=== PATIENT | female | born 1945 | race Caucasian/White ===

== ENCOUNTER 2018-01-18 12:57 | Inpatient (IN) ==
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
[2018-01-18] MEDS ORDERED: *HR* Dextrose 50 % in Water (Syg) 50 ML SYRINGE IVP PRN (14:50)
[2018-01-18] MEDS ORDERED: Dextrose Gel 15 GM/37.5 ML TUBE PO PRN ×2 (14:50)
[2018-01-18] MEDS ORDERED: D5% in Water 1,000 ML IVC PRN (14:50)
[2018-01-18] MEDS ORDERED: Ondansetron ODT 4 MG TAB.RAPDIS SL PRN (14:51)
[2018-01-18] MEDS ORDERED: OXYCODONE HCL 5 MG PO PRN (14:51)
[2018-01-18] MEDS ORDERED: Mag Hydrox/Al Hydrox/Simeth 30 ML UDC PO PRN (14:51)
[2018-01-18] MEDS: Acetaminophen 325 MG TABLET PO PRN ×2 (16:10→23:26)
[2018-01-18] MEDS: *HR* OxyCODONE Immed Rel 5 MG TABLET PO PRN ×2 (17:01→21:53)
[2018-01-18] MEDS: Insulin LISPRO 300 UNITS/3 ML VIAL SQ SCH (17:25)
[2018-01-18] MEDS ORDERED: Insulin LISPRO 300 UNITS/3 ML VIAL SQ SCH (21:00)
[2018-01-18] MEDS: Doxycycline 100 MG CAPSULE PO SCH (21:52)
[2018-01-18] MEDS: Latanoprost 2.5 ML BOTTLE BOTH EYES SCH (21:53)
[2018-01-18] MEDS: Progesterone Micronized 200 MG PO SCH (21:55)
[2018-01-19] MEDS: *HR* OxyCODONE Immed Rel 5 MG TABLET PO PRN ×5 (04:25→21:58)
[2018-01-19] MEDS: *HR* Enoxaparin 40 MG/0.4 ML SYRINGE SQ SCH (04:25)
[2018-01-19] MEDS: Insulin LISPRO 300 UNITS/3 ML VIAL SQ SCH (08:57)
[2018-01-19] MEDS: Niacin (24 HR) 500 MG TAB.ER.24H PO SCH (09:04)
[2018-01-19] MEDS: Multivit/Ca/Min/Fe/FA 1 TAB TABLET PO SCH (09:05)
[2018-01-19] MEDS: Cholecalciferol (D-3) 1,000 UNIT TABLET PO SCH (09:05)
[2018-01-19] MEDS: Verapamil ER (24 HR) 240 MG TABLET.ER PO SCH (09:05)
[2018-01-19] MEDS: Sennosides/Docusate Sodium TABLET PO SCH (09:05)
[2018-01-19] MEDS: Lactobacillus 1 EACH CAP.SPRINK PO SCH (09:05)
[2018-01-19] MEDS: Furosemide 20 MG TABLET PO SCH (09:05)
[2018-01-19] MEDS: Doxycycline 100 MG CAPSULE PO SCH ×2 (09:05→21:29)
[2018-01-19] MEDS: DHEA PO SCH (09:09)
[2018-01-19] MEDS: ICAPS AREDS FORMULA PO SCH (09:09)
[2018-01-19] MEDS: NATURAL THYROID PO SCH (09:09)
--- NOTE | 2018-01-19 09:40 | Internal Med Progress Note ---
Date of Encounter: 01/19/18 Time of Encounter: 09:37 - Assessment and plan (1) Radial fracture Current Visit: Yes Status: Acute Assessment and plan: Continue brace. Pain controlled. Qualifiers: Encounter type: subsequent encounter Radius location: shaft Fracture type : closed Fracture morphology: unspecified fracture morphology Laterality: right Fracture healing: with routine healing Qualified Code(s): S52.301D - Unspecified fracture of shaft of right radius, subsequent encounter for closed fracture with routine healing (2) Tibial plateau fracture Current Visit: Yes Status: Acute Assessment and plan: Continue brace. To remain nonweightbearing right lower extremity. Continue PT and OT. Monitor for effectiveness pain medication. Qualifiers: Encounter type: subsequent encounter Fracture type: closed Laterality: right Fracture healing: with routine healing Qualified Code(s): S82.141D - Displaced bicondylar fracture of right tibia, subsequent encounter for closed fracture with routine healing (3) Hypertension Current Visit: Yes Status: Acute Assessment and plan: Controlled with current medication. Monitor blood pressure. Qualifiers: Hypertension type: essential hypertension Qualified Code(s): I10 - Essential (primary) hypertension (4) Chronic kidney disease, stage III (moderate) Current Visit: Yes Status: Acute Assessment and plan: Labs ordered for today. Will follow for results. (5) Rib fractures Current Visit: Yes Status: Acute Assessment and plan: Lidoderm patch to bilateral ribs. Qualifiers: Encounter type: subsequent encounter Rib fracture type: multiple ribs Fracture type: closed Laterality: bilateral Fracture healing: with routine healing Qualified Code(s): S22.43XD - Multiple fractures of ribs, bilateral, subsequent encounter for fracture with routine healing (6) Traumatic compression fracture of T8 thoracic vertebra Current Visit: Yes Status: Acute Assessment and plan: Follow up with ortho as scheduled. Continue current pain medication. Qualifiers: Encounter type: subsequent encounter Fracture healing: with routine healing Qualified Code(s): S22.060D - Wedge compression fracture of T7-T8 vertebra, subsequent encounter for fracture with routine healing (7) Urinary tract infection Current Visit: Yes Status: Acute Assessment and plan: Patient states asymptomatic. Continue doxycycline. Qualifiers: Urinary tract infection type: site unspecified Qualified Code(s): N39.0 - Urinary tract infection, site not specified - Time Spent With Patient 25 - 35 minutes - Subjective Interval history: Patient resting in bed. Family at side. States increased knee pain throughout the night. Denies fever, chills, nausea, vomiting or diarrhea. States Lidoderm patch helps with pain in ribs. Has been using incentive spirometer. Maintaining appetite and hydration states bowels moved yesterday. Denies shortness of breath or chest pain. - Constitutional Vitals: Temp Pulse Resp BP Pulse Ox 98.4 F 74 20 168/74 95 01/19/18 08:00 01/19/18 08:00 01/19/18 08:00 01/19/18 08:00 01/19/18 08:00 General appearance: Present: cooperative, A&O X 3, pleasant, no acute distress, answers questions appropriately - Head Head exam: Present: atraumatic, normocephalic - Eye Eye exam: Present: PERRL, conjuntiva pink, sclera anicteric Pupils: Present: PERRL - Neck Neck exam general surgery: Present: supple, trachea midline. Absent: lymphadenopathy - Respiratory Respiratory exam: Present: CTAB. Absent: accessory muscle use, rales, rhonchi, wheezes - Cardiovascular Cardiovascular exam: Present: RRR, +S1, +S2. Absent: diastolic murmur, gallop, rubs, systolic murmur - GI/Abdominal GI/Abdominal exam: Present: normal bowel sounds, soft, no peritoneal signs. Absent: distended, tenderness - Extremities Exam Extremities exam: Present: warm, radial pulses palpable and symmetrical. Absent : calf tenderness, cyanotic, pedal edema - Incison Comments: right Forearm wrap and brace intact. RLE wrapped with ernie wrap ad brace on. - Neurological Exam Neurological exam: Present: CN II-XII intact, oriented X3, no focal deficits. Absent: pronater drift, facial droop, speech deficit - Skin Skin exam: Present: dry, intact Consult Discharge Plan - Plan Referrals: Latoya Haro [Primary Care Provider] - Russell Starkey [Family Provider] -
[2018-01-19] MEDS: Acetaminophen 325 MG TABLET PO PRN ×2 (10:33→21:31)
[2018-01-19 13:09] LABS: Hematocrit 28.8 % (35.3-44.9); Hemoglobin 9.2 g/dL (11.5-15.4); Mean Corpuscular HGB Conc 31.9 g/dL (31.6-35.5); Mean Corpuscular Hemoglobin 31.2 pg (28.0-33.3); Mean Corpuscular Volume 97.6 fL (83.0-100.0); Mean Platelet Volume 9.7 fL (9.4-12.4); Platelet Count 261 K/mcL (140-400); Red Blood Count 2.95 M/mcL (3.82-4.97); Red Cell Distribution Width 14.7 % (11.5-14.5)
[2018-01-19 13:25] LABS: Uric Acid 5.5 mg/dL (2.3-7.6)
[2018-01-19 20:12] LABS: C-Reactive Protein 276 mg/L (Less than 10)
[2018-01-19] MEDS: Latanoprost 2.5 ML BOTTLE BOTH EYES SCH (21:30)
[2018-01-19] MEDS: Progesterone Micronized 200 MG PO SCH (21:30)
[2018-01-20] MEDS: *HR* Enoxaparin 40 MG/0.4 ML SYRINGE SQ SCH (05:07)
[2018-01-20] MEDS: *HR* OxyCODONE Immed Rel 5 MG TABLET PO PRN ×5 (05:08→22:10)
[2018-01-20] MEDS: NATURAL THYROID PO SCH (05:13)
[2018-01-20] MEDS: Verapamil ER (24 HR) 240 MG TABLET.ER PO SCH (08:46)
[2018-01-20] MEDS: Furosemide 20 MG TABLET PO SCH (08:46)
[2018-01-20] MEDS: Sennosides/Docusate Sodium TABLET PO SCH (08:46)
[2018-01-20] MEDS: Doxycycline 100 MG CAPSULE PO SCH ×2 (08:46→22:09)
[2018-01-20] MEDS: Acetaminophen 325 MG TABLET PO PRN ×2 (08:46→15:46)
[2018-01-20] MEDS: Lactobacillus 1 EACH CAP.SPRINK PO SCH (08:46)
[2018-01-20] MEDS: Multivit/Ca/Min/Fe/FA 1 TAB TABLET PO SCH (08:47)
[2018-01-20] MEDS: Niacin (24 HR) 500 MG TAB.ER.24H PO SCH (08:47)
[2018-01-20] MEDS: Cholecalciferol (D-3) 1,000 UNIT TABLET PO SCH (08:47)
[2018-01-20] MEDS: DHEA PO SCH (08:50)
[2018-01-20] MEDS: ICAPS AREDS FORMULA PO SCH (08:50)
[2018-01-20] MEDS ORDERED: Levofloxacin 750 MG/150 ML 750 MG/150 ML BAG IVPB SCH (10:00)
--- NOTE | 2018-01-20 10:40 | Internal Med Progress Note ---
Date of Encounter: 01/20/18 Time of Encounter: 10:37 - Assessment and plan (1) Radial fracture Current Visit: Yes Status: Acute Qualifiers: Encounter type: subsequent encounter Radius location: shaft Fracture type : closed Fracture morphology: unspecified fracture morphology Laterality: right Fracture healing: with routine healing Qualified Code(s): S52.301D - Unspecified fracture of shaft of right radius, subsequent encounter for closed fracture with routine healing (2) Tibial plateau fracture Current Visit: Yes Status: Acute Assessment and plan: I suspect that this is not an infection of the joint, postsurgical. See my comments to patient, above. Qualifiers: Encounter type: subsequent encounter Fracture type: closed Laterality: right Fracture healing: with routine healing Qualified Code(s): S82.141D - Displaced bicondylar fracture of right tibia, subsequent encounter for closed fracture with routine healing (3) Hypertension Current Visit: Yes Status: Acute Assessment and plan: We will continue to monitor. Qualifiers: Hypertension type: essential hypertension Qualified Code(s): I10 - Essential (primary) hypertension (4) Chronic kidney disease, stage III (moderate) Current Visit: Yes Status: Acute Assessment and plan: We will obtain a basic metabolic panel as we will be starting new antibiotics. (5) Gout Current Visit: Yes Status: Acute Assessment and plan: Uric acid level is unremarkable. Qualifiers: Gout site: unspecified site Gout etiology: unspecified cause Chronicity: chronic Presence of tophus: without tophus Qualified Code(s): M1A.9XX0 - Chronic gout, unspecified, without tophus (tophi) (6) Glaucoma Current Visit: Yes Status: Acute Assessment and plan: We will continue multiple drops as before. Qualifiers: Glaucoma type: open-angle Open angle glaucoma type: unspecified type Laterality: bilateral Glaucoma stage: stage unspecified Qualified Code(s): H40.10X0 - Unspecified open-angle glaucoma, stage unspecified (7) Macular degeneration Current Visit: Yes Status: Acute Assessment and plan: Patient on supplements as before. Qualifiers: Macular degeneration type: unspecified type Eye laterality: bilateral Qualified Code(s): H35.30 - Unspecified macular degeneration (8) Suspected sleep apnea Current Visit: Yes Status: Acute Assessment and plan: She had no desaturation with oxygen, last night. She asked that her oxygen saturation monitor BP discontinued and this was done. (9) Rib fractures Current Visit: Yes Status: Acute Assessment and plan: Clinically doing well and lungs are clear. Qualifiers: Encounter type: subsequent encounter Rib fracture type: multiple ribs Fracture type: closed Laterality: bilateral Fracture healing: with routine healing Qualified Code(s): S22.43XD - Multiple fractures of ribs, bilateral, subsequent encounter for fracture with routine healing (10) Traumatic compression fracture of T8 thoracic vertebra Current Visit: Yes Status: Acute Assessment and plan: Not much complaint of pain with this as pain in the knee is far worse. Qualifiers: Encounter type: subsequent encounter Fracture healing: with routine healing Qualified Code(s): S22.060D - Wedge compression fracture of T7-T8 vertebra, subsequent encounter for fracture with routine healing (11) Urinary tract infection Current Visit: Yes Status: Acute Assessment and plan: May be recurrent so will get a straight catheter urinalysis with reflex culture. We will make sure that she is not having a urinary tract infection which seeded her right knee. Qualifiers: Urinary tract infection type: site unspecified Qualified Code(s): N39.0 - Urinary tract infection, site not specified - Subjective Interval history: Patient still having lots of knee pain in any emotion is problematic. She states that the pain is generally okay with pain medicine and at rest but motion severely hurts her. She has not noticed much drainage. Nursing notes foul-smelling and dark urine and patient concurs. She denies dysuria, hematuria, etc. Bowels are unremarkable. Patient has no complaint of chest discomfort, dyspnea, orthopnea, palpitations, nausea or vomiting, constipation or diarrhea, other changes in bowel habits, difficulty with urination, rash or itching, or other new complaints, except as mentioned above. Review of systems is otherwise negative. I discussed management of her care with nursing staff. She asks about her bilateral carotid duplex which has not yet returned. I explained to her that she is growing a gram-negative maria d and we will begin him. Levaquin IV. We will discuss with her surgeon on Monday and she is to have follow-up on Monday. I explained that we may have change in sensitivity in antibiotic, tomorrow. - Constitutional Vitals: Temp Pulse Resp BP Pulse Ox 98.3 F 69 16 173/76 95 01/20/18 07:31 01/20/18 07:31 01/20/18 07:31 01/20/18 07:31 01/20/18 07:31 General appearance: Present: cooperative, pleasant, answers questions appropriately Exam: Examined with nurse Moira and her [id number]. Examination: (Except as mentioned above): General: In no apparent distress. Alert and oriented 3. Nondiaphoretic. Head: Atraumatic and normocephalic. Respiratory: No use of accessory muscles. Lungs are clear throughout. Normal airflow. Cardiovascular: Regular rate and rhythm without murmur appreciated. Abdomen: Bowel sounds are normal. No hepatosplenomegaly mass or tenderness appreciated. Obese and therefore difficult to palpate deeply. Extremities: No cyanosis clubbing or edema. Wound drainage is not assessed but patient is left wrapped. In addition, note is made of tenderness at calf diffusely, both anterior and posterior. Skin: Warm and non-diaphoretic with no new lesions noted. Internal Medicine: Result - Labs CBC & Chem 7: 01/19/18 12:55 Labs: Short CBC 01/19/18 Range/Units 12:55 WBC 12.6 H (4.3-11.1) K/mcL Hgb 9.2 L (11.5-15.4) g/dL Hct 28.8 L (35.3-44.9) % Plt Count 261 (140-400) K/mcL Consult Discharge Plan - Plan Referrals: Latoya Haro [Primary Care Provider] - Russell Starkey [Family Provider] -
[2018-01-20] MEDS ORDERED: levoFLOXacin 500 MG TABLET PO SCH (15:15)
[2018-01-20 15:41] LABS: Bilirubin,Urine Negative (Negative); Blood,Urine Negative (Negative); Clarity,Urine Clear (Clear); Color,Urine Yellow (Yellow); Glucose,Urine (UA) Normal (Normal); Ketones,Urine Negative (Negative); Leukocyte Esterase,Urine Large (Negative); Nitrite,Urine Negative (Negative); Protein,Urine Negative (Neg-Trace); Urobilinogen,Urine Normal (Normal)
[2018-01-20 16:33] LABS: Bacteria,Urine Many per hpf (None-Few); Squamous Epithelial Cell,Urine Many per lpf (None-Few); WBC,Urine 15-30 per hpf (0-3)
[2018-01-20 18:19] LABS: Bilirubin,Urine Negative (Negative); Blood,Urine Negative (Negative); Clarity,Urine Clear (Clear); Color,Urine Yellow (Yellow); Glucose,Urine (UA) Normal (Normal); Ketones,Urine Negative (Negative); Leukocyte Esterase,Urine Moderate (Negative); Nitrite,Urine Positive (Negative); Protein,Urine Negative (Neg-Trace)
[2018-01-20 18:28] LABS: Bacteria,Urine Many per hpf (None-Few); Squamous Epithelial Cell,Urine Few per lpf (None-Few)
[2018-01-20 18:29] LABS: RBC,Urine 0-3 per hpf (0-3); WBC,Urine 15-30 per hpf (0-3)
[2018-01-20] MEDS: Latanoprost 2.5 ML BOTTLE BOTH EYES SCH (22:08)
[2018-01-20] MEDS: Progesterone Micronized 200 MG PO SCH (22:11)
[2018-01-21] MEDS: *HR* OxyCODONE Immed Rel 5 MG TABLET PO PRN ×5 (02:40→21:40)
[2018-01-21] MEDS: Acetaminophen 325 MG TABLET PO PRN ×2 (03:27→18:49)
[2018-01-21] MEDS: *HR* Enoxaparin 40 MG/0.4 ML SYRINGE SQ SCH (07:00)
[2018-01-21] MEDS: NATURAL THYROID PO SCH (07:05)
[2018-01-21] MEDS: Sennosides/Docusate Sodium TABLET PO SCH (08:39)
[2018-01-21] MEDS: Doxycycline 100 MG CAPSULE PO SCH ×2 (08:39→21:39)
[2018-01-21] MEDS: Lactobacillus 1 EACH CAP.SPRINK PO SCH (08:39)
[2018-01-21] MEDS: Niacin (24 HR) 500 MG TAB.ER.24H PO SCH (08:39)
[2018-01-21] MEDS: Furosemide 20 MG TABLET PO SCH (08:39)
[2018-01-21] MEDS: Verapamil ER (24 HR) 240 MG TABLET.ER PO SCH (08:39)
[2018-01-21] MEDS: Cholecalciferol (D-3) 1,000 UNIT TABLET PO SCH (08:39)
[2018-01-21] MEDS: Multivit/Ca/Min/Fe/FA 1 TAB TABLET PO SCH (08:39)
[2018-01-21] MEDS: DHEA PO SCH (08:40)
[2018-01-21] MEDS: ICAPS AREDS FORMULA PO SCH (08:40)
[2018-01-21 09:01] LABS: BUN/Creatinine Ratio 24 (6-26); Blood Urea Nitrogen 25 mg/dL (8-23); Calcium 9.2 mg/dL (8.6-10.3); Carbon Dioxide 19 mEq/L (23-29); Chloride 102 mEq/L (98-107); Glucose 144 mg/dL (70-105); Osmolality,Calculated 289 (280-300); Potassium 4.1 mEq/L (3.5-5.1); Sodium 136 mEq/L (136-145); eGFR For Non-African Americans 52 (> 60)
[2018-01-21] MEDS: Levofloxacin 750 MG/150 ML 750 MG/150 ML BAG IVPB SCH (09:33)
--- NOTE | 2018-01-21 12:19 | Internal Med Progress Note ---
Date of Encounter: 01/21/18 Time of Encounter: 12:17 - Assessment and plan (1) Radial fracture Current Visit: Yes Status: Acute Assessment and plan: Continue brace. Pain controlled. Qualifiers: Encounter type: subsequent encounter Radius location: shaft Fracture type : closed Fracture morphology: unspecified fracture morphology Laterality: right Fracture healing: with routine healing Qualified Code(s): S52.301D - Unspecified fracture of shaft of right radius, subsequent encounter for closed fracture with routine healing (2) Tibial plateau fracture Current Visit: Yes Status: Acute Assessment and plan: Continue brace. To remain nonweightbearing right lower extremity. Continue PT and OT. Monitor for effectiveness pain medication. Increased oxycodone to 5 mg to 10 mg every 4 hours as needed for pain. Qualifiers: Encounter type: subsequent encounter Fracture type: closed Laterality: right Fracture healing: with routine healing Qualified Code(s): S82.141D - Displaced bicondylar fracture of right tibia, subsequent encounter for closed fracture with routine healing (3) Hypertension Current Visit: Yes Status: Acute Assessment and plan: Controlled with current medication. Monitor blood pressure. Qualifiers: Hypertension type: essential hypertension Qualified Code(s): I10 - Essential (primary) hypertension (4) Chronic kidney disease, stage III (moderate) Current Visit: Yes Status: Acute Assessment and plan: Monitor labs (5) Rib fractures Current Visit: Yes Status: Acute Assessment and plan: Lidoderm patch to bilateral ribs. Qualifiers: Encounter type: subsequent encounter Rib fracture type: multiple ribs Fracture type: closed Laterality: bilateral Fracture healing: with routine healing Qualified Code(s): S22.43XD - Multiple fractures of ribs, bilateral, subsequent encounter for fracture with routine healing (6) Traumatic compression fracture of T8 thoracic vertebra Current Visit: Yes Status: Acute Assessment and plan: Follow up with ortho as scheduled. Continue current pain medication. Qualifiers: Encounter type: subsequent encounter Fracture healing: with routine healing Qualified Code(s): S22.060D - Wedge compression fracture of T7-T8 vertebra, subsequent encounter for fracture with routine healing (7) Urinary tract infection Current Visit: Yes Status: Acute Assessment and plan: Urinalysis sent to lab yesterday. Culture pending. Currently on Levaquin and doxycycline. Qualifiers: Urinary tract infection type: site unspecified Qualified Code(s): N39.0 - Urinary tract infection, site not specified - Time Spent With Patient less than 15 minutes - Subjective Interval history: Patient resting in bed. Family at side. Increased pain below right knee with any type of slight movement. Dressing change to right lower extremity completed. Moderate amount of singleness drainage. Slight foul odor present. Patient on Levaquin IV. Susceptible to bacteria on wound culture. Has follow- up appointment with surgeon on Monday. Denies fever, chills, nausea, vomiting or diarrhea. Maintaining appetite and hydration. Patient did have bowel movement yesterday. Increased oxycodone to 5 to 10 mg every 4 hours as needed for pain. - Constitutional Vitals: Temp Pulse Resp BP Pulse Ox 97.2 F L 70 17 148/61 94 01/21/18 07:56 01/21/18 07:56 01/21/18 07:56 01/21/18 07:56 01/21/18 07:56 General appearance: Present: cooperative, A&O X 3, pleasant, answers questions appropriately - Head Head exam: Present: atraumatic, normocephalic - Eye Eye exam: Present: PERRL, conjuntiva pink, sclera anicteric Pupils: Present: PERRL - Neck Neck exam general surgery: Present: supple, trachea midline. Absent: lymphadenopathy - Respiratory Respiratory exam: Present: CTAB. Absent: accessory muscle use, rales, rhonchi, wheezes - Cardiovascular Cardiovascular exam: Present: RRR, +S1, +S2. Absent: diastolic murmur, gallop, rubs, systolic murmur - GI/Abdominal GI/Abdominal exam: Present: normal bowel sounds, soft, no peritoneal signs. Absent: distended, tenderness - Extremities Exam Extremities exam: Present: warm, radial pulses palpable and symmetrical. Absent : calf tenderness, cyanotic, pedal edema - Incison Comments: Right lower extremity incision with modern amounted drainage. Sutures intact. [place] intact to other incisions. - Neurological Exam Neurological exam: Present: CN II-XII intact, oriented X3, no focal deficits. Absent: pronater drift, facial droop, speech deficit - Skin Skin exam: Present: dry, intact Internal Medicine: Result - Labs CBC & Chem 7: 01/19/18 12:55 01/19/18 12:55 Labs: BMP 01/19/18 12:55 Sodium 136 Potassium 4.1 Chloride 102 Carbon Dioxide 19 L BUN 25 H Creatinine 1.04 Glucose 144 H Calcium 9.2 Urine 01/20/18 01/20/18 Range/Units 15:00 17:50 Urine Color Yellow Yellow (Yellow) Urine Clarity Clear Clear (Clear) Urine pH 6.0 6.0 (5.0-8.0) pH Units Ur Specific [place] 1.010 1.020 (1.010-1.025) Urine Protein Negative Negative (Neg-Trace) mg/dL Urine Glucose (UA) Normal Normal (Normal) mg/dL Consult Discharge Plan - Plan Referrals: Latoya Haro [Primary Care Provider] - Russell Starkey [Family Provider] -
[2018-01-21] MEDS: Progesterone Micronized 200 MG PO SCH (21:39)
[2018-01-21] MEDS: Latanoprost 2.5 ML BOTTLE BOTH EYES SCH (21:40)
[2018-01-22] MEDS: Acetaminophen 325 MG TABLET PO PRN (02:28)
[2018-01-22] MEDS: *HR* OxyCODONE Immed Rel 5 MG TABLET PO PRN ×5 (03:39→20:40)
[2018-01-22] MEDS: NATURAL THYROID PO SCH (06:32)
[2018-01-22] MEDS: *HR* Enoxaparin 40 MG/0.4 ML SYRINGE SQ SCH (06:32)
[2018-01-22] MEDS: Verapamil ER (24 HR) 240 MG TABLET.ER PO SCH (08:19)
[2018-01-22] MEDS: Doxycycline 100 MG CAPSULE PO SCH ×2 (08:19→20:39)
[2018-01-22] MEDS: Lactobacillus 1 EACH CAP.SPRINK PO SCH (08:19)
[2018-01-22] MEDS: Cholecalciferol (D-3) 1,000 UNIT TABLET PO SCH (08:20)
[2018-01-22] MEDS: Furosemide 20 MG TABLET PO SCH (08:20)
[2018-01-22] MEDS: Sennosides/Docusate Sodium TABLET PO SCH (08:20)
[2018-01-22] MEDS: Niacin (24 HR) 500 MG TAB.ER.24H PO SCH (08:20)
[2018-01-22] MEDS: Multivit/Ca/Min/Fe/FA 1 TAB TABLET PO SCH (08:20)
[2018-01-22] MEDS: Levofloxacin 750 MG/150 ML 750 MG/150 ML BAG IVPB SCH (08:24)
[2018-01-22] MEDS: DHEA PO SCH (08:31)
[2018-01-22] MEDS: ICAPS AREDS FORMULA PO SCH (08:32)
--- NOTE | 2018-01-22 09:28 | Internal Med Progress Note ---
Date of Encounter: 01/22/18 Time of Encounter: 09:26 - Assessment and plan (1) Radial fracture Current Visit: Yes Status: Acute Assessment and plan: Continue brace. Pain controlled. Qualifiers: Encounter type: subsequent encounter Radius location: shaft Fracture type : closed Fracture morphology: unspecified fracture morphology Laterality: right Fracture healing: with routine healing Qualified Code(s): S52.301D - Unspecified fracture of shaft of right radius, subsequent encounter for closed fracture with routine healing (2) Tibial plateau fracture Current Visit: Yes Status: Acute Assessment and plan: Continue brace. To remain nonweightbearing right lower extremity. Continue PT and OT. Monitor for effectiveness pain medication. Increased oxycodone to 5 mg to 10 mg every 4 hours as needed for pain. Qualifiers: Encounter type: subsequent encounter Fracture type: closed Laterality: right Fracture healing: with routine healing Qualified Code(s): S82.141D - Displaced bicondylar fracture of right tibia, subsequent encounter for closed fracture with routine healing (3) Hypertension Current Visit: Yes Status: Acute Assessment and plan: Controlled with current medication. Monitor blood pressure. Qualifiers: Hypertension type: essential hypertension Qualified Code(s): I10 - Essential (primary) hypertension (4) Chronic kidney disease, stage III (moderate) Current Visit: Yes Status: Acute Assessment and plan: Monitor labs (5) Rib fractures Current Visit: Yes Status: Acute Assessment and plan: Lidoderm patch to bilateral ribs. Qualifiers: Encounter type: subsequent encounter Rib fracture type: multiple ribs Fracture type: closed Laterality: bilateral Fracture healing: with routine healing Qualified Code(s): S22.43XD - Multiple fractures of ribs, bilateral, subsequent encounter for fracture with routine healing (6) Traumatic compression fracture of T8 thoracic vertebra Current Visit: Yes Status: Acute Assessment and plan: Follow up with ortho as scheduled. Continue current pain medication. Qualifiers: Encounter type: subsequent encounter Fracture healing: with routine healing Qualified Code(s): S22.060D - Wedge compression fracture of T7-T8 vertebra, subsequent encounter for fracture with routine healing (7) Urinary tract infection Current Visit: Yes Status: Acute Assessment and plan: Urinalysis sent to lab yesterday. Culture pending. Currently on Levaquin and doxycycline. Qualifiers: Urinary tract infection type: site unspecified Qualified Code(s): N39.0 - Urinary tract infection, site not specified - Time Spent With Patient 25 - 35 minutes - Subjective Interval history: Patient resting in bed. Increased pain below right knee with any type of slight movement, but pain was controlled better with oxycodone increased yesterday. Patient on Levaquin IV. Susceptible to bacteria on wound culture. urine culture pending. Has follow-up appointment with surgeon on Monday. Denies fever, chills, nausea, vomiting or diarrhea. Maintaining appetite and hydration. Patient did have bowel movement yesterday. encourages to get up and out of bed with therapy today. - Constitutional Vitals: Temp Pulse Resp BP Pulse Ox 98.2 F 66 17 134/66 95 01/22/18 07:47 01/22/18 07:47 01/22/18 07:47 01/22/18 07:47 01/22/18 07:47 General appearance: Present: cooperative, A&O X 3, pleasant, answers questions appropriately - Head Head exam: Present: atraumatic, normocephalic - Eye Eye exam: Present: PERRL, conjuntiva pink, sclera anicteric Pupils: Present: PERRL - Neck Neck exam general surgery: Present: supple, trachea midline. Absent: lymphadenopathy - Respiratory Respiratory exam: Present: CTAB. Absent: accessory muscle use, rales, rhonchi, wheezes - Cardiovascular Cardiovascular exam: Present: RRR, +S1, +S2. Absent: diastolic murmur, gallop, rubs, systolic murmur - GI/Abdominal GI/Abdominal exam: Present: normal bowel sounds, soft, no peritoneal signs. Absent: distended, tenderness - Extremities Exam Extremities exam: Present: warm, radial pulses palpable and symmetrical. Absent : calf tenderness, cyanotic, pedal edema - Incison Comments: RLE drsg dry and intact. - Neurological Exam Neurological exam: Present: CN II-XII intact, oriented X3, no focal deficits. Absent: pronater drift, facial droop, speech deficit - Skin Skin exam: Present: dry, intact Internal Medicine: Result - Labs CBC & Chem 7: 01/19/18 12:55 01/19/18 12:55 Consult Discharge Plan - Plan Referrals: Latoya Haro [Primary Care Provider] - Russell Starkey [Family Provider] -
[2018-01-22 11:02] LABS: Calcium 9.3 mg/dL (8.6-10.3); Potassium 4.1 mEq/L (3.5-5.1)
[2018-01-22 11:03] LABS: Hematocrit 30.1 % (35.3-44.9); Hemoglobin 9.4 g/dL (11.5-15.4); Mean Corpuscular HGB Conc 31.2 g/dL (31.6-35.5); Mean Corpuscular Hemoglobin 30.3 pg (28.0-33.3); Mean Corpuscular Volume 97.1 fL (83.0-100.0); Mean Platelet Volume 9.5 fL (9.4-12.4); Platelet Count 373 K/mcL (140-400); Red Cell Distribution Width 15.1 % (11.5-14.5)
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
[2018-01-22] MEDS: Progesterone Micronized 200 MG PO SCH (20:45)
[2018-01-22] MEDS: Latanoprost 2.5 ML BOTTLE BOTH EYES SCH (20:46)
[2018-01-23] MEDS: *HR* OxyCODONE Immed Rel 5 MG TABLET PO PRN ×5 (01:13→22:52)
[2018-01-23] MEDS: NATURAL THYROID PO SCH (05:32)
[2018-01-23] MEDS: *HR* Enoxaparin 40 MG/0.4 ML SYRINGE SQ SCH (05:32)
[2018-01-23] MEDS ORDERED: *HR* OxyCODONE Immed Rel 5 MG TABLET PO STA (08:11)
[2018-01-23] MEDS: Verapamil ER (24 HR) 240 MG TABLET.ER PO SCH (08:16)
[2018-01-23] MEDS: Furosemide 20 MG TABLET PO SCH (08:17)
[2018-01-23] MEDS: Multivit/Ca/Min/Fe/FA 1 TAB TABLET PO SCH (08:17)
[2018-01-23] MEDS: Cholecalciferol (D-3) 1,000 UNIT TABLET PO SCH (08:17)
[2018-01-23] MEDS: Doxycycline 100 MG CAPSULE PO SCH ×2 (08:19→20:32)
[2018-01-23] MEDS: Niacin (24 HR) 500 MG TAB.ER.24H PO SCH (08:19)
[2018-01-23] MEDS: Lactobacillus 1 EACH CAP.SPRINK PO SCH (08:19)
[2018-01-23] MEDS: ICAPS AREDS FORMULA PO SCH (08:24)
[2018-01-23] MEDS: DHEA PO SCH (08:24)
[2018-01-23] MEDS: Sennosides/Docusate Sodium TABLET PO SCH (08:28)
--- NOTE | 2018-01-23 11:06 | Internal Med Progress Note ---
Date of Encounter: 01/23/18 Time of Encounter: 11:03 - Assessment and plan (1) Radial fracture Current Visit: Yes Status: Acute Qualifiers: Encounter type: subsequent encounter Radius location: shaft Fracture type : closed Fracture morphology: unspecified fracture morphology Laterality: right Fracture healing: with routine healing Qualified Code(s): S52.301D - Unspecified fracture of shaft of right radius, subsequent encounter for closed fracture with routine healing (2) Tibial plateau fracture Current Visit: Yes Status: Acute Qualifiers: Encounter type: subsequent encounter Fracture type: closed Laterality: right Fracture healing: with routine healing Qualified Code(s): S82.141D - Displaced bicondylar fracture of right tibia, subsequent encounter for closed fracture with routine healing (3) Hypertension Current Visit: Yes Status: Acute Qualifiers: Hypertension type: essential hypertension Qualified Code(s): I10 - Essential (primary) hypertension (4) Chronic kidney disease, stage III (moderate) Current Visit: Yes Status: Acute (5) Gout Current Visit: Yes Status: Acute Qualifiers: Gout site: unspecified site Gout etiology: unspecified cause Chronicity: chronic Presence of tophus: without tophus Qualified Code(s): M1A.9XX0 - Chronic gout, unspecified, without tophus (tophi) (6) Glaucoma Current Visit: Yes Status: Acute Qualifiers: Glaucoma type: open-angle Open angle glaucoma type: unspecified type Laterality: bilateral Glaucoma stage: stage unspecified Qualified Code(s): H40.10X0 - Unspecified open-angle glaucoma, stage unspecified (7) Macular degeneration Current Visit: Yes Status: Acute Qualifiers: Macular degeneration type: unspecified type Eye laterality: bilateral Qualified Code(s): H35.30 - Unspecified macular degeneration (8) Suspected sleep apnea Current Visit: Yes Status: Acute (9) Rib fractures Current Visit: Yes Status: Acute Qualifiers: Encounter type: subsequent encounter Rib fracture type: multiple ribs Fracture type: closed Laterality: bilateral Fracture healing: with routine healing Qualified Code(s): S22.43XD - Multiple fractures of ribs, bilateral, subsequent encounter for fracture with routine healing (10) Traumatic compression fracture of T8 thoracic vertebra Current Visit: Yes Status: Acute Qualifiers: Encounter type: subsequent encounter Fracture healing: with routine healing Qualified Code(s): S22.060D - Wedge compression fracture of T7-T8 vertebra, subsequent encounter for fracture with routine healing (11) Urinary tract infection Current Visit: Yes Status: Acute Qualifiers: Urinary tract infection type: site unspecified Qualified Code(s): N39.0 - Urinary tract infection, site not specified - Subjective Interval history: Patient is away for an orthopedic appointment, this morning. Had more pain overnight and more warmth and erythema to wound area, per nursing. I spoke with Dr. Yarbrough about her situation and the antibiotics. He plans to see her later this morning. I let him know that she is on doxycycline and Levaquin. Illnesses showed only 10,000 colonies of undetermined gram negative rods. - Constitutional Vitals: Temp Pulse Resp BP Pulse Ox 98.6 F 80 16 165/63 95 01/22/18 20:00 01/22/18 20:00 01/22/18 20:00 01/22/18 20:00 01/22/18 20:00 General appearance: Present: cooperative, A&O X 3, pleasant, answers questions appropriately Internal Medicine: Result - Labs CBC & Chem 7: 01/22/18 10:40 01/22/18 10:40 Labs: Short CBC 01/22/18 Range/Units 10:40 WBC 9.7 (4.3-11.1) K/mcL Hgb 9.4 L (11.5-15.4) g/dL Hct 30.1 L (35.3-44.9) % Plt Count 373 (140-400) K/mcL Urine 01/20/18 Range/Units 17:50 Urine Color Yellow (Yellow) Urine Clarity Clear (Clear) Urine pH 6.0 (5.0-8.0) pH Units Ur Specific [place] 1.020 (1.010-1.025) Urine Protein Negative (Neg-Trace) mg/dL Urine Glucose (UA) Normal (Normal) mg/dL Consult Discharge Plan - Plan Referrals: Latoya Haro [Primary Care Provider] - Russell Starkey [Family Provider] -
[2018-01-23] MEDS: Levofloxacin 750 MG/150 ML 750 MG/150 ML BAG IVPB SCH ×2 (14:37→18:44)
[2018-01-23] MEDS: Latanoprost 2.5 ML BOTTLE BOTH EYES SCH (20:35)
[2018-01-23] MEDS: Progesterone Micronized 200 MG PO SCH (20:40)
[2018-01-24] MEDS: NATURAL THYROID PO SCH (05:12)
[2018-01-24] MEDS: *HR* OxyCODONE Immed Rel 5 MG TABLET PO PRN ×2 (05:12→15:21)
[2018-01-24] MEDS: *HR* Enoxaparin 40 MG/0.4 ML SYRINGE SQ SCH (05:13)
[2018-01-24] MEDS ORDERED: *HR* Morphine 2 MG/ML SYRINGE IVP ONE (09:52)
[2018-01-24] MEDS: Multivit/Ca/Min/Fe/FA 1 TAB TABLET PO SCH (11:01)
[2018-01-24] MEDS: Sennosides/Docusate Sodium TABLET PO SCH (11:01)
[2018-01-24] MEDS: Lactobacillus 1 EACH CAP.SPRINK PO SCH (11:02)
[2018-01-24] MEDS: Doxycycline 100 MG CAPSULE PO SCH ×2 (11:02→20:02)
[2018-01-24] MEDS: Verapamil ER (24 HR) 240 MG TABLET.ER PO SCH (11:02)
[2018-01-24] MEDS: DHEA PO SCH (11:02)
[2018-01-24] MEDS: Cholecalciferol (D-3) 1,000 UNIT TABLET PO SCH (11:02)
[2018-01-24] MEDS: ICAPS AREDS FORMULA PO SCH (11:02)
[2018-01-24] MEDS: Furosemide 20 MG TABLET PO SCH (11:02)
[2018-01-24] MEDS: Niacin (24 HR) 500 MG TAB.ER.24H PO SCH (11:02)
--- NOTE | 2018-01-24 14:31 | Internal Med Progress Note ---
Addendum entered and electronically signed by Bret Saeed MD 01/25/18 14:34: I have personally performed a face to face evaluation on this patient. I have r eviewed and agree with the care plan. History and Exam by me shows: The patient was evaluated by me yesterday but the note was not complete. This documentation is being completed today for that reason. Pain is still an issue. This seems like she cannot function because of that and I discussed with therapy that we would hold her again until at least tomorrow. If she is not improved, will consider transfer for admission and management by her reduced. Discussed care with other providers and/or nursing. Patient has no complaint of chest discomfort, dyspnea, orthopnea, palpitations, nausea or vomiting, constipation or diarrhea, other changes in bowel habits, difficulty with urination, rash or itching, or other new complaints, except as mentioned above. Review of systems is otherwise negative. Examination: (Except as mentioned above): General: In no apparent distress. Alert and oriented 3. Nondiaphoretic. Head: Atraumatic and normocephalic. Respiratory: No use of accessory muscles. Lungs are clear throughout. Normal airflow. Cardiovascular: Regular rate and rhythm without murmur appreciated. Abdomen: Bowel sounds are normal. No hepatosplenomegaly mass or tenderness appreciated. Obese and therefore difficult to palpate deeply. Extremities: No cyanosis clubbing or edema. Skin: Warm and non-diaphoretic with no new lesions noted. Original Note: Date of Encounter: 01/24/18 Time of Encounter: 14:28 - Assessment and plan (1) Radial fracture Current Visit: Yes Status: Acute Assessment and plan: Continue brace. Pain controlled. Qualifiers: Encounter type: subsequent encounter Radius location: shaft Fracture type: closed Fracture morphology: unspecified fracture morphology Laterality: right Fracture healing: with routine healing Qualified Code(s): S52.301D - Unspecified fracture of shaft of right radius, subsequent encounter for closed fracture with routine healing (2) Tibial plateau fracture Current Visit: Yes Status: Acute Assessment and plan: Continue brace. To remain nonweightbearing right lower extremity. Continue PT and OT. Monitor for effectiveness pain medication. Will start OxyContin 20 mg twice a day and continue oxycodone 5 mg every 4 hours as needed for breakthrough pain. Went to see surgeon yesterday. Qualifiers: Encounter type: subsequent encounter Fracture type: closed Laterality: right Fracture healing: with routine healing Qualified Code(s): S82.141D - Displaced bicondylar fracture of right tibia, subsequent encounter for closed fracture with routine healing (3) Hypertension Current Visit: Yes Status: Acute Assessment and plan: Controlled with current medication. Monitor blood pressure. Qualifiers: Hypertension type: essential hypertension Qualified Code(s): I10 - Essential (primary) hypertension (4) Chronic kidney disease, stage III (moderate) Current Visit: Yes Status: Acute Assessment and plan: Monitor labs (5) Rib fractures Current Visit: Yes Status: Acute Assessment and plan: Lidoderm patch to bilateral ribs. Qualifiers: Encounter type: subsequent encounter Rib fracture type: multiple ribs Fracture type: closed Laterality: bilateral Fracture healing: with routine healing Qualified Code(s): S22.43XD - Multiple fractures of ribs, bilateral, subsequent encounter for fracture with routine healing (6) Traumatic compression fracture of T8 thoracic vertebra Current Visit: Yes Status: Acute Assessment and plan: Follow up with ortho as scheduled. Continue current pain medication. Where brace when up Qualifiers: Encounter type: subsequent encounter Fracture healing: with routine healing Qualified Code(s): S22.060D - Wedge compression fracture of T7-T8 vertebra, subsequent encounter for fracture with routine healing (7) Urinary tract infection Current Visit: Yes Status: Acute Assessment and plan: Urinalysis sent to lab yesterday. Culture pending. Currently on Levaquin and doxycycline. Qualifiers: Urinary tract infection type: site unspecified Qualified Code(s): N39.0 - Urinary tract infection, site not specified - Time Spent With Patient 25 - 35 minutes - Subjective Interval history: Patient resting in bed. Significant amount of pain to right lower extremity. Will start OxyContin 20 mg extended-release twice today and continue oxycodone 5 mg every 4 hours for breakthrough pain as needed. Patient on Levaquin IV. S usceptible to bacteria on wound culture. Placed in isolation due to the ESBL in urine. Has follow-up appointment with surgeon on Monday. Denies fever, chills, nausea, vomiting or diarrhea. Maintaining appetite and hydration. Patient did have bowel movement yesterday. Take it up with therapy today. Up in wheelchair into the gym. Will hold therapy for the rest the day today and tomorrow until pain is better controlled. - Constitutional Vitals: Temp Pulse Resp BP Pulse Ox 98.4 F 80 17 154/67 94 01/24/18 08:34 01/24/18 08:34 01/24/18 08:34 01/24/18 08:34 01/24/18 08:34 General appearance: Present: cooperative, A&O X 3, pleasant, answers questions appropriately - Head Head exam: Present: atraumatic, normocephalic - Eye Eye exam: Present: PERRL, conjuntiva pink, sclera anicteric Pupils: Present: PERRL - Neck Neck exam general surgery: Present: supple, trachea midline. Absent: lymphadenopathy - Respiratory Respiratory exam: Present: CTAB. Absent: accessory muscle use, rales, rhonchi, wheezes - Cardiovascular Cardiovascular exam: Present: RRR, +S1, +S2. Absent: diastolic murmur, gallop, rubs, systolic murmur - GI/Abdominal GI/Abdominal exam: Present: normal bowel sounds, soft, no peritoneal signs. Absent: distended, tenderness - Extremities Exam Extremities exam: Present: warm, radial pulses palpable and symmetrical. Absent: calf tenderness, cyanotic, pedal edema - Incison Comments: Right lower extremity, small amount of singleness drainage. Very tender to touch surrounding area. - Neurological Exam Neurological exam: Present: CN II-XII intact, oriented X3, no focal deficits. Absent: pronater drift, facial droop, speech deficit - Skin Skin exam: Present: dry, intact Internal Medicine: Result - Labs CBC & Chem 7: 01/22/18 10:40 01/22/18 10:40 Consult Discharge Plan - Plan Referrals: Latoya Haro [Primary Care Provider] - Shiva Yarbrough [Non-Partnered Physician] - 01/30/18 10:00 am (2nd orthopaedic follow up apt ) Russell Starkey [Family Provider] -
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
[2018-01-24] MEDS: *HR* OxyCODONE ER (12 HR) 20 MG TABLET PO SCH (17:48)
[2018-01-24 17:52] LABS: Bilirubin,Urine Negative (Negative); Blood,Urine Negative (Negative); Clarity,Urine Clear (Clear); Color,Urine Yellow (Yellow); Glucose,Urine (UA) Normal (Normal); Ketones,Urine Negative (Negative); Leukocyte Esterase,Urine Large (Negative); Nitrite,Urine Negative (Negative); Protein,Urine Negative (Neg-Trace); Specific Gravity,Urine 1.025 (1.010-1.025); Urobilinogen,Urine Normal (Normal)
[2018-01-24 18:00] LABS: Bacteria,Urine Moderate per hpf (None-Few); Squamous Epithelial Cell,Urine Few per lpf (None-Few); WBC,Urine 50-100 per hpf (0-3)
[2018-01-24] MEDS: Progesterone Micronized 200 MG PO SCH (20:04)
[2018-01-24] MEDS: Latanoprost 2.5 ML BOTTLE BOTH EYES SCH (20:05)
[2018-01-25] MEDS: *HR* OxyCODONE Immed Rel 5 MG TABLET PO PRN ×2 (01:46→15:14)
[2018-01-25 11:54] LABS: Hematocrit 29.4 % (35.3-44.9); Hemoglobin 8.8 g/dL (11.5-15.4); Mean Corpuscular HGB Conc 29.9 g/dL (31.6-35.5); Mean Corpuscular Hemoglobin 29.8 pg (28.0-33.3); Mean Corpuscular Volume 99.7 fL (83.0-100.0); Platelet Count 358 K/mcL (140-400); Red Blood Count 2.95 M/mcL (3.82-4.97); Red Cell Distribution Width 15.5 % (11.5-14.5)
[2018-01-25 12:14] LABS: Potassium 3.8 mEq/L (3.5-5.1)
[2018-01-25] MEDS ORDERED: Sennosides/Docusate Sodium TABLET PO ONE (12:59)
[2018-01-25] MEDS ORDERED: Cholecalciferol (D-3) 1,000 UNIT TABLET PO ONE (12:59)
[2018-01-25] MEDS ORDERED: *HR* OxyCODONE Immed Rel 5 MG TABLET PO ONE (12:59)
[2018-01-25] MEDS ORDERED: Furosemide 20 MG TABLET PO ONE (12:59)
[2018-01-25] MEDS ORDERED: Verapamil ER (24 HR) 240 MG TABLET.ER PO ONE (12:59)
[2018-01-25] MEDS ORDERED: *HR* Enoxaparin 40 MG/0.4 ML SYRINGE SQ ONE (12:59)
[2018-01-25] MEDS ORDERED: *HR* OxyCODONE ER (12 HR) 20 MG TABLET PO ONE (12:59)
[2018-01-25] MEDS ORDERED: Doxycycline 100 MG CAPSULE PO ONE (12:59)
[2018-01-25] MEDS ORDERED: Lactobacillus 1 EACH CAP.SPRINK PO ONE (12:59)
[2018-01-25] MEDS ORDERED: Niacin (24 HR) 500 MG TAB.ER.24H PO ONE (12:59)
[2018-01-25] MEDS ORDERED: Multivit/Ca/Min/Fe/FA 1 TAB TABLET PO ONE (12:59)
--- NOTE | 2018-01-25 14:38 | Internal Med Progress Note ---
Date of Encounter: 01/25/18 Time of Encounter: 06:00 - Assessment and plan (1) Radial fracture Current Visit: Yes Status: Acute Assessment and plan: She continues to heal, as far as we know. Qualifiers: Encounter type: subsequent encounter Radius location: shaft Fracture type: closed Fracture morphology: unspecified fracture morphology Laterality: right Fracture healing: with routine healing Qualified Code(s): S52.301D - Unspecified fracture of shaft of right radius, subsequent encounter for closed fracture with routine healing (2) Tibial plateau fracture Current Visit: Yes Status: Acute Assessment and plan: This seems better and we will follow with attempts at therapy, today. If she does not improve, may be transferred for evaluation by orthopedics. Qualifiers: Encounter type: subsequent encounter Fracture type: closed Laterality: right Fracture healing: with routine healing Qualified Code(s): S82.141D - Displaced bicondylar fracture of right tibia, subsequent encounter for closed fracture with routine healing (3) Hypertension Current Visit: Yes Status: Acute Assessment and plan: We will continue to monitor. Qualifiers: Hypertension type: essential hypertension Qualified Code(s): I10 - Essential (primary) hypertension (4) Chronic kidney disease, stage III (moderate) Current Visit: Yes Status: Acute Assessment and plan: Clinically stable and apparently improving.. (5) Glaucoma Current Visit: Yes Status: Acute Assessment and plan: We will continue multiple drops as before. Qualifiers: Glaucoma type: open-angle Open angle glaucoma type: unspecified type Late rality: bilateral Glaucoma stage: stage unspecified Qualified Code(s): H40.10X0 - Unspecified open-angle glaucoma, stage unspecified (6) Macular degeneration Current Visit: Yes Status: Acute Qualifiers: Macular degeneration type: unspecified type Eye laterality: bilateral Qualified Code(s): H35.30 - Unspecified macular degeneration (7) Suspected sleep apnea Current Visit: Yes Status: Acute Assessment and plan: She will still need follow-up regarding this, as an outpatient. (8) Traumatic compression fracture of T8 thoracic vertebra Current Visit: Yes Status: Acute Assessment and plan: She seems to be tolerating well. Qualifiers: Encounter type: subsequent encounter Fracture healing: with routine healing Qualified Code(s): S22.060D - Wedge compression fracture of T7-T8 vertebra, subsequent encounter for fracture with routine healing (9) Urinary tract infection Current Visit: Yes Status: Acute Assessment and plan: Urine culture is pending as above. Qualifiers: Urinary tract infection type: site unspecified Qualified Code(s): N39.0 - Urinary tract infection, site not specified - Subjective Interval history: We are waiting on repeat urine culture. Patient has improved markedly with OxyContin. Discussed the use of the short- term. We will try therapy today. She feels a little bit more constipated and subsequently MiraLAX this morning. No urinary symptoms. Breathing well. Patient has no complaint of chest discomfort, dyspnea, orthopnea, palpitations, nausea or vomiting, constipation or diarrhea, other changes in bowel habits, difficulty with urination, rash or itching, or other new complaints, except as mentioned above. Review of systems is otherwise negative. I discussed management of her care with nursing staff. - Constitutional Vitals: Temp Pulse Resp BP Pulse Ox 98.2 F 70 18 148/60 94 01/24/18 19:32 01/25/18 07:00 01/25/18 07:00 01/25/18 07:00 01/25/18 07:00 Exam: Examination: (Except as mentioned above): General: In no apparent distress. Alert and oriented 3. Nondiaphoretic. Head: Atraumatic and normocephalic. Respiratory: No use of accessory muscles. Lungs are clear throughout. Normal airflow. Cardiovascular: Regular rate and rhythm without murmur appreciated. Abdomen: Bowel sounds are normal. No hepatosplenomegaly mass or tenderness appreciated. Obese and therefore difficult to palpate deeply. Extremities: No cyanosis clubbing or edema. She is cutter machine tender at the anterior tibia, proximal third. There is a dressing in place and this is not removed. I told patient and nursing that this is changed in the next little bit of time, I would like to see it. There is no cord or calf tenderness. Skin: Warm and non-diaphoretic with no new lesions noted. Internal Medicine: Result - Labs CBC & Chem 7: 01/25/18 05:30 01/25/18 05:30 Labs: Short CBC 01/25/18 Range/Units 05:30 WBC 10.0 (4.3-11.1) K/mcL Hgb 8.8 L (11.5-15.4) g/dL Hct 29.4 L (35.3-44.9) % Plt Count 358 (140-400) K/mcL BMP 01/25/18 05:30 Sodium 138 Potassium 3.8 Chloride 105 Carbon Dioxide 23 BUN 30 H Creatinine 1.33 H Glucose 124 H Calcium 10.0 Urine 01/24/18 Range/Units 17:45 Urine Color Yellow (Yellow) Urine Clarity Clear (Clear) Urine pH 6.0 (5.0-8.0) pH Units Ur Specific Mobile 1.025 (1.010-1.025) Urine Protein Negative (Neg-Trace) mg/dL Urine Glucose (UA) Normal (Normal) mg/dL Consult Discharge Plan - Plan Referrals: Latoya Haro [Primary Care Provider] - Shiva Yarbrough [Non-Partnered Physician] - 01/30/18 10:00 am (2nd orthopaedic follow up apt ) Russell Starkey [Family Provider] -
[2018-01-25] MEDS: Levofloxacin 750 MG/150 ML 750 MG/150 ML BAG IVPB SCH (18:30)
[2018-01-25] MEDS: *HR* OxyCODONE ER (12 HR) 20 MG TABLET PO SCH ×2 (18:30→19:47)
[2018-01-25] MEDS: *HR* Enoxaparin 40 MG/0.4 ML SYRINGE SQ SCH (19:40)
[2018-01-25] MEDS: Cholecalciferol (D-3) 1,000 UNIT TABLET PO SCH (19:42)
[2018-01-25] MEDS: Sennosides/Docusate Sodium TABLET PO SCH (19:43)
[2018-01-25] MEDS: Multivit/Ca/Min/Fe/FA 1 TAB TABLET PO SCH (19:43)
[2018-01-25] MEDS: ICAPS AREDS FORMULA PO SCH (19:44)
[2018-01-25] MEDS: Niacin (24 HR) 500 MG TAB.ER.24H PO SCH (19:44)
[2018-01-25] MEDS: DHEA PO SCH (19:44)
[2018-01-25] MEDS: Furosemide 20 MG TABLET PO SCH (19:45)
[2018-01-25] MEDS: Lactobacillus 1 EACH CAP.SPRINK PO SCH (19:45)
[2018-01-25] MEDS: Doxycycline 100 MG CAPSULE PO SCH ×2 (19:45→22:29)
[2018-01-25] MEDS: Verapamil ER (24 HR) 240 MG TABLET.ER PO SCH (19:46)
[2018-01-25] MEDS: NATURAL THYROID PO SCH (19:46)
[2018-01-25] MEDS: Progesterone Micronized 200 MG PO SCH (22:29)
[2018-01-25] MEDS: Latanoprost 2.5 ML BOTTLE BOTH EYES SCH (22:30)
[2018-01-26] MEDS: *HR* OxyCODONE Immed Rel 5 MG TABLET PO PRN ×4 (03:51→22:35)
[2018-01-26] MEDS: *HR* Enoxaparin 40 MG/0.4 ML SYRINGE SQ SCH (06:19)
[2018-01-26] MEDS: NATURAL THYROID PO SCH (06:20)
[2018-01-26] MEDS: *HR* OxyCODONE ER (12 HR) 20 MG TABLET PO SCH (06:20)
[2018-01-26] MEDS: Cholecalciferol (D-3) 1,000 UNIT TABLET PO SCH (08:39)
[2018-01-26] MEDS: Multivit/Ca/Min/Fe/FA 1 TAB TABLET PO SCH (08:39)
[2018-01-26] MEDS: Sennosides/Docusate Sodium TABLET PO SCH (08:39)
[2018-01-26] MEDS: Furosemide 20 MG TABLET PO SCH (08:39)
[2018-01-26] MEDS: Lactobacillus 1 EACH CAP.SPRINK PO SCH (08:43)
[2018-01-26] MEDS: Niacin (24 HR) 500 MG TAB.ER.24H PO SCH (08:43)
[2018-01-26] MEDS: Verapamil ER (24 HR) 240 MG TABLET.ER PO SCH (08:43)
[2018-01-26] MEDS: DHEA PO SCH (08:43)
[2018-01-26] MEDS: ICAPS AREDS FORMULA PO SCH (08:44)
--- NOTE | 2018-01-26 13:50 | Internal Med Progress Note ---
Date of Encounter: 01/26/18 Time of Encounter: 13:48 - Assessment and plan (1) Radial fracture Current Visit: Yes Status: Acute Assessment and plan: This seems to be stable and doing well. Qualifiers: Encounter type: subsequent encounter Radius location: shaft Fracture type: closed Fracture morphology: unspecified fracture morphology Laterality: right Fracture healing: with routine healing Qualified Code(s): S52.301D - Unspecified fracture of shaft of right radius, subsequent encounter for closed fracture with routine healing (2) Tibial plateau fracture Current Visit: Yes Status: Acute Assessment and plan: This seems better in the patient is now doing some therapies, out of bed and out of her room. I remain concerned that she has infection but current plan is to see orthopedist on Monday for follow-up. We will have lab work on Monday which will be in anticipation of that visit. We will continue Levaquin until then. She is also on doxycycline. Qualifiers: Encounter type: subsequent encounter Fracture type: closed Laterality: right Fracture healing: with routine healing Qualified Code(s): S82.141D - Displaced bicondylar fracture of right tibia, subsequent encounter for closed fracture with routine healing (3) Hypertension Current Visit: Yes Status: Acute Assessment and plan: Well-controlled and stable. Qualifiers: Hypertension type: essential hypertension Qualified Code(s): I10 - Essential (primary) hypertension (4) Chronic kidney disease, stage III (moderate) Current Visit: Yes Status: Acute Assessment and plan: Assessment stable. (5) Glaucoma Current Visit: Yes Status: Acute Qualifiers: Glaucoma type: open-angle Open angle glaucoma type: unspecified type Laterality: bilateral Glaucoma stage: stage unspecified Qualified Code(s): H40.10X0 - Unspecified open-angle glaucoma, stage unspecified (6) Macular degeneration Current Visit: Yes Status: Acute Qualifiers: Macular degeneration type: unspecified type Eye laterality: bilateral Qualified Code(s): H35.30 - Unspecified macular degeneration (7) Suspected sleep apnea Current Visit: Yes Status: Acute (8) Traumatic compression fracture of T8 thoracic vertebra Current Visit: Yes Status: Acute Assessment and plan: She is to wear her brace whenever she is up but does not complain of pain from this. Qualifiers: Encounter type: subsequent encounter Fracture healing: with routine healing Qualified Code(s): S22.060D - Wedge compression fracture of T7-T8 vertebra, subsequent encounter for fracture with routine healing (9) Urinary tract infection Current Visit: Yes Status: Acute Assessment and plan: She was diagnosed with recurrent UTI and is in isolation for ESBL. Repeat culture is pending. Qualifiers: Urinary tract infection type: site unspecified Qualified Code(s): N39.0 - Urinary tract infection, site not specified - Subjective Interval history: We are still waiting on repeat urine culture. Nursing notes that patient is more sleepy today and her pain is under good control. Discussed with patient and for this reason we will cut OxyContin to 10 mg twice a day. Patient has no complaint of chest discomfort, dyspnea, orthopnea, palpitations, nausea or vomiting, constipation or diarrhea, other changes in bowel habits, difficulty with urination, rash or itching, or other new complaints, except as mentioned above. Review of systems is otherwise negative. I discussed management of her care with nursing staff. - Constitutional Vitals: Temp Pulse Resp BP Pulse Ox 98.5 F 69 18 117/57 97 01/26/18 07:59 01/26/18 07:59 01/26/18 07:59 01/26/18 07:59 01/26/18 07:59 Exam: Examination: (Except as mentioned above): General: In no apparent distress. Alert and oriented 3. Nondiaphoretic. Head: Atraumatic and normocephalic. Respiratory: No use of accessory muscles. Lungs are clear throughout. Normal airflow. Cardiovascular: Regular rate and rhythm without murmur appreciated. Abdomen: Bowel sounds are normal. No hepatosplenomegaly mass or tenderness appreciated. Obese and therefore difficult to palpate deeply. Extremities: No cyanosis clubbing or edema. Right knee wound is undressed with nursing. She has serosanguineous drainage and has a yellow residual. The drainage is minimal and dressing has only about a tablespoon size of dried bloody drainage stained. She still has some effusion at the joint itself and there is more tenderness at the lateral low aspect of the wounds. No cord or calf tenderness on either side.. Skin: Warm and non-diaphoretic with no new lesions noted. Internal Medicine: Result - Labs CBC & Chem 7: 01/25/18 05:30 01/25/18 05:30 Consult Discharge Plan - Plan Referrals: Latoya Haro [Primary Care Provider] - Shiva Yarbrough [Non-Partnered Physician] - 01/30/18 10:00 am (2nd orthopaedic follow up apt ) Russell Starkey [Family Provider] -
[2018-01-26] MEDS: *HR* OxyCODONE ER (12 HR) 10 MG TABLET PO SCH (18:04)
[2018-01-26] MEDS: Latanoprost 2.5 ML BOTTLE BOTH EYES SCH (22:32)
[2018-01-26] MEDS: Progesterone Micronized 200 MG PO SCH (22:33)
[2018-01-27] MEDS: NATURAL THYROID PO SCH (06:22)
[2018-01-27] MEDS: *HR* Enoxaparin 40 MG/0.4 ML SYRINGE SQ SCH (06:22)
[2018-01-27] MEDS: *HR* OxyCODONE ER (12 HR) 10 MG TABLET PO SCH ×2 (06:23→16:51)
[2018-01-27] MEDS: Verapamil ER (24 HR) 240 MG TABLET.ER PO SCH (09:03)
[2018-01-27] MEDS: Furosemide 20 MG TABLET PO SCH (09:03)
[2018-01-27] MEDS: Niacin (24 HR) 500 MG TAB.ER.24H PO SCH (09:03)
[2018-01-27] MEDS: Lactobacillus 1 EACH CAP.SPRINK PO SCH (09:03)
[2018-01-27] MEDS: Multivit/Ca/Min/Fe/FA 1 TAB TABLET PO SCH (09:03)
[2018-01-27] MEDS: Cholecalciferol (D-3) 1,000 UNIT TABLET PO SCH (09:03)
[2018-01-27] MEDS: Sennosides/Docusate Sodium TABLET PO SCH (09:03)
[2018-01-27] MEDS: *HR* OxyCODONE Immed Rel 5 MG TABLET PO PRN ×3 (09:04→19:45)
[2018-01-27] MEDS: DHEA PO SCH (09:05)
[2018-01-27] MEDS: ICAPS AREDS FORMULA PO SCH (09:05)
--- NOTE | 2018-01-27 16:45 | Internal Med Progress Note ---
Date of Encounter: 01/27/18 Time of Encounter: 16:00 - Assessment and plan (1) Radial fracture Current Visit: Yes Status: Acute Assessment and plan: Continue current therapies. Qualifiers: Encounter type: subsequent encounter Radius location: shaft Fracture type: closed Fracture morphology: unspecified fracture morphology Laterality: right Fracture healing: with routine healing Qualified Code(s): S52.301D - Unspecified fracture of shaft of right radius, subsequent encounter for closed fracture with routine healing (2) Tibial plateau fracture Current Visit: Yes Status: Acute Assessment and plan: Continue current therapies. F/U with ortho on Monday. Labs on Monday as planned. Continue levofloxacin for now. Qualifiers: Encounter type: subsequent encounter Fracture type: closed Laterality: right Fracture healing: with routine healing Qualified Code(s): S82.141D - Displaced bicondylar fracture of right tibia, subsequent encounter for closed fracture with routine healing (3) Hypertension Current Visit: Yes Status: Acute Assessment and plan: Continue current regimen. Qualifiers: Hypertension type: essential hypertension Qualified Code(s): I10 - Essential (primary) hypertension (4) Chronic kidney disease, stage III (moderate) Current Visit: Yes Status: Acute Assessment and plan: Continue current regimen. (5) Traumatic compression fracture of T8 thoracic vertebra Current Visit: Yes Status: Acute Assessment and plan: Continue current therapies. Qualifiers: Encounter type: subsequent encounter Fracture healing: with routine healing Qualified Code(s): S22.060D - Wedge compression fracture of T7-T8 vertebra, subsequent encounter for fracture with routine healing (6) Urinary tract infection Current Visit: Yes Status: Acute Assessment and plan: ESBL isolated from 01/20/2018, with repeat urine culture on 01/24 negative to date. On levofloxacin. Qualifiers: Urinary tract infection type: site unspecified Qualified Code(s): N39.0 - Urinary tract infection, site not specified - Time Spent With Patient less than 15 minutes - Subjective Interval history: Doing "well" and moving better. No concern at this time. - Constitutional Vitals: Temp Pulse Resp BP Pulse Ox 97.7 F 72 16 130/55 95 01/27/18 07:27 01/27/18 07:27 01/27/18 07:27 01/27/18 07:27 01/27/18 07:27 General appearance: Present: cooperative, A&O X 3, pleasant, answers questions appropriately Exam: Gen: A&Ox3, NAD. HEENT: NCAT. Neck: No palpable lymphadenopathy or thyromegaly. CV: RRR, S1S2. No murmur. Lungs: CTAB. Abd: (+)BS. NDNT. Neuro: RLE weakness noted. Skin: No rash. Ext: No pitting edema. RLE in hinge brace. Internal Medicine: Result - Labs CBC & Chem 7: 01/25/18 05:30 01/25/18 05:30 Consult Discharge Plan - Plan Referrals: Latoya Haro [Primary Care Provider] - Shiva Yarbrough [Non-Partnered Physician] - 01/30/18 10:00 am (2nd orthopaedic follow up apt ) Russell Starkey [Family Provider] -
[2018-01-27] MEDS: Levofloxacin 750 MG/150 ML 750 MG/150 ML BAG IVPB SCH (16:50)
[2018-01-27] MEDS: Latanoprost 2.5 ML BOTTLE BOTH EYES SCH (19:47)
[2018-01-27] MEDS: Progesterone Micronized 200 MG PO SCH (19:49)
[2018-01-28] MEDS: *HR* OxyCODONE Immed Rel 5 MG TABLET PO PRN ×4 (02:20→20:06)
[2018-01-28] MEDS: *HR* Enoxaparin 40 MG/0.4 ML SYRINGE SQ SCH (05:45)
[2018-01-28] MEDS: *HR* OxyCODONE ER (12 HR) 10 MG TABLET PO SCH ×2 (05:45→16:40)
[2018-01-28] MEDS: NATURAL THYROID PO SCH (05:46)
[2018-01-28] MEDS: Lactobacillus 1 EACH CAP.SPRINK PO SCH (08:57)
[2018-01-28] MEDS: Multivit/Ca/Min/Fe/FA 1 TAB TABLET PO SCH (08:57)
[2018-01-28] MEDS: Sennosides/Docusate Sodium TABLET PO SCH (08:57)
[2018-01-28] MEDS: DHEA PO SCH (08:57)
[2018-01-28] MEDS: Verapamil ER (24 HR) 240 MG TABLET.ER PO SCH (08:57)
[2018-01-28] MEDS: Niacin (24 HR) 500 MG TAB.ER.24H PO SCH (08:57)
[2018-01-28] MEDS: ICAPS AREDS FORMULA PO SCH (08:57)
[2018-01-28] MEDS: Cholecalciferol (D-3) 1,000 UNIT TABLET PO SCH (08:57)
[2018-01-28] MEDS: Furosemide 20 MG TABLET PO SCH (08:57)
--- NOTE | 2018-01-28 14:29 | Internal Med Progress Note ---
Date of Encounter: 01/28/18 Time of Encounter: 14:00 - Assessment and plan (1) Radial fracture Current Visit: Yes Status: Acute Assessment and plan: Continue current therapies. Qualifiers: Encounter type: subsequent encounter Radius location: shaft Fracture type: closed Fracture morphology: unspecified fracture morphology Laterality: right Fracture healing: with routine healing Qualified Code(s): S52.301D - Unspecified fracture of shaft of right radius, subsequent encounter for closed fracture with routine healing (2) Tibial plateau fracture Current Visit: Yes Status: Acute Assessment and plan: Continue current therapies. F/U with ortho on Monday. Labs on Monday as planned. Continue levofloxacin for now. Qualifiers: Encounter type: subsequent encounter Fracture type: closed Laterality: right Fracture healing: with routine healing Qualified Code(s): S82.141D - Displaced bicondylar fracture of right tibia, subsequent encounter for closed fracture with routine healing (3) Hypertension Current Visit: Yes Status: Acute Assessment and plan: Continue current regimen. Qualifiers: Hypertension type: essential hypertension Qualified Code(s): I10 - Essential (primary) hypertension (4) Chronic kidney disease, stage III (moderate) Current Visit: Yes Status: Acute Assessment and plan: Continue current regimen. (5) Traumatic compression fracture of T8 thoracic vertebra Current Visit: Yes Status: Acute Assessment and plan: Continue current therapies. Qualifiers: Encounter type: subsequent encounter Fracture healing: with routine healing Qualified Code(s): S22.060D - Wedge compression fracture of T7-T8 vertebra, subsequent encounter for fracture with routine healing (6) Urinary tract infection Current Visit: Yes Status: Acute Assessment and plan: ESBL isolated from 01/20/2018, with repeat urine culture on 01/24 negative to date. On levofloxacin. Qualifiers: Urinary tract infection type: site unspecified Qualified Code(s): N39.0 - Urinary tract infection, site not specified - Time Spent With Patient less than 15 minutes - Subjective Interval history: Doing "well" and working with therapists. No concern at this time. - Constitutional Vitals: Temp Pulse Resp BP Pulse Ox 98.8 F 77 16 148/57 95 01/28/18 08:35 01/28/18 08:35 01/28/18 08:35 01/28/18 08:35 01/28/18 08:35 General appearance: Present: cooperative, A&O X 3, pleasant, answers questions appropriately Exam: Gen: A&Ox3, NAD. HEENT: NCAT. Neck: No palpable lymphadenopathy or thyromegaly. CV: RRR, S1S2. No murmur. Capillary refill < 2 seconds. Lungs: CTAB. Abd: (+)BS. NDNT. Neuro: RLE weakness noted. Skin: No rash. Ext: No pitting edema. RLE in hinge brace. Internal Medicine: Result - Labs CBC & Chem 7: 01/25/18 05:30 01/25/18 05:30 Consult Discharge Plan - Plan Referrals: Latoya Haro [Primary Care Provider] - Shiva Yarbrough [Non-Partnered Physician] - 01/30/18 10:00 am (2nd orthopaedic follow up apt ) Russell Starkey [Family Provider] -
[2018-01-28] MEDS: Progesterone Micronized 200 MG PO SCH (20:08)
[2018-01-28] MEDS: Latanoprost 2.5 ML BOTTLE BOTH EYES SCH (20:09)
[2018-01-29] MEDS: *HR* OxyCODONE Immed Rel 5 MG TABLET PO PRN ×5 (03:33→21:50)
[2018-01-29] MEDS: *HR* OxyCODONE ER (12 HR) 10 MG TABLET PO SCH ×2 (05:40→18:07)
[2018-01-29] MEDS: NATURAL THYROID PO SCH (05:40)
[2018-01-29] MEDS: *HR* Enoxaparin 40 MG/0.4 ML SYRINGE SQ SCH (05:40)
[2018-01-29 05:56] LABS: Basophils % 0.3 %; Eosinophils # 0.1 K/mcL (0.0-0.6); Eosinophils % 1.3 %; Hematocrit 29.3 % (35.3-44.9); Hemoglobin 9.1 g/dL (11.5-15.4); Immature Granulocytes % 0.5 % (0-4); Lymphocytes # 1.2 K/mcL (0.6-4.6); Mean Corpuscular HGB Conc 31.1 g/dL (31.6-35.5); Mean Corpuscular Hemoglobin 29.5 pg (28.0-33.3); Mean Corpuscular Volume 95.1 fL (83.0-100.0); Mean Platelet Volume 8.5 fL (9.4-12.4); Monocytes # 0.8 K/mcL (0.0-1.3); Monocytes % 8.1 %; Neutrophils # 7.2 K/mcL (1.6-8.9); Platelet Count 302 K/mcL (140-400); Red Blood Count 3.08 M/mcL (3.82-4.97); Red Cell Distribution Width 15.7 % (11.5-14.5); Segmented Neutrophils % 76.8 %
[2018-01-29 06:14] LABS: Calcium 9.9 mg/dL (8.6-10.3); Potassium 3.9 mEq/L (3.5-5.1)
[2018-01-29] MEDS: Sennosides/Docusate Sodium TABLET PO SCH (08:49)
[2018-01-29] MEDS: Cholecalciferol (D-3) 1,000 UNIT TABLET PO SCH (08:49)
[2018-01-29] MEDS: Verapamil ER (24 HR) 240 MG TABLET.ER PO SCH (08:49)
[2018-01-29] MEDS: Furosemide 20 MG TABLET PO SCH (08:49)
[2018-01-29] MEDS: Lactobacillus 1 EACH CAP.SPRINK PO SCH (08:50)
[2018-01-29] MEDS: Multivit/Ca/Min/Fe/FA 1 TAB TABLET PO SCH (08:57)
[2018-01-29] MEDS: ICAPS AREDS FORMULA PO SCH (08:57)
[2018-01-29] MEDS: Niacin (24 HR) 500 MG TAB.ER.24H PO SCH (08:58)
[2018-01-29] MEDS: DHEA PO SCH (08:58)
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
[2018-01-29] MEDS: Levofloxacin 750 MG/150 ML 750 MG/150 ML BAG IVPB SCH (18:08)
[2018-01-29] MEDS: Latanoprost 2.5 ML BOTTLE BOTH EYES SCH (21:49)
[2018-01-29] MEDS: Progesterone Micronized 200 MG PO SCH (21:49)
[2018-01-30] MEDS: NATURAL THYROID PO SCH (05:44)
[2018-01-30] MEDS: *HR* Enoxaparin 40 MG/0.4 ML SYRINGE SQ SCH (05:44)
[2018-01-30] MEDS: *HR* OxyCODONE ER (12 HR) 10 MG TABLET PO SCH (05:45)
[2018-01-30 07:45] VITALS: BP 129/58
[2018-01-30] MEDS: Verapamil ER (24 HR) 240 MG TABLET.ER PO SCH (07:51)
[2018-01-30] MEDS: Cholecalciferol (D-3) 1,000 UNIT TABLET PO SCH (07:51)
[2018-01-30] MEDS: *HR* OxyCODONE Immed Rel 5 MG TABLET PO PRN (07:53)
[2018-01-30] MEDS: Lactobacillus 1 EACH CAP.SPRINK PO SCH (07:53)
[2018-01-30] MEDS: Multivit/Ca/Min/Fe/FA 1 TAB TABLET PO SCH (07:54)
[2018-01-30] MEDS: Niacin (24 HR) 500 MG TAB.ER.24H PO SCH (07:54)
[2018-01-30] MEDS: DHEA PO SCH (07:55)
[2018-01-30] MEDS: ICAPS AREDS FORMULA PO SCH (07:57)
--- NOTE | 2018-02-26 11:01 | Discharge Summary ---
Addendum entered and electronically signed by Bret Saeed MD 02/26/18 11:43: Patient was not seen by me as I was off on this date. However, was sent for orthopedic follow-up and they kept her because of infection. She underwent hardware removal and spacer placement, antibiotics were adjusted because of this. Original Note: Date of Encounter: 01/30/18 Time of Encounter: 10:59 - Discharge Diagnosis (1) Radial fracture Priority: Primary Status: Acute Comments: Patient admitted to [facility] under care of Dr. Yarbrough Qualifiers: Encounter type: subsequent encounter Radius location: shaft Fracture type: closed Fracture morphology: unspecified fracture morphology Laterality: right Fracture healing: with routine healing Qualified Code(s): S52.301D - Unspecified fracture of shaft of right radius, subsequent encounter for closed fracture with routine healing (2) Tibial plateau fracture Priority: Primary Status: Acute Comments: Follow-up with Dr. Yarbrough. Patient admitted to [facility] under care of Dr. Yarbrough Qualifiers: Encounter type: subsequent encounter Fracture type: closed Laterality: right Fracture healing: with routine healing Qualified Code(s): S82.141D - Displaced bicondylar fracture of right tibia, subsequent encounter for closed fracture with routine healing (3) Hypertension Priority: Secondary Status: Chronic Comments: Controlled with current medication monitor blood pressure Qualifiers: Hypertension type: essential hypertension Qualified Code(s): I10 - Essential (primary) hypertension (4) Chronic kidney disease, stage III (moderate) Priority: Secondary Status: Chronic Comments: continue to monitor labs. avoid nephrotixoc agents. (5) Rib fractures Priority: Primary Status: Acute Comments: pain controlled. monitor. Qualifiers: Encounter type: subsequent encounter Rib fracture type: multiple ribs Fracture type: closed Laterality: bilateral Fracture healing: with routine healing Qualified Code(s): S22.43XD - Multiple fractures of ribs, bilateral, subsequent encounter for fracture with routine healing (6) Traumatic compression fracture of T8 thoracic vertebra Priority: Primary Status: Acute Comments: Follow up with neuro scheduled. Continue TLSO brace. Qualifiers: Encounter type: subsequent encounter Fracture healing: with routine healing Qualified Code(s): S22.060D - Wedge compression fracture of T7-T8 vertebra, subsequent encounter for fracture with routine healing (7) Urinary tract infection Priority: Secondary Status: Acute Comments: Continue antibiotics. Improving. Qualifiers: Urinary tract infection type: site unspecified Qualified Code(s): N39.0 - Urinary tract infection, site not specified Hospital course: Ms. Mendoza is a 72 year old female discharged from [facility] after going to appointment with Dr. Yarbrough. Patient is now admitted at [facility] under the care of Dr. Yarbrough Discharge discussed with: patient, family, nurse, social work - Time Spent with Patient Total time spent providing and/or coordinating discharge services: Less than 30 minutes - Discharge Medications Home Medications: Acetaminophen [Tylenol] 975 mg PO Q8HR PRN 01/18/18 [History] Acidophilus Probiotic 1 cap PO DAILY 01/18/18 [History] Allopurinol [Zyloprim 100 MG] 100 mg PO DAILY 01/18/18 [History] Brimonidine 0.2% 0.2 % BOTH EYES BID 01/18/18 [History] Carvedilol [Coreg] 12.5 mg PO Q12H 01/18/18 [History] Cholecalciferol (D-3) 2,000 units PO DAILY 01/18/18 [History] Furosemide [Lasix] 40 mg PO DAILY 01/18/18 [History] Icaps Areds Formula Dr Tablet 1 tab PO DAILY 01/18/18 [History] Latanoprost 0.005% Eye Drop 0.5 % BOTH EYES HS 01/18/18 [History] Lidocaine Patch [Lidoderm 5% patch] 5 % TP DAILY 01/18/18 [History] Montelukast [Singulair] 10 mg PO HS 01/18/18 [History] Multivit,Calc,Mins/Iron/Folic 1 tab PO DAILY 01/18/18 [History] Niacin 500 mg Capsule 500 mg PO DAILY 01/18/18 [History] Ondansetron ODT [Zofran ODT] 4 mg SL Q6HR PRN 01/18/18 [History] Oxycodone HCl [Roxybond] 10 mg PO Q6HR PRN 01/18/18 [History] Polyethylene Glycol 3350 [MiraLAX] 17 gm PO DAILY 01/18/18 [History] Progesterone Micronized 200 mg PO HS 01/18/18 [History] Senna-Docusate Sodium Tablet 8.6 mg PO BID 01/18/18 [History] Timolol Maleate 0.5% 0.5 % BOTH EYES BID 01/18/18 [History] Verapamil ER (24 HR) 240 mg PO DAILY 01/18/18 [History] Albuterol Sulfate [Albuterol Inhaler] 90 mcg IH Q6HR PRN 02/07/18 [History] Cefepime HCl/D5w [Cefepime-Dextrose 2 gm/50 ml] 2 g IV BID 02/07/18 [History] Docusate [Colace] 100 mg PO DAILY 02/07/18 [History] Enoxaparin [Lovenox] 30 mg SQ Q12HR 02/07/18 [History] Losartan Potassium [Cozaar] 50 mg PO DAILY 02/07/18 [History] Methocarbamol [Robaxin-750] 750 mg PO Q6HR PRN 02/07/18 [History] Allergies/Adverse Reactions: Allergy/AdvReac Type Severity Reaction Status Date / Time atorvastatin [From Lipitor] Allergy Cramping Verified 01/18/18 14:46 of the Muscles Cefaclor [From Ceclor] Allergy Rash Verified 01/18/18 14:46 NSAIDS (Non-Steroidal Allergy Itching Verified 01/18/18 14:46 Anti-Inflamma Penicillins [PCN] Allergy Rash Verified 01/18/18 14:46 prednisone Allergy Nausea Verified 01/18/18 14:46 Sulfa (Sulfonamide Allergy Rash Verified 01/18/18 14:46 Antibiotics) Date of admission: 01/18/18 13:02 Primary care physician: Latoya Haro Consults: 01/18/18 14:56 Consult to Occupational Therapy [CONS] Routine Comment: eval and treat Reason for Consult: multiple fx Does patient have active BEDREST order?: No Is patient medically & hemodynamically stable?: Yes Patient assessed for mobility or mobilized this visit?: Yes Consult to Physical Therapy [CONS] Routine Comment: eval and treat Reason for Consult: multiple Fx Does patient have active BEDREST order?: No Is patient medically & hemodynamically stable?: Yes Patient assessed for mobility or mobilized this visit?: Yes Consult to Recreational Therapy [CONS] Routine Comment: Consult to [employer] [CONS] Routine Reason for SW Consult: discharge planning 01/18/18 15:01 Consult to Physical Medicine/Rehab [CONS] Routine Reason for Consult: Please evaluate and manage therapies' guidelines and recommend pathway to reconditioning. Call Completed: Yes 01/22/18 16:06 Consult to Psychology [CONS] Routine Consulting Provider: Karuna Ott Reason for Consult: Possible depression; adjustment disorder Call Completed: No Discharging clinician: Bret Saeed Anticipated date of discharge: 01/30/18 - Constitutional Vitals: Temp Pulse Resp BP Pulse Ox 98.0 F 65 17 129/58 92 01/30/18 07:44 01/30/18 07:44 01/30/18 07:44 01/30/18 07:44 01/30/18 07:44 General appearance: Present: cooperative, A&O X 3, pleasant, answers questions appropriately Exam: Patient was not seen or evaluated today. Was sent to appointment earlier this morning to follow up with ortho. - Head Head exam: Present: atraumatic, normocephalic - Eye Eye exam: Present: PERRL, conjuntiva pink, sclera anicteric Pupils: Present: PERRL - Neck Neck exam general surgery: Present: supple, trachea midline. Absent: lymphadenopathy - Respiratory Respiratory exam: Present: CTAB. Absent: accessory muscle use, rales, rhonchi, wheezes - Cardiovascular Cardiovascular exam: Present: RRR, +S1, +S2. Absent: diastolic murmur, gallop, rubs, systolic murmur - GI/Abdominal GI/Abdominal exam: Present: normal bowel sounds, soft, no peritoneal signs. Absent: distended, tenderness - Extremities Exam Extremities exam: Present: warm, radial pulses palpable and symmetrical. Absent: calf tenderness, cyanotic, pedal edema - Neurological Exam Neurological exam: Present: CN II-XII intact, oriented X3, no focal deficits. Absent: pronater drift, facial droop, speech deficit - Skin Skin exam: Present: dry, intact - Patient Status Disposition: Transfer Short-Term Hosp Condition: Fair Functional capacity at discharge: wheelchair bound Overall status at discharge: patient is not back to baseline - Discharge Instructions Follow Up With: Latoya Haro [Primary Care Provider] - Shiva Yarbrough [Non-Partnered Physician] - 01/30/18 10:00 am (2nd orthopaedic follow up apt ) Russell Starkey [Family Provider] - - Diet and Activity Activity: as per physical therapy Diet: advance to your usual diet
== END 2018-01-30 13:00 | disposition short-term general hospital (02) | DRG 560 ==
LOC: INPGRE 13:02

== ENCOUNTER 2018-02-07 11:55 | Inpatient (IN) ==
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
[2018-02-07] MEDS: *HR* OxyCODONE Immed Rel 5 MG TABLET PO PRN (20:05)
[2018-02-07] MEDS: *HR* Enoxaparin 30 MG/0.3 ML SYRINGE SQ SCH (20:06)
[2018-02-07] MEDS: PROGESTERONE MICRONIZED 200 MG PO SCH (20:13)
[2018-02-07] MEDS ORDERED: DEXTROSE IV SCH (21:00)
[2018-02-07] MEDS ORDERED: CEFEPIME HCL IV SCH (21:00)
[2018-02-07] MEDS ORDERED: [UNRECOGNIZED DRUG - OTHER] IV SCH (21:00)
[2018-02-07] MEDS: Latanoprost 2.5 ML BOTTLE BOTH EYES SCH (22:28)
[2018-02-08] MEDS ORDERED: Lisinopril 20 MG TABLET PO STA (01:03)
[2018-02-08] MEDS: *HR* OxyCODONE Immed Rel 5 MG TABLET PO PRN ×4 (03:33→22:10)
[2018-02-08] MEDS: *HR* Enoxaparin 30 MG/0.3 ML SYRINGE SQ SCH ×2 (05:33→17:06)
[2018-02-08 06:01] LABS: Basophils % 0.4 %; Eosinophils # 0.1 K/mcL (0.0-0.6); Eosinophils % 2.5 %; Hematocrit 28.9 % (35.3-44.9); Hemoglobin 8.9 g/dL (11.5-15.4); Immature Granulocytes % 0.2 % (0-4); Lymphocytes % 17.5 %; Mean Corpuscular HGB Conc 30.8 g/dL (31.6-35.5); Mean Corpuscular Volume 94.1 fL (83.0-100.0); Mean Platelet Volume 9.9 fL (9.4-12.4); Monocytes # 0.5 K/mcL (0.0-1.3); Platelet Count 166 K/mcL (140-400); Red Blood Count 3.07 M/mcL (3.82-4.97); Red Cell Distribution Width 15.4 % (11.5-14.5); Segmented Neutrophils % 70.4 %
[2018-02-08 06:20] LABS: Alanine Aminotransferase 9 Units/L (7-52); Albumin 2.4 g/dL (3.5-5.7); Albumin/Globulin Ratio 0.9 (1.1-2.2); Alkaline Phosphatase 93 Units/L (34-104); Aspartate Amino Transferase 17 Units/L (13-39); BUN/Creatinine Ratio 13 (6-26); Bilirubin,Total 0.4 mg/dL (0.3-1.0); Blood Urea Nitrogen 11 mg/dL (8-23); Calcium 8.9 mg/dL (8.6-10.3); Carbon Dioxide 24 mEq/L (23-29); Chloride 107 mEq/L (98-107); Globulin 2.6 g/dL (2.4-3.5); Glucose 109 mg/dL (70-105); Magnesium 1.6 mg/dL (1.6-2.6); Osmolality,Calculated 288 (280-300); Potassium 3.5 mEq/L (3.5-5.1); Sodium 139 mEq/L (136-145); eGFR For Non-African Americans > 60 (> 60)
[2018-02-08] MEDS ORDERED: Niacin (24 HR) 500 MG TAB.ER.24H PO SCH (09:00)
[2018-02-08] MEDS: Cefepime HCl 2,000 MG in Water for inj. (sterile) 20 ML 20 ML IVP SCH (09:27)
[2018-02-08] MEDS: Furosemide 20 MG TABLET PO SCH (09:28)
[2018-02-08] MEDS: Multivit/Ca/Min/Fe/FA 1 TAB TABLET PO SCH (09:29)
[2018-02-08] MEDS: Lactobacillus 1 EACH CAP.SPRINK PO SCH (09:29)
[2018-02-08] MEDS: Verapamil ER (24 HR) 240 MG TABLET.ER PO SCH (09:29)
[2018-02-08] MEDS: ICAPS AREDS FORMULA PO SCH (09:42)
--- NOTE | 2018-02-08 13:35 | Internal Med Progress Note ---
Addendum entered and electronically signed by Brittanie South 02/11/18 15:20: For this encounter, I have reviewed the ICE DELIVERY DRIVER or PA documentation, treatment plan, and medical decision making; and I have had face to face time with this patient. Original Note: Date of Encounter: 02/08/18 Time of Encounter: 13:33 - Assessment and plan (1) Tibial plateau fracture Current Visit: Yes Status: Acute Assessment and plan: No acute issues. Patient continues with mobilizer brace in place to right leg. Vernon wrap dressing to the entire length leg remains dry and intact. Patient continues on cefepime IV antibiotics due to her infected wound. Antibiotics being managed per infectious disease. Patient remains afebrile overnight. Physical therapy evaluation pending and will continue with current plan of care Qualifiers: Encounter type: subsequent encounter Fracture type: closed Laterality: right Fracture healing: with routine healing Qualified Code(s): S82.141D - Displaced bicondylar fracture of right tibia, subsequent encounter for closed fracture with routine healing (2) Radial fracture Current Visit: Yes Status: Acute Assessment and plan: No acute issues. Patient continues with immobilizer brace to right forearm and wrist. Distal CV normal. We will continue with current plan of care Qualifiers: Encounter type: subsequent encounter Radius location: shaft Fracture type: closed Fracture morphology: unspecified fracture morphology Laterality: right Fracture healing: with routine healing Qualified Code(s): S52.301D - Unspecified fracture of shaft of right radius, subsequent encounter for closed fracture with routine healing (3) Hypertension Current Visit: Yes Status: Chronic Assessment and plan: Vital signs are stable. We will continue with current medications. Qualifiers: Hypertension type: essential hypertension Qualified Code(s): I10 - Essential (primary) hypertension (4) Chronic kidney disease, stage III (moderate) Current Visit: Yes Status: Chronic Assessment and plan: No acute issues. Patient's last creatinine was 0.82. Continue with current medications. (5) Rib fractures Current Visit: Yes Status: Acute Assessment and plan: No acute issues. Patient with history of multiple rib fractures. Lungs are clear with no rales or crepitus noted. Qualifiers: Encounter type: subsequent encounter Rib fracture type: multiple ribs Fracture type: closed Laterality: bilateral Fracture healing: with routine healing Qualified Code(s): S22.43XD - Multiple fractures of ribs, bilateral, subsequent encounter for fracture with routine healing (6) Traumatic compression fracture of T8 thoracic vertebra Current Visit: Yes Status: Acute Assessment and plan: No acute issues. Patient continues use TLSO brace when out of bed. No acute neurological deficits noted on exam. We will continue with physical therapy. Qualifiers: Encounter type: subsequent encounter Fracture healing: with routine healing Qualified Code(s): S22.060D - Wedge compression fracture of T7-T8 vertebra, subsequent encounter for fracture with routine healing - Time Spent With Patient less than 15 minutes - Subjective Interval history: Patient appears relaxed and currently denies any discomforts or shortness of breath. Patient with physical therapy evaluation pending. Patient does state concerns about timing of receiving her pain medications incoordination with physical therapy. - Constitutional Vitals: Temp Pulse Resp BP Pulse Ox 97.3 F L 56 17 100/51 91 02/08/18 11:00 02/08/18 11:00 02/08/18 11:00 02/08/18 11:00 02/08/18 11:00 General appearance: Present: A&O X 3, pleasant - Head Head exam: Present: atraumatic, normocephalic - Eye Eye exam: Present: PERRL, conjuntiva pink, sclera anicteric Pupils: Present: PERRL - Neck Neck exam general surgery: Present: supple, trachea midline. Absent: lymphadenopathy - Respiratory Respiratory exam: Present: CTAB. Absent: accessory muscle use, rales, rhonchi, wheezes - Cardiovascular Cardiovascular exam: Present: RRR, +S1, +S2. Absent: diastolic murmur, gallop, rubs, systolic murmur - GI/Abdominal GI/Abdominal exam: Present: normal bowel sounds, soft, no peritoneal signs. Absent: distended, tenderness - Extremities Exam Extremities exam: Present: normal capillary refill, warm, radial pulses palpable and symmetrical. Absent: calf tenderness, cyanotic, pedal edema Additional comments: Patient has a full-length immobilizer to the right leg with a Vernon wrap dressing to the entire right leg area dressing is dry and intact. Distal CV checks shows normal. Patient also has a immobilizer brace to her right forearm and wrist. Has a TLSO brace that she uses when out of bed due to her vertebral fracture - Neurological Exam Neurological exam: Present: CN II-XII intact, oriented X3, no focal deficits. Absent: pronater drift, facial droop, speech deficit - Skin Skin exam: Present: dry, intact Internal Medicine: Result - Labs CBC & Chem 7: 02/08/18 05:30 02/08/18 05:30 Labs: Short CBC 02/08/18 Range/Units 05:30 WBC 5.7 (4.3-11.1) K/mcL Hgb 8.9 L (11.5-15.4) g/dL Hct 28.9 L (35.3-44.9) % Plt Count 166 (140-400) K/mcL Neutrophils # 4.0 (1.6-8.9) K/mcL BMP 02/08/18 05:30 Sodium 139 Potassium 3.5 Chloride 107 Carbon Dioxide 24 BUN 11 Creatinine 0.82 Glucose 109 H Calcium 8.9 Liver Function 02/08/18 Range/Units 05:30 Total Bilirubin 0.4 (0.3-1.0) mg/dL AST 17 (13-39) Units/L ALT 9 (7-52) Units/L Alkaline Phosphatase 93 (34-104) Units/L Albumin 2.4 L (3.5-5.7) g/dL Consult Discharge Plan - Plan Referrals: NONE,PCP [Primary Care Provider] -
[2018-02-08] MEDS: PROGESTERONE MICRONIZED 200 MG PO SCH (22:09)
[2018-02-08] MEDS: Latanoprost 2.5 ML BOTTLE BOTH EYES SCH (22:10)
[2018-02-09] MEDS: *HR* OxyCODONE Immed Rel 5 MG TABLET PO PRN ×3 (06:00→21:01)
[2018-02-09] MEDS: NATURE THROID 97.5 MG PO SCH (06:00)
[2018-02-09] MEDS: *HR* Enoxaparin 30 MG/0.3 ML SYRINGE SQ SCH ×2 (06:00→17:45)
[2018-02-09] MEDS: ICAPS AREDS FORMULA PO SCH ×2 (08:30→08:46)
[2018-02-09] MEDS: Furosemide 20 MG TABLET PO SCH (08:42)
[2018-02-09] MEDS: Cefepime HCl 2,000 MG in Water for inj. (sterile) 20 ML 20 ML IVP SCH ×2 (08:43→21:00)
[2018-02-09] MEDS: Verapamil ER (24 HR) 240 MG TABLET.ER PO SCH (08:43)
[2018-02-09] MEDS: Multivit/Ca/Min/Fe/FA 1 TAB TABLET PO SCH (08:43)
[2018-02-09] MEDS: Lactobacillus 1 EACH CAP.SPRINK PO SCH (08:43)
[2018-02-09] MEDS: NIACIN 500 MG PO SCH (08:44)
--- NOTE | 2018-02-09 12:07 | Internal Med Progress Note ---
Addendum entered and electronically signed by Brittanie South 02/11/18 15:20: For this encounter, I have reviewed the VOLUNTEER SERVICES SPECIALIST or PA documentation, treatment plan, and medical decision making; and I have had face to face time with this patient. Original Note: Date of Encounter: 02/09/18 Time of Encounter: 12:05 - Assessment and plan (1) Tibial plateau fracture Current Visit: Yes Status: Acute Assessment and plan: No acute issues. Patient continues with mobilizer brace in place to right leg. Vernon wrap dressing to the entire length leg remains dry and intact. Patient continues on cefepime IV antibiotics due to her infected wound. Antibiotics being managed per infectious disease. Patient remains afebrile overnight. Patient states that physical therapy has been progressing well. Patient states that her pain has been well-controlled with current medications. Qualifiers: Encounter type: subsequent encounter Fracture type: closed Laterality: right Fracture healing: with routine healing Qualified Code(s): S82.141D - Displaced bicondylar fracture of right tibia, subsequent encounter for closed fracture with routine healing (2) Radial fracture Current Visit: Yes Status: Acute Assessment and plan: No acute issues. Patient continues with immobilizer brace to right forearm and wrist. Distal CV normal. We will continue with current plan of care Qualifiers: Encounter type: subsequent encounter Radius location: shaft Fracture type: closed Fracture morphology: unspecified fracture morphology Laterality: right Fracture healing: with routine healing Qualified Code(s): S52.301D - Unspecified fracture of shaft of right radius, subsequent encounter for closed fracture with routine healing (3) Hypertension Current Visit: Yes Status: Chronic Assessment and plan: Vital signs are stable. We will continue with current medications. Qualifiers: Hypertension type: essential hypertension Qualified Code(s): I10 - Essential (primary) hypertension (4) Chronic kidney disease, stage III (moderate) Current Visit: Yes Status: Chronic Assessment and plan: No acute issues. Patient's last creatinine was 0.82. Continue with current medications. We will continue with serial labs (5) Rib fractures Current Visit: Yes Status: Acute Assessment and plan: No acute issues. Patient with history of multiple rib fractures. Lungs are clear with no rales or crepitus noted. Qualifiers: Encounter type: subsequent encounter Rib fracture type: multiple ribs Fracture type: closed Laterality: bilateral Fracture healing: with routine healing Qualified Code(s): S22.43XD - Multiple fractures of ribs, bilateral, subsequent encounter for fracture with routine healing (6) Traumatic compression fracture of T8 thoracic vertebra Current Visit: Yes Status: Acute Assessment and plan: No acute issues. Patient continues use TLSO brace when out of bed. No acute neurological deficits noted on exam. We will continue with physical therapy. Qualifiers: Encounter type: subsequent encounter Fracture healing: with routine healing Qualified Code(s): S22.060D - Wedge compression fracture of T7-T8 vertebra, subsequent encounter for fracture with routine healing - Time Spent With Patient less than 15 minutes - Subjective Interval history: Patient appears relaxed and currently denies any discomforts or shortness of breath. Patient states that physical therapy has been progressing well. Patient states that her pain has been currently well tolerated with current medications. - Constitutional Vitals: Temp Pulse Resp BP Pulse Ox 98.2 F 59 16 130/51 92 02/09/18 07:58 02/09/18 07:58 02/09/18 07:58 02/09/18 07:58 02/09/18 07:58 General appearance: Present: A&O X 3, pleasant - Head Head exam: Present: atraumatic, normocephalic - Eye Eye exam: Present: PERRL, conjuntiva pink, sclera anicteric Pupils: Present: PERRL - Neck Neck exam general surgery: Present: supple, trachea midline. Absent: lymphadenopathy - Respiratory Respiratory exam: Present: CTAB. Absent: accessory muscle use, rales, rhonchi, wheezes - Cardiovascular Cardiovascular exam: Present: RRR, +S1, +S2. Absent: diastolic murmur, gallop, rubs, systolic murmur - GI/Abdominal GI/Abdominal exam: Present: normal bowel sounds, soft, no peritoneal signs. Abs ent: distended, tenderness - Extremities Exam Extremities exam: Present: warm, radial pulses palpable and symmetrical. Absent: calf tenderness, cyanotic, pedal edema Additional comments: Right leg with a full-length Vernon wrap that is dry and intact and currently has a full-length immobilizer in place. Distal CV checks are normal. Right forearm and wrist has a immobilizer in place. Patient has a TLSO brace that she wears when up out of bed mobilizing due to her thoracic vertebrae fracture. No acute neurological deficits noted on exam - Neurological Exam Neurological exam: Present: CN II-XII intact, oriented X3, no focal deficits. Absent: pronater drift, facial droop, speech deficit - Skin Skin exam: Present: dry, intact Internal Medicine: Result - Labs CBC & Chem 7: 02/08/18 05:30 02/08/18 05:30 Consult Discharge Plan - Plan Referrals: NONE,PCP [Primary Care Provider] -
[2018-02-09] MEDS: PROGESTERONE MICRONIZED 200 MG PO SCH (21:00)
[2018-02-09] MEDS: Latanoprost 2.5 ML BOTTLE BOTH EYES SCH (21:01)
[2018-02-10] MEDS: Methocarbamol 750 MG TABLET PO PRN (02:13)
[2018-02-10] MEDS: *HR* OxyCODONE Immed Rel 5 MG TABLET PO PRN ×5 (02:50→22:23)
[2018-02-10] MEDS: NATURE THROID 97.5 MG PO SCH (05:06)
[2018-02-10] MEDS: *HR* Enoxaparin 30 MG/0.3 ML SYRINGE SQ SCH ×2 (05:06→18:15)
[2018-02-10] MEDS: Furosemide 20 MG TABLET PO SCH (09:21)
[2018-02-10] MEDS: Lactobacillus 1 EACH CAP.SPRINK PO SCH (09:21)
[2018-02-10] MEDS: Verapamil ER (24 HR) 240 MG TABLET.ER PO SCH (09:22)
[2018-02-10] MEDS: Multivit/Ca/Min/Fe/FA 1 TAB TABLET PO SCH (09:23)
[2018-02-10] MEDS: Cefepime HCl 2,000 MG in Water for inj. (sterile) 20 ML 20 ML IVP SCH ×2 (09:26→22:25)
[2018-02-10] MEDS: ICAPS AREDS FORMULA PO SCH (09:43)
[2018-02-10] MEDS: NIACIN 500 MG PO SCH (09:43)
[2018-02-10] MEDS: Acetaminophen 325 MG TABLET PO PRN (12:39)
[2018-02-10] MEDS: PROGESTERONE MICRONIZED 200 MG PO SCH (22:22)
[2018-02-10] MEDS: Latanoprost 2.5 ML BOTTLE BOTH EYES SCH (22:23)
[2018-02-11] MEDS: NATURE THROID 97.5 MG PO SCH (06:28)
[2018-02-11] MEDS: *HR* OxyCODONE Immed Rel 5 MG TABLET PO PRN ×4 (06:28→22:18)
[2018-02-11] MEDS: *HR* Enoxaparin 30 MG/0.3 ML SYRINGE SQ SCH ×2 (06:28→18:32)
[2018-02-11] MEDS ORDERED: Cholecalciferol (D-3) 1,000 UNIT TABLET PO SCH (09:00)
[2018-02-11] MEDS: Multivit/Ca/Min/Fe/FA 1 TAB TABLET PO SCH (09:12)
[2018-02-11] MEDS: Acetaminophen 325 MG TABLET PO PRN (09:12)
[2018-02-11] MEDS: Verapamil ER (24 HR) 240 MG TABLET.ER PO SCH (09:12)
[2018-02-11] MEDS: Furosemide 20 MG TABLET PO SCH (09:14)
[2018-02-11] MEDS: Cefepime HCl 2,000 MG in Water for inj. (sterile) 20 ML 20 ML IVP SCH ×2 (09:14→22:20)
[2018-02-11] MEDS: Lactobacillus 1 EACH CAP.SPRINK PO SCH (09:14)
[2018-02-11] MEDS: NIACIN 500 MG PO SCH (09:15)
[2018-02-11] MEDS: ICAPS AREDS FORMULA PO SCH (09:15)
--- NOTE | 2018-02-11 15:03 | Internal Med Progress Note ---
Date of Encounter: 02/10/18 Time of Encounter: 14:50 - Subjective Interval history: - Assessment and plan (1) Tibial plateau fracture with prior infection Current Visit: Yes Status: Acute Assessment and plan: Improving dressing change today showed tissues are pink and only slight serosang drainage. Pain some worse today so changed pain med to q 4 hr prn. No acute issues. Patient continues with mobilizer brace in place to right leg. Vernon wrap dressing to the entire length leg remains dry and intact. Patient continues on cefepime IV antibiotics due to her infected wound. Antibiotics being managed per infectious disease. Patient remains afebrile overnight. Patient states that physical therapy has been progressing well. Qualifiers: Encounter type: subsequent encounter Fracture type: closed Laterality: right Fracture healing: with routine healing Qualified Code(s): S82.141D - Displaced bicondylar fracture of right tibia, subsequent encounter for closed fracture with routine healing (2) Radial fracture Current Visit: Yes Status: Acute Assessment and plan: No acute issues. Patient continues with immobilizer brace to right forearm and wrist. Distal CV normal. We will continue with current plan of care Qualifiers: Encounter type: subsequent encounter Radius location: shaft Fracture type: closed Fracture morphology: unspecified fracture morphology Laterality: right Fracture healing: with routine healing Qualified Code(s): S52.301D - Unspecified fracture of shaft of right radius, subsequent encounter for closed fracture with routine healing (3) Hypertension Current Visit: Yes Status: Chronic Assessment and plan: Vital signs are stable. We will continue with current medications. Qualifiers: Hypertension type: essential hypertension Qualified Code(s): I10 - Essential (primary) hypertension (4) Chronic kidney disease, stage III (moderate) Current Visit: Yes Status: Chronic Assessment and plan: No acute issues. Patient's last creatinine was 0.82. Continue with current medications. We will continue with serial labs mild anemia may be due to this (5) Rib fractures Current Visit: Yes Status: Acute Assessment and plan: No acute issues. Patient with history of multiple rib fractures. Lungs are clear with no rales or crepitus noted. Qualifiers: Encounter type: subsequent encounter Rib fracture type: multiple ribs Fracture type: closed Laterality: bilateral Fracture healing: with routine healing Qualified Code(s): S22.43XD - Multiple fractures of ribs, bilateral, subsequent encounter for fracture with routine healing (6) Traumatic compression fracture of T8 thoracic vertebra Current Visit: Yes Status: Acute Assessment and plan: No acute issues. Patient continues use TLSO brace when out of bed. No acute neurological deficits noted on exam. We will continue with physical therapy. Qualifiers: Encounter type: subsequent encounter Fracture healing: with routine healing Qualified Code(s): S22.060D - Wedge compression fracture of T7-T8 vertebra, subsequent encounter for fracture with routine healing - Time Spent With Patient less than 15 minutes - Subjective Interval history: Patient appears relaxed and currently denies any discomforts or shortness of breath. Patient states that physical therapy has been progressing well. Patient states that her pain has been currently well tolerated with current medications. - Constitutional Vitals: Temp Pulse Resp BP Pulse Ox 98.2 F 59 16 130/51 92 02/09/18 07:58 02/09/18 07:58 02/09/18 07:58 02/09/18 07:58 02/09/18 07:58 General appearance: Present: A&O X 3, pleasant - Head Head exam: Present: atraumatic, normocephalic - Eye Eye exam: Present: PERRL, conjuntiva pink, sclera anicteric Pupils: Present: PERRL - Neck Neck exam general surgery: Present: supple, trachea midline. Absent: lymphadenopathy - Respiratory Respiratory exam: Present: CTAB. Absent: accessory muscle use, rales, rhonchi, wheezes - Cardiovascular Cardiovascular exam: Present: RRR, +S1, +S2. Absent: diastolic murmur, gallop, rubs, systolic murmur - GI/Abdominal GI/Abdominal exam: Present: normal bowel sounds, soft, no peritoneal signs. Absent: distended, tenderness - Extremities Exam Extremities exam: Present: warm, radial pulses palpable and symmetrical. Absent: calf tenderness, cyanotic, pedal edema Additional comments: Right leg with a full-length Vernon wrap that is dry and intact and currently has a full-length immobilizer in place. Distal CV checks are normal. Right forearm and wrist has a immobilizer in place. Patient has a TLSO brace that she wears when up out of bed mobilizing due to her thoracic vertebrae fracture. No acute neurological deficits noted on exam - Neurological Exam Neurological exam: Present: CN II-XII intact, oriented X3, no focal deficits. Absent: pronater drift, facial droop, speech deficit - Skin Skin exam: Present: dry, intact - Constitutional Vitals: Temp Pulse Resp BP Pulse Ox 98.3 F 60 16 114/53 96 02/11/18 08:09 02/11/18 08:09 02/11/18 08:09 02/11/18 08:09 02/11/18 08:09 General appearance: Present: A&O X 3, pleasant Internal Medicine: Result - Labs CBC & Chem 7: 02/08/18 05:30 02/08/18 05:30 Consult Discharge Plan - Plan Referrals: NONE,PCP [Primary Care Provider] -
[2018-02-11] MEDS: PROGESTERONE MICRONIZED 200 MG PO SCH (22:17)
[2018-02-11] MEDS: Latanoprost 2.5 ML BOTTLE BOTH EYES SCH (22:18)
[2018-02-12] MEDS: *HR* OxyCODONE Immed Rel 5 MG TABLET PO PRN ×4 (04:56→18:06)
[2018-02-12] MEDS: NATURE THROID 97.5 MG PO SCH (04:56)
[2018-02-12] MEDS: *HR* Enoxaparin 30 MG/0.3 ML SYRINGE SQ SCH ×2 (04:56→17:59)
[2018-02-12] MEDS: Cefepime HCl 2,000 MG in Water for inj. (sterile) 20 ML 20 ML IVP SCH ×2 (09:26→20:34)
[2018-02-12] MEDS: Lactobacillus 1 EACH CAP.SPRINK PO SCH (09:27)
[2018-02-12] MEDS: Verapamil ER (24 HR) 240 MG TABLET.ER PO SCH (09:27)
[2018-02-12] MEDS: Multivit/Ca/Min/Fe/FA 1 TAB TABLET PO SCH (09:27)
[2018-02-12] MEDS: Furosemide 20 MG TABLET PO SCH (09:28)
[2018-02-12] MEDS: ICAPS AREDS FORMULA PO SCH (09:29)
[2018-02-12] MEDS: NIACIN 500 MG PO SCH (09:29)
--- NOTE | 2018-02-12 11:43 | Internal Med Progress Note ---
Addendum entered and electronically signed by Brittanie South 02/12/18 17:00: I have personally performed a face to face evaluation on this patient. I have reviewed and agree with the care plan. History and Exam by me shows: unchanged Original Note: Date of Encounter: 02/12/18 Time of Encounter: 11:40 - Assessment and plan (1) Radial fracture Current Visit: Yes Status: Acute Assessment and plan: Pain controlled. Healing. Follow up with ortho as scheduled. Qualifiers: Encounter type: subsequent encounter Radius location: shaft Fracture type: closed Fracture morphology: unspecified fracture morphology Laterality: right Fracture healing: with routine healing Qualified Code(s): S52.301D - Unspecified fracture of shaft of right radius, subsequent encounter for closed fracture with routine healing (2) Tibial plateau fracture Current Visit: Yes Status: Acute Assessment and plan: Pain controlled with oxycodone. Continue nonweightbearing status. Continue brace. Follow up with ortho as scheduled. Continue IV antibiotics. Qualifiers: Encounter type: subsequent encounter Fracture type: closed Laterality: right Fracture healing: with routine healing Qualified Code(s): S82.141D - Displaced bicondylar fracture of right tibia, subsequent encounter for closed fracture with routine healing (3) Hypertension Current Visit: Yes Status: Chronic Assessment and plan: Controlled with current medication. Monitor blood pressure. Qualifiers: Hypertension type: essential hypertension Qualified Code(s): I10 - Essential (primary) hypertension (4) Rib fractures Current Visit: Yes Status: Acute Assessment and plan: Pain controlled. Healing. Qualifiers: Encounter type: subsequent encounter Rib fracture type: multiple ribs Fracture type: closed Laterality: bilateral Fracture healing: with routine healing Qualified Code(s): S22.43XD - Multiple fractures of ribs, bilateral, subsequent encounter for fracture with routine healing (5) Traumatic compression fracture of T8 thoracic vertebra Current Visit: Yes Status: Acute Assessment and plan: Pain controlled. Wear TLSO brace. When up Qualifiers: Encounter type: subsequent encounter Fracture healing: with routine healing Qualified Code(s): S22.060D - Wedge compression fracture of T7-T8 vertebra, subsequent encounter for fracture with routine healing - Time Spent With Patient less than 15 minutes - Subjective Interval history: Participating well with therapy. States pain is controlled with receiving pain medicines every 4 hours. Continue IV antibiotics. Wearing TLSO brace when up. Remains nonweightbearing to right lower extremity. Bowels moving as normal. Maintaining appetite and hydration. Nice fever, chills, nausea vomiting or diarrhea. Denies shortness of breath or chest pain. - Constitutional Vitals: Temp Pulse Resp BP Pulse Ox 98.7 F 56 17 116/51 93 02/12/18 07:06 02/12/18 07:06 02/12/18 07:06 02/12/18 07:06 02/12/18 07:06 General appearance: Present: cooperative, A&O X 3, pleasant - Head Head exam: Present: atraumatic, normocephalic - Eye Eye exam: Present: PERRL, conjuntiva pink, sclera anicteric Pupils: Present: PERRL - Neck Neck exam general surgery: Present: supple, trachea midline. Absent: lymphadenopathy - Respiratory Respiratory exam: Present: CTAB. Absent: accessory muscle use, rales, rhonchi, wheezes - Cardiovascular Cardiovascular exam: Present: RRR, +S1, +S2. Absent: diastolic murmur, gallop, rubs, systolic murmur - GI/Abdominal GI/Abdominal exam: Present: normal bowel sounds, soft, no peritoneal signs. Absent: distended, tenderness - Extremities Exam Extremities exam: Present: warm, radial pulses palpable and symmetrical. Absent: calf tenderness, cyanotic, pedal edema Additional comments: Right lower extremity non-pitting edema. - Incison Comments: Right knee incision dressing dry and intact. - Neurological Exam Neurological exam: Present: CN II-XII intact, oriented X3, no focal deficits. Absent: pronater drift, facial droop, speech deficit - Skin Skin exam: Present: dry, intact Internal Medicine: Result - Labs CBC & Chem 7: 02/08/18 05:30 02/08/18 05:30 Consult Discharge Plan - Plan Referrals: NONE,PCP [Primary Care Provider] -
[2018-02-12] MEDS: Acetaminophen 325 MG TABLET PO PRN (12:17)
[2018-02-12] MEDS: PROGESTERONE MICRONIZED 200 MG PO SCH (20:30)
[2018-02-12] MEDS: Latanoprost 2.5 ML BOTTLE BOTH EYES SCH (20:32)
[2018-02-13] MEDS: *HR* OxyCODONE Immed Rel 5 MG TABLET PO PRN ×4 (05:45→21:23)
[2018-02-13] MEDS: *HR* Enoxaparin 30 MG/0.3 ML SYRINGE SQ SCH ×2 (05:46→17:20)
[2018-02-13] MEDS: NATURE THROID 97.5 MG PO SCH (05:46)
[2018-02-13] MEDS: Cefepime HCl 2,000 MG in Water for inj. (sterile) 20 ML 20 ML IVP SCH ×2 (07:53→21:03)
[2018-02-13] MEDS: Lactobacillus 1 EACH CAP.SPRINK PO SCH (07:55)
[2018-02-13] MEDS: Verapamil ER (24 HR) 240 MG TABLET.ER PO SCH (07:55)
[2018-02-13] MEDS: Acetaminophen 325 MG TABLET PO PRN (07:55)
[2018-02-13] MEDS: Furosemide 20 MG TABLET PO SCH (07:55)
[2018-02-13] MEDS: Multivit/Ca/Min/Fe/FA 1 TAB TABLET PO SCH (07:55)
[2018-02-13] MEDS: ICAPS AREDS FORMULA PO SCH (07:58)
[2018-02-13] MEDS: NIACIN 500 MG PO SCH (07:59)
--- NOTE | 2018-02-13 10:46 | Internal Med Progress Note ---
Addendum entered and electronically signed by Brittanie South 02/13/18 13:53: I have personally performed a face to face evaluation on this patient. I have reviewed and agree with the care plan. Original Note: Date of Encounter: 02/13/18 Time of Encounter: 10:43 - Assessment and plan (1) Radial fracture Current Visit: Yes Status: Acute Assessment and plan: Pain controlled. Healing. Follow up with ortho as scheduled. Qualifiers: Encounter type: subsequent encounter Radius location: shaft Fracture type: closed Fracture morphology: unspecified fracture morphology Laterality: right Fracture healing: with routine healing Qualified Code(s): S52.301D - Unspecified fracture of shaft of right radius, subsequent encounter for closed fracture with routine healing (2) Tibial plateau fracture Current Visit: Yes Status: Acute Assessment and plan: Pain controlled with oxycodone. Continue nonweightbearing status. Continue brace. Follow up with ortho as scheduled. Continue IV antibiotics. Qualifiers: Encounter type: subsequent encounter Fracture type: closed Laterality: right Fracture healing: with routine healing Qualified Code(s): S82.141D - Displaced bicondylar fracture of right tibia, subsequent encounter for closed fracture with routine healing (3) Hypertension Current Visit: Yes Status: Chronic Assessment and plan: Controlled with current medication. Monitor blood pressure. Qualifiers: Hypertension type: essential hypertension Qualified Code(s): I10 - Essential (primary) hypertension (4) Rib fractures Current Visit: Yes Status: Acute Assessment and plan: Pain controlled. Healing. Qualifiers: Encounter type: subsequent encounter Rib fracture type: multiple ribs Fracture type: closed Laterality: bilateral Fracture healing: with routine healing Qualified Code(s): S22.43XD - Multiple fractures of ribs, bilateral, subsequent encounter for fracture with routine healing (5) Traumatic compression fracture of T8 thoracic vertebra Current Visit: Yes Status: Acute Assessment and plan: Pain controlled. Wear TLSO brace. When up Qualifiers: Encounter type: subsequent encounter Fracture healing: with routine healing Qualified Code(s): S22.060D - Wedge compression fracture of T7-T8 vertebra, subsequent encounter for fracture with routine healing - Time Spent With Patient less than 15 minutes - Subjective Interval history: Participating well with therapy. States pain is controlled with receiving pain medicines every 4 hours. Patient states increased fatigue today. States that she slept well. Discussed taking 5 mg instead of 10 mg of oxycodone. Continue IV antibiotics. Wearing TLSO brace when up. Remains nonweightbearing to right lower extremity. Bowels moving as normal. Maintaining appetite and hydration. Nice fever, chills, nausea vomiting or diarrhea. Denies shortness of breath or chest pain. - Constitutional Vitals: Temp Pulse Resp BP Pulse Ox 98.4 F 53 16 125/50 94 02/13/18 07:00 02/13/18 07:00 02/13/18 07:00 02/13/18 07:00 02/13/18 07:00 General appearance: Present: cooperative, A&O X 3, pleasant - Head Head exam: Present: atraumatic, normocephalic - Eye Eye exam: Present: PERRL, conjuntiva pink, sclera anicteric Pupils: Present: PERRL - Neck Neck exam general surgery: Present: supple, trachea midline. Absent: lymphadenopathy - Respiratory Respiratory exam: Present: CTAB. Absent: accessory muscle use, rales, rhonchi, wheezes - Cardiovascular Cardiovascular exam: Present: RRR, +S1, +S2. Absent: diastolic murmur, gallop, rubs, systolic murmur - GI/Abdominal GI/Abdominal exam: Present: normal bowel sounds, soft, no peritoneal signs. Absent: distended, tenderness - Extremities Exam Extremities exam: Present: warm, radial pulses palpable and symmetrical. Absent: calf tenderness, cyanotic, pedal edema - Incison Comments: Right tibial incision slight serousanguinous drainage. Incision well approximated with sutures intact. Slight non-pitting edema to right lower extremity. - Neurological Exam Neurological exam: Present: CN II-XII intact, oriented X3, no focal deficits. Absent: pronater drift, facial droop, speech deficit - Skin Skin exam: Present: dry, intact Internal Medicine: Result - Labs CBC & Chem 7: 02/08/18 05:30 02/08/18 05:30 Consult Discharge Plan - Plan Referrals: NONE,PCP [Primary Care Provider] -
[2018-02-13 13:21] LABS: Basophils % 0.3 %; Eosinophils # 0.2 K/mcL (0.0-0.6); Eosinophils % 2.4 %; Hematocrit 32.3 % (35.3-44.9); Immature Granulocytes % 0.3 % (0-4); Lymphocytes # 0.9 K/mcL (0.6-4.6); Lymphocytes % 14.2 %; Mean Corpuscular Hemoglobin 29.7 pg (28.0-33.3); Mean Corpuscular Volume 95.8 fL (83.0-100.0); Mean Platelet Volume 10.6 fL (9.4-12.4); Monocytes # 0.6 K/mcL (0.0-1.3); Monocytes % 8.5 %; Neutrophils # 4.9 K/mcL (1.6-8.9); Platelet Count 188 K/mcL (140-400); Red Blood Count 3.37 M/mcL (3.82-4.97); Red Cell Distribution Width 16.1 % (11.5-14.5); Segmented Neutrophils % 74.3 %
[2018-02-13 13:35] LABS: Calcium 9.6 mg/dL (8.6-10.3)
[2018-02-13] MEDS: Latanoprost 2.5 ML BOTTLE BOTH EYES SCH (20:59)
[2018-02-13] MEDS: Ascorbic Acid 500 MG TABLET PO SCH (21:00)
[2018-02-13] MEDS: PROGESTERONE MICRONIZED 200 MG PO SCH (21:00)
[2018-02-14] MEDS: Acetaminophen 325 MG TABLET PO PRN (04:23)
[2018-02-14] MEDS: *HR* Enoxaparin 30 MG/0.3 ML SYRINGE SQ SCH ×2 (05:07→18:22)
[2018-02-14] MEDS: NATURE THROID 97.5 MG PO SCH (05:09)
[2018-02-14 05:27] LABS: Hematocrit 28.2 % (35.3-44.9); Hemoglobin 8.6 g/dL (11.5-15.4); Mean Corpuscular HGB Conc 30.5 g/dL (31.6-35.5); Mean Corpuscular Volume 94.9 fL (83.0-100.0); Mean Platelet Volume 10.5 fL (9.4-12.4); Platelet Count 167 K/mcL (140-400); Red Blood Count 2.97 M/mcL (3.82-4.97); Red Cell Distribution Width 16.3 % (11.5-14.5)
[2018-02-14 05:41] LABS: Calcium 9.4 mg/dL (8.6-10.3); Potassium 3.3 mEq/L (3.5-5.1)
[2018-02-14] MEDS: *HR* OxyCODONE Immed Rel 5 MG TABLET PO PRN ×3 (07:19→22:45)
[2018-02-14] MEDS: Cefepime HCl 2,000 MG in Water for inj. (sterile) 20 ML 20 ML IVP SCH ×3 (08:34→23:45)
[2018-02-14] MEDS: Ascorbic Acid 500 MG TABLET PO SCH ×2 (08:35→22:44)
--- NOTE | 2018-02-14 13:21 | Internal Med Progress Note ---
Date of Encounter: 02/14/18 Time of Encounter: 13:19 - Assessment and plan (1) Radial fracture Current Visit: Yes Status: Acute Assessment and plan: Pain controlled. Healing. Follow up with ortho as scheduled. Qualifiers: Encounter type: subsequent encounter Radius location: shaft Fracture type: closed Fracture morphology: unspecified fracture morphology Laterality: right Fracture healing: with routine healing Qualified Code(s): S52.301D - Unspecified fracture of shaft of right radius, subsequent encounter for closed fracture with routine healing (2) Tibial plateau fracture Current Visit: Yes Status: Acute Assessment and plan: Pain controlled with oxycodone. Continue nonweightbearing status. Continue brace. Follow up with ortho as scheduled. Continue IV antibiotics. Qualifiers: Encounter type: subsequent encounter Fracture type: closed Laterality: right Fracture healing: with routine healing Qualified Code(s): S82.141D - Displaced bicondylar fracture of right tibia, subsequent encounter for closed fracture with routine healing (3) Hypertension Current Visit: Yes Status: Chronic Assessment and plan: Controlled with current medication. Monitor blood pressure. Qualifiers: Hypertension type: essential hypertension Qualified Code(s): I10 - Essential (primary) hypertension (4) Rib fractures Current Visit: Yes Status: Acute Assessment and plan: Pain controlled. Healing. Qualifiers: Encounter type: subsequent encounter Rib fracture type: multiple ribs Fracture type: closed Laterality: bilateral Fracture healing: with routine healing Qualified Code(s): S22.43XD - Multiple fractures of ribs, bilateral, subsequent encounter for fracture with routine healing (5) Traumatic compression fracture of T8 thoracic vertebra Current Visit: Yes Status: Acute Assessment and plan: Pain controlled. Wear TLSO brace. When up Qualifiers: Encounter type: subsequent encounter Fracture healing: with routine healing Qualified Code(s): S22.060D - Wedge compression fracture of T7-T8 vertebra, barnett bsequent encounter for fracture with routine healing - Time Spent With Patient less than 15 minutes - Subjective Interval history: Participating well with therapy. Pain controlled. Went to see ortho today. Will encourage patient to be up in wheelchair more often and work on wheelchair mobility. Denies fever, chills, nausea vomiting or diarrhea. - Constitutional Vitals: Temp Pulse Resp BP Pulse Ox 98.0 F 67 16 154/84 95 02/14/18 06:37 02/14/18 06:37 02/14/18 06:37 02/14/18 06:37 02/14/18 06:37 General appearance: Present: cooperative, A&O X 3, pleasant - Head Head exam: Present: atraumatic, normocephalic - Eye Eye exam: Present: PERRL, conjuntiva pink, sclera anicteric Pupils: Present: PERRL - Neck Neck exam general surgery: Present: supple, trachea midline. Absent: lymphadenopathy - Respiratory Respiratory exam: Present: CTAB. Absent: accessory muscle use, rales, rhonchi, wheezes - Cardiovascular Cardiovascular exam: Present: RRR, +S1, +S2. Absent: diastolic murmur, gallop, rubs, systolic murmur - GI/Abdominal GI/Abdominal exam: Present: normal bowel sounds, soft, no peritoneal signs. Absent: distended, tenderness - Extremities Exam Extremities exam: Present: warm, radial pulses palpable and symmetrical. Absent: calf tenderness, cyanotic, pedal edema Additional comments: Right lower extremity non-pitting edema brace on right lower extremity and right upper extremity - Incison Comments: Right knee incision dressing dry and intact. Brace on. - Neurological Exam Neurological exam: Present: CN II-XII intact, oriented X3, no focal deficits. Absent: pronater drift, facial droop, speech deficit - Skin Skin exam: Present: dry, intact Internal Medicine: Result - Labs CBC & Chem 7: 02/14/18 05:13 02/14/18 05:13 Labs: Short CBC 02/13/18 02/14/18 Range/Units 13:15 05:13 WBC 6.6 5.3 (4.3-11.1) K/mcL Hgb 10.0 L 8.6 L (11.5-15.4) g/dL Hct 32.3 L 28.2 L (35.3-44.9) % Plt Count 188 167 (140-400) K/mcL Neutrophils # 4.9 (1.6-8.9) K/mcL BMP 02/13/18 02/14/18 13:15 05:13 Sodium 136 138 Potassium 4.0 3.3 L Chloride 103 105 Carbon Dioxide 25 26 BUN 26 H 25 H Creatinine 1.46 H 1.30 H Glucose 179 H 111 H Calcium 9.6 9.4 Consult Discharge Plan - Plan Referrals: NONE,PCP [Primary Care Provider] -
[2018-02-14] MEDS: Verapamil ER (24 HR) 240 MG TABLET.ER PO SCH (14:58)
[2018-02-14] MEDS: Furosemide 20 MG TABLET PO SCH (15:00)
[2018-02-14] MEDS: Lactobacillus 1 EACH CAP.SPRINK PO SCH (15:00)
[2018-02-14] MEDS: ICAPS AREDS FORMULA PO SCH (15:01)
[2018-02-14] MEDS: Multivit/Ca/Min/Fe/FA 1 TAB TABLET PO SCH (15:02)
[2018-02-14] MEDS: NIACIN 500 MG PO SCH (15:02)
[2018-02-14] MEDS: PROGESTERONE MICRONIZED 200 MG PO SCH (22:43)
[2018-02-14] MEDS: Latanoprost 2.5 ML BOTTLE BOTH EYES SCH (22:45)
[2018-02-15] MEDS: NATURE THROID 97.5 MG PO SCH (05:46)
[2018-02-15] MEDS: *HR* Enoxaparin 30 MG/0.3 ML SYRINGE SQ SCH ×2 (05:46→18:22)
[2018-02-15] MEDS: *HR* OxyCODONE Immed Rel 5 MG TABLET PO PRN ×4 (05:47→20:38)
[2018-02-15 06:08] LABS: Basophils % 0.4 %; Eosinophils # 0.2 K/mcL (0.0-0.6); Eosinophils % 4.4 %; Hematocrit 29.3 % (35.3-44.9); Immature Granulocytes % 0.2 % (0-4); Lymphocytes # 1.2 K/mcL (0.6-4.6); Lymphocytes % 21.4 %; Mean Corpuscular HGB Conc 30.7 g/dL (31.6-35.5); Mean Corpuscular Hemoglobin 29.3 pg (28.0-33.3); Mean Corpuscular Volume 95.4 fL (83.0-100.0); Mean Platelet Volume 10.5 fL (9.4-12.4); Monocytes # 0.8 K/mcL (0.0-1.3); Monocytes % 13.8 %; Neutrophils # 3.3 K/mcL (1.6-8.9); Platelet Count 178 K/mcL (140-400); Red Blood Count 3.07 M/mcL (3.82-4.97); Red Cell Distribution Width 16.2 % (11.5-14.5); Segmented Neutrophils % 59.8 %
[2018-02-15 06:25] LABS: Calcium 9.2 mg/dL (8.6-10.3); Potassium 3.3 mEq/L (3.5-5.1)
[2018-02-15] MEDS: Multivit/Ca/Min/Fe/FA 1 TAB TABLET PO SCH (09:28)
[2018-02-15] MEDS: Furosemide 20 MG TABLET PO SCH (09:28)
[2018-02-15] MEDS: Lactobacillus 1 EACH CAP.SPRINK PO SCH (09:28)
[2018-02-15] MEDS: ICAPS AREDS FORMULA PO SCH (09:29)
[2018-02-15] MEDS: Verapamil ER (24 HR) 240 MG TABLET.ER PO SCH (09:29)
[2018-02-15] MEDS: NIACIN 500 MG PO SCH (09:29)
[2018-02-15] MEDS: Cefepime HCl 2,000 MG in Water for inj. (sterile) 20 ML 20 ML IVP SCH ×2 (09:29→23:42)
[2018-02-15] MEDS: Ascorbic Acid 500 MG TABLET PO SCH ×2 (09:29→23:41)
--- NOTE | 2018-02-15 11:50 | Internal Med Progress Note ---
Addendum entered and electronically signed by Brittanei South 02/15/18 13:34: I have personally performed a face to face evaluation on this patient. I have reviewed and agree with the care plan. Original Note: Date of Encounter: 02/15/18 Time of Encounter: 11:46 - Assessment and plan (1) Tibial plateau fracture Current Visit: Yes Status: Acute Assessment and plan: No acute issues. Patient continues with mobilizer brace in place to right leg. Vernon wrap dressing to the entire length leg remains dry and intact. Patient continues on cefepime IV antibiotics due to her infected wound. Antibiotics being managed per infectious disease. Patient remains afebrile. Patient states that physical therapy has been progressing well. Patient states that her pain has been well-controlled with current medications. Qualifiers: Encounter type: subsequent encounter Fracture type: closed Laterality: right Fracture healing: with routine healing Qualified Code(s): S82.141D - Displaced bicondylar fracture of right tibia, subsequent encounter for closed fracture with routine healing (2) Radial fracture Current Visit: Yes Status: Acute Assessment and plan: No acute issues. Patient continues with immobilizer brace to right forearm and wrist. Distal CV normal. We will continue with current plan of care Qualifiers: Encounter type: subsequent encounter Radius location: shaft Fracture type: closed Fracture morphology: unspecified fracture morphology Laterality: right Fracture healing: with routine healing Qualified Code(s): S52.301D - Unspecified fracture of shaft of right radius, subsequent encounter for closed fracture with routine healing (3) Hypertension Current Visit: Yes Status: Chronic Assessment and plan: Vital signs are stable. We will continue with current medications. Qualifiers: Hypertension type: essential hypertension Qualified Code(s): I10 - Essential (primary) hypertension (4) Chronic kidney disease, stage III (moderate) Current Visit: Yes Status: Chronic Assessment and plan: No acute issues. Continue with current medications. We will continue with serial labs (5) Rib fractures Current Visit: Yes Status: Acute Assessment and plan: No acute issues. Patient with history of multiple rib fractures. Lungs are clear with no rales or crepitus noted. Qualifiers: Encounter type: subsequent encounter Rib fracture type: multiple ribs Fracture type: closed Laterality: bilateral Fracture healing: with routine healing Qualified Code(s): S22.43XD - Multiple fractures of ribs, bilateral, subsequent encounter for fracture with routine healing (6) Traumatic compression fracture of T8 thoracic vertebra Current Visit: Yes Status: Acute Assessment and plan: No acute issues. Patient continues use TLSO brace when out of bed. No acute neurological deficits noted on exam. We will continue with physical therapy. Qualifiers: Encounter type: subsequent encounter Fracture healing: with routine healing Qualified Code(s): S22.060D - Wedge compression fracture of T7-T8 vertebra, subsequent encounter for fracture with routine healing - Time Spent With Patient less than 15 minutes - Subjective Interval history: Patient appears relaxed and currently denies any discomforts or shortness of breath. Patient states that physical therapy has been progressing well. Patient states that her pain has been currently well tolerated with current medications. - Constitutional Vitals: Temp Pulse Resp BP Pulse Ox 98.7 F 67 16 129/51 97 02/15/18 07:23 02/15/18 07:23 02/15/18 07:23 02/15/18 07:23 02/15/18 07:23 General appearance: Present: cooperative, A&O X 3, pleasant - Head Head exam: Present: atraumatic, normocephalic - Eye Eye exam: Present: PERRL, conjuntiva pink, sclera anicteric Pupils: Present: PERRL - Neck Neck exam general surgery: Present: supple, trachea midline. Absent: lymphadenopathy - Respiratory Respiratory exam: Present: CTAB. Absent: accessory muscle use, rales, rhonchi, wheezes - Cardiovascular Cardiovascular exam: Present: RRR, +S1, +S2. Absent: diastolic murmur, gallop, rubs, systolic murmur - GI/Abdominal GI/Abdominal exam: Present: normal bowel sounds, soft, no peritoneal signs. Absent: distended, tenderness - Extremities Exam Extremities exam: Present: warm, radial pulses palpable and symmetrical. Absent: calf tenderness, cyanotic, pedal edema Additional comments: Right leg remains in full-length immobilizer brace. Dressing remains dry and intact. Right forearm remains in immobilizer brace. Distal CV checks on extremities within normal limits - Neurological Exam Neurological exam: Present: CN II-XII intact, oriented X3, no focal deficits. Absent: pronater drift, facial droop, speech deficit - Skin Skin exam: Present: dry, intact Internal Medicine: Result - Labs CBC & Chem 7: 02/15/18 06:00 02/15/18 06:00 Labs: Short CBC 02/15/18 Range/Units 06:00 WBC 5.5 (4.3-11.1) K/mcL Hgb 9.0 L (11.5-15.4) g/dL Hct 29.3 L (35.3-44.9) % Plt Count 178 (140-400) K/mcL Neutrophils # 3.3 (1.6-8.9) K/mcL BMP 02/15/18 06:00 Sodium 140 Potassium 3.3 L Chloride 107 Carbon Dioxide 26 BUN 25 H Creatinine 1.28 H Glucose 105 Calcium 9.2 Consult Discharge Plan - Plan Referrals: NONE,PCP [Primary Care Provider] -
[2018-02-15] MEDS: PROGESTERONE MICRONIZED 200 MG PO SCH (23:41)
[2018-02-15] MEDS: Latanoprost 2.5 ML BOTTLE BOTH EYES SCH (23:41)
[2018-02-16] MEDS: *HR* Enoxaparin 30 MG/0.3 ML SYRINGE SQ SCH ×2 (06:25→17:39)
[2018-02-16] MEDS: NATURE THROID 97.5 MG PO SCH (06:25)
[2018-02-16] MEDS: *HR* OxyCODONE Immed Rel 5 MG TABLET PO PRN ×5 (06:26→22:48)
[2018-02-16] MEDS: Cefepime HCl 2,000 MG in Water for inj. (sterile) 20 ML 20 ML IVP SCH ×2 (10:30→21:52)
[2018-02-16] MEDS: Ascorbic Acid 500 MG TABLET PO SCH ×2 (10:30→21:51)
--- NOTE | 2018-02-16 11:56 | Internal Med Progress Note ---
Addendum entered and electronically signed by Brittanie South 02/16/18 18:42: I have personally performed a face to face evaluation on this patient. I have reviewed and agree with the care plan. Original Note: Date of Encounter: 02/16/18 Time of Encounter: 11:54 - Assessment and plan (1) Tibial plateau fracture Current Visit: Yes Status: Acute Assessment and plan: No acute issues. Patient continues with mobilizer brace in place to right leg. Vernon wrap dressing to the entire length leg remains dry and intact. Antibiotics being managed per infectious disease. Patient remains afebrile. Patient states that physical therapy has been progressing well. Patient states that her pain has been well-controlled with current medications. Qualifiers: Encounter type: subsequent encounter Fracture type: closed Laterality: right Fracture healing: with routine healing Qualified Code(s): S82.141D - Displaced bicondylar fracture of right tibia, subsequent encounter for closed fracture with routine healing (2) Radial fracture Current Visit: Yes Status: Acute Assessment and plan: No acute issues. Patient continues with immobilizer brace to right forearm and wrist. Distal CV normal. We will continue with current plan of care Qualifiers: Encounter type: subsequent encounter Radius location: shaft Fracture type: closed Fracture morphology: unspecified fracture morphology Laterality: right Fracture healing: with routine healing Qualified Code(s): S52.301D - Unspecified fracture of shaft of right radius, subsequent encounter for closed fracture with routine healing (3) Hypertension Current Visit: Yes Status: Chronic Assessment and plan: Vital signs are stable. We will continue with current medications. Qualifiers: Hypertension type: essential hypertension Qualified Code(s): I10 - Essential (primary) hypertension (4) Chronic kidney disease, stage III (moderate) Current Visit: Yes Status: Chronic Assessment and plan: No acute issues. Continue with current medications. We will continue with serial labs (5) Rib fractures Current Visit: Yes Status: Acute Assessment and plan: No acute issues. Patient with history of multiple rib fractures. Lungs are clear with no rales or crepitus noted. Qualifiers: Encounter type: subsequent encounter Rib fracture type: multiple ribs Fracture type: closed Laterality: bilateral Fracture healing: with routine healing Qualified Code(s): S22.43XD - Multiple fractures of ribs, bilateral, subsequent encounter for fracture with routine healing (6) Traumatic compression fracture of T8 thoracic vertebra Current Visit: Yes Status: Acute Assessment and plan: No acute issues. Patient continues use TLSO brace when out of bed. No acute neurological deficits noted on exam. We will continue with physical therapy. Qualifiers: Encounter type: subsequent encounter Fracture healing: with routine healing Qualified Code(s): S22.060D - Wedge compression fracture of T7-T8 vertebra, subsequent encounter for fracture with routine healing - Time Spent With Patient less than 15 minutes - Subjective Interval history: Patient appears relaxed and currently denies any discomforts or shortness of breath. Patient states that she feels that her physical therapy has been progressing well. Denies any other issues. States pain medication has been effective.. - Constitutional Vitals: Temp Pulse Resp BP Pulse Ox 98.3 F 58 16 119/52 93 02/16/18 08:39 02/16/18 08:39 02/16/18 08:39 02/16/18 08:39 02/16/18 08:39 General appearance: Present: cooperative, A&O X 3, pleasant - Head Head exam: Present: atraumatic, normocephalic - Eye Eye exam: Present: PERRL, conjuntiva pink, sclera anicteric Pupils: Present: PERRL - Neck Neck exam general surgery: Present: supple, trachea midline. Absent: lymphadeno cali - Respiratory Respiratory exam: Present: CTAB. Absent: accessory muscle use, rales, rhonchi, wheezes - Cardiovascular Cardiovascular exam: Present: RRR, +S1, +S2. Absent: diastolic murmur, gallop, rubs, systolic murmur - GI/Abdominal GI/Abdominal exam: Present: normal bowel sounds, soft, no peritoneal signs. Absent: distended, tenderness - Extremities Exam Extremities exam: Present: normal capillary refill, normal inspection, pedal edema, warm, radial pulses palpable and symmetrical. Absent: calf tenderness, cyanotic Additional comments: Right leg remains and immobilizer with dressing BM dry and intact. Right foot appears slightly swollen Right forearm remains in a immobilizer with right hand slightly swollen. CV checks within normal limits - Back Exam Additional comments: Surgical incision appears to be healing well to lumbar area. TLSO brace and use when out of bed - Neurological Exam Neurological exam: Present: CN II-XII intact, oriented X3, no focal deficits. Absent: pronater drift, facial droop, speech deficit - Skin Skin exam: Present: dry, intact Internal Medicine: Result - Labs CBC & Chem 7: 02/15/18 06:00 02/15/18 06:00 Consult Discharge Plan - Plan Referrals: NONE,PCP [Primary Care Provider] -
[2018-02-16] MEDS: Lactobacillus 1 EACH CAP.SPRINK PO SCH (12:41)
[2018-02-16] MEDS: Furosemide 20 MG TABLET PO SCH (12:41)
[2018-02-16] MEDS: Verapamil ER (24 HR) 240 MG TABLET.ER PO SCH (12:41)
[2018-02-16] MEDS: NIACIN 500 MG PO SCH (12:42)
[2018-02-16] MEDS: ICAPS AREDS FORMULA PO SCH (12:42)
[2018-02-16] MEDS: Multivit/Ca/Min/Fe/FA 1 TAB TABLET PO SCH (12:42)
[2018-02-16] MEDS: Latanoprost 2.5 ML BOTTLE BOTH EYES SCH (21:54)
[2018-02-16] MEDS: PROGESTERONE MICRONIZED 200 MG PO SCH (21:55)
[2018-02-17] MEDS: *HR* Enoxaparin 30 MG/0.3 ML SYRINGE SQ SCH ×2 (06:05→16:49)
[2018-02-17] MEDS: NATURE THROID 97.5 MG PO SCH (06:05)
[2018-02-17] MEDS: *HR* OxyCODONE Immed Rel 5 MG TABLET PO PRN ×4 (06:09→21:01)
[2018-02-17] MEDS: Multivit/Ca/Min/Fe/FA 1 TAB TABLET PO SCH (08:49)
[2018-02-17] MEDS: Verapamil ER (24 HR) 240 MG TABLET.ER PO SCH (08:49)
[2018-02-17] MEDS: Ascorbic Acid 500 MG TABLET PO SCH ×2 (08:49→21:00)
[2018-02-17] MEDS: Cefepime HCl 2,000 MG in Water for inj. (sterile) 20 ML 20 ML IVP SCH ×2 (08:49→21:20)
[2018-02-17] MEDS: Lactobacillus 1 EACH CAP.SPRINK PO SCH (08:49)
[2018-02-17] MEDS: ICAPS AREDS FORMULA PO SCH (08:50)
[2018-02-17] MEDS: NIACIN 500 MG PO SCH (08:50)
[2018-02-17] MEDS: Furosemide 20 MG TABLET PO SCH (09:25)
[2018-02-17] MEDS: PROGESTERONE MICRONIZED 200 MG PO SCH (21:01)
[2018-02-17] MEDS: Latanoprost 2.5 ML BOTTLE BOTH EYES SCH (21:19)
[2018-02-18] MEDS: *HR* OxyCODONE Immed Rel 5 MG TABLET PO PRN ×4 (01:58→20:45)
[2018-02-18] MEDS: NATURE THROID 97.5 MG PO SCH (06:23)
[2018-02-18] MEDS: *HR* Enoxaparin 30 MG/0.3 ML SYRINGE SQ SCH ×2 (06:23→17:12)
[2018-02-18] MEDS: Verapamil ER (24 HR) 240 MG TABLET.ER PO SCH (09:34)
[2018-02-18] MEDS: Ascorbic Acid 500 MG TABLET PO SCH ×2 (09:34→20:47)
[2018-02-18] MEDS: Furosemide 20 MG TABLET PO SCH (09:34)
[2018-02-18] MEDS: Multivit/Ca/Min/Fe/FA 1 TAB TABLET PO SCH (09:34)
[2018-02-18] MEDS: Lactobacillus 1 EACH CAP.SPRINK PO SCH (09:34)
[2018-02-18] MEDS: NIACIN 500 MG PO SCH (09:35)
[2018-02-18] MEDS: Cefepime HCl 2,000 MG in Water for inj. (sterile) 20 ML 20 ML IVP SCH ×2 (09:35→20:43)
[2018-02-18] MEDS: ICAPS AREDS FORMULA PO SCH (09:35)
--- NOTE | 2018-02-18 14:35 | Internal Med Progress Note ---
Date of Encounter: 02/17/18 Time of Encounter: 17:00 - Subjective Interval history: - Assessment and plan (1) Tibial plateau fracture complicated with prior infection and deconditioning Current Visit: Yes Status: Acute Assessment and plan: Improving area dressing changes show only slight serosang drainage. tissues are pink Pain still there but improving slowly pt progressing in therapy. No acute issues. Patient continues with mobilizer brace in place to right leg. . Patient continues on cefepime IV antibiotics due to her infected wound. Antibiotics being managed per infectious disease. Patient remains afebrile Pt was feeling chilled but improving today eating better Qualifiers: Encounter type: subsequent encounter Fracture type: closed Laterality: right Fracture healing: with routine healing Qualified Code(s): S82.141D - Displaced bicondylar fracture of right tibia, subsequent encounter for closed fracture with routine healing (2) Radial fracture Current Visit: Yes Status: Acute Assessment and plan: No acute issues. From trauma. Patient continues with immobilizer brace to right forearm and wrist. Distal CV normal. We will continue with current plan of care Qualifiers: Encounter type: subsequent encounter Radius location: shaft Fracture type: closed Fracture morphology: unspecified fracture morphology Laterality: right Fracture healing: with routine healing Qualified Code(s): S52.301D - Unspecified fracture of shaft of right radius, subsequent encounter for closed fracture with routine healing (3) Hypertension Current Visit: Yes Status: Chronic Assessment and plan: Vital signs are stable. We will continue with current medications. Qualifiers: Hypertension type: essential hypertension Qualified Code(s): I10 - Essential (primary) hypertension (4) Chronic kidney disease, stage III (moderate) Current Visit: Yes Status: Chronic Assessment and plan: No acute issues. stable and mild Continue with current medications. We will continue with serial labs mild anemia may be due to this (5) Rib fractures Current Visit: Yes Status: Acute Assessment and plan: No acute issues. Patient with history of multiple rib fractures. Lungs are clear with no rales or crepitus noted. Qualifiers: Encounter type: subsequent encounter Rib fracture type: multiple ribs Fracture type: closed Laterality: bilateral Fracture healing: with routine healing Qualified Code(s): S22.43XD - Multiple fractures of ribs, bilateral, subsequent encounter for fracture with routine healing (6) Traumatic compression fracture of T8 thoracic vertebra Current Visit: Yes Status: Acute Assessment and plan: No acute issues. Patient continues use TLSO brace when out of bed. No acute neurological deficits noted on exam. We will continue with physical therapy. Qualifiers: Encounter type: subsequent encounter Fracture healing: with routine healing Qualified Code(s): S22.060D - Wedge compression fracture of T7-T8 vertebra, subsequent encounter for fracture with routine healing (7) Anemia will monitor - Time Spent With Patient less than 15 minutes - Subjective Interval history: Patient appears relaxed and currently denies any discomforts or shortness of breath. Patient states that physical therapy has been progressing well. Patient states that her pain has been currently well tolerated with current medications. Mood is improving. General appearance: Present: pleasant , A&O X 3, pleasant - Neck Neck exam general surgery: Present: supple, trachea midline. Absent: lymphadenopathy - Respiratory Respiratory exam: Present: CTAB. Absent: accessory muscle use, rales, rhonchi, wheezes - Cardiovascular Cardiovascular exam: Present: RRR, +S1, +S2. Absent: diastolic murmur, gallop, rubs, systolic murmur - GI/Abdominal GI/Abdominal exam: Present: normal bowel sounds, soft, no peritoneal signs. Absent: distended, tenderness - Extremities Exam Extremities exam: Present: warm, radial pulses palpable and symmetrical. Absen t: calf tenderness, cyanotic, pedal edema Additional comments: Right leg with a full-length Vernon wrap that is dry and intact and currently has a full-length immobilizer in place. Distal CV checks are normal. Right forearm and wrist has a immobilizer in place. Patient has a TLSO brace that she wears when up out of bed mobilizing due to her thoracic vertebrae fracture. No acute neurological deficits noted on exam - Neurological Exam Neurological exam: Present: CN II-XII intact, oriented X3, no focal deficits. Absent: pronater drift, facial droop, speech deficit - Skin Skin exam: Present: dry, intact - Constitutional Vitals: Temp Pulse Resp BP Pulse Ox 98.9 F 58 16 116/54 91 02/18/18 07:33 02/18/18 07:33 02/18/18 07:33 02/18/18 07:33 02/18/18 07:33 General appearance: Present: cooperative, A&O X 3, pleasant Internal Medicine: Result - Labs CBC & Chem 7: 02/15/18 06:00 02/15/18 06:00 Consult Discharge Plan - Plan Referrals: NONE,PCP [Primary Care Provider] -
--- NOTE | 2018-02-18 14:44 | Internal Med Progress Note ---
Date of Encounter: 02/18/18 Time of Encounter: 02:40 - Subjective Interval history: - Assessment and plan (1) Tibial plateau fracture complicated with prior infection and deconditioning Current Visit: Yes Status: Acute Assessment and plan: Improving area dressing changes show only slight serosang drainage. tissues are pink Pain still there but improving slowly pt progressing in therapy. No acute issues. Patient continues with mobilizer brace in place to right leg. . Patient continues on cefepime IV antibiotics due to her infected wound. Antibiotics being managed per infectious disease. Patient remains afebrile Pt was feeling chilled but improving today eating better Qualifiers: Encounter type: subsequent encounter Fracture type: closed Laterality: right Fracture healing: with routine healing Qualified Code(s): S82.141D - Displaced bicondylar fracture of right tibia, subsequent encounter for closed fracture with routine healing (2) Radial fracture Current Visit: Yes Status: Acute Assessment and plan: No acute issues. From trauma. Patient continues with immobilizer brace to right forearm and wrist. Distal CV normal. We will continue with current plan of care Qualifiers: Encounter type: subsequent encounter Radius location: shaft Fracture type: closed Fracture morphology: unspecified fracture morphology Laterality: right Fracture healing: with routine healing Qualified Code(s): S52.301D - Unspecified fracture of shaft of right radius, subsequent encounter for closed fracture with routine healing (3) Hypertension Current Visit: Yes Status: Chronic Assessment and plan: Vital signs show BP and pulse running low she is on coreg 12.5 bid will reduce this to 6.25 mg bid also continue losartin for now Qualifiers: Hypertension type: essential hypertension Qualified Code(s): I10 - Essential (primary) hypertension (4) Chronic kidney disease, stage III (moderate) Current Visit: Yes Status: Chronic Assessment and plan: No acute issues. stable CRE 1.4 Continue with current medications. We will continue with serial labs (5) Rib fractures Current Visit: Yes Status: Acute Assessment and plan: No acute issues. Patient with history of multiple rib fractures. Lungs are clear with no rales or crepitus noted. Qualifiers: Encounter type: subsequent encounter Rib fracture type: multiple ribs Fracture type: closed Laterality: bilateral Fracture healing: with routine healing Qualified Code(s): S22.43XD - Multiple fractures of ribs, bilateral, subsequent encounter for fracture with routine healing (6) Traumatic compression fracture of T8 thoracic vertebra Current Visit: Yes Status: Acute Assessment and plan: No acute issues. Patient continues use TLSO brace when out of bed. No acute neurological deficits noted on exam. We will continue with physical therapy. Qualifiers: Encounter type: subsequent encounter Fracture healing: with routine healing Qualified Code(s): S22.060D - Wedge compression fracture of T7-T8 vertebra, subsequent encounter for fracture with routine healing (7) Anemia MCV elevated will monitor and recheck CBC will add b12 oral check b12 and iron profile albumen was low has been taking protein will recheck and order prealbumen - Time Spent With Patient less than 15 minutes - Subjective Interval history: Patient doing much better talkative discomforts or shortness of breath. Patient states that physical therapy has been progressing well. Patient states that her pain has been currently well tolerated with current medications. Mood is improving. General appearance: Present: pleasant , A&O X 3, pleasant - Neck Neck exam general surgery: Present: supple, trachea midline. Absent: lymphadenopathy - Respiratory Respiratory exam: Present: CTAB. Absent: accessory muscle use, rales, rhonchi, wheezes - Cardiovascular Cardiovascular exam: Present: RRR, +S1, +S2. Absent: diastolic murmur, gallop, rubs, systolic murmur - GI/Abdominal GI/Abdominal exam: Present: normal bowel sounds, soft, no peritoneal signs. Absent: distended, tenderness - Extremities Exam Extremities exam: Present: warm, radial pulses palpable and symmetrical. Absent: calf tenderness, cyanotic, pedal edema Additional comments: Right leg with a full-length [place] wrap that is dry and intact and currently has a full-length immobilizer in place. Distal CV checks are normal. Right forearm and wrist has a immobilizer in place. Patient has a TLSO brace that she wears when up out of bed mobilizing due to her thoracic vertebrae fracture. No acute neurological deficits noted on exam - Neurological Exam Neurological exam: Present: CN II-XII intact, oriented X3, no focal deficits. Absent: pronater drift, facial droop, speech deficit - Skin Skin exam: Present: dry, intact - Constitutional Vitals: Temp Pulse Resp BP Pulse Ox 98.9 F 58 16 116/54 91 02/18/18 07:33 02/18/18 07:33 02/18/18 07:33 02/18/18 07:33 02/18/18 07:33 General appearance: Present: cooperative, A&O X 3, pleasant Internal Medicine: Result - Labs CBC & Chem 7: 02/15/18 06:00 02/15/18 06:00 Consult Discharge Plan - Plan Referrals: NONE,PCP [Primary Care Provider] -
[2018-02-18] MEDS: Latanoprost 2.5 ML BOTTLE BOTH EYES SCH (20:41)
[2018-02-18] MEDS: PROGESTERONE MICRONIZED 200 MG PO SCH (20:46)
[2018-02-19] MEDS: *HR* Enoxaparin 30 MG/0.3 ML SYRINGE SQ SCH ×2 (04:51→18:13)
[2018-02-19] MEDS: NATURE THROID 97.5 MG PO SCH (04:55)
[2018-02-19 05:18] LABS: Basophils % 0.5 %; Eosinophils # 0.2 K/mcL (0.0-0.6); Hematocrit 29.2 % (35.3-44.9); Immature Granulocytes % 0.5 % (0-4); Lymphocytes % 22.9 %; Mean Corpuscular HGB Conc 30.8 g/dL (31.6-35.5); Mean Corpuscular Hemoglobin 29.3 pg (28.0-33.3); Mean Corpuscular Volume 95.1 fL (83.0-100.0); Mean Platelet Volume 11.2 fL (9.4-12.4); Monocytes # 0.6 K/mcL (0.0-1.3); Monocytes % 12.9 %; Neutrophils # 2.6 K/mcL (1.6-8.9); Platelet Count 150 K/mcL (140-400); Red Blood Count 3.07 M/mcL (3.82-4.97); Segmented Neutrophils % 58.2 %
[2018-02-19 05:42] LABS: Albumin 2.8 g/dL (3.5-5.7); Albumin/Globulin Ratio 1.1 (1.1-2.2); Bilirubin,Direct 0.1 mg/dL (0.0-0.2); Bilirubin,Indirect 0.3 mg/dL (0.0-1.2); Bilirubin,Total 0.4 mg/dL (0.3-1.0); Calcium 9.7 mg/dL (8.6-10.3); Globulin 2.6 g/dL (2.4-3.5); Potassium 3.3 mEq/L (3.5-5.1); Total Protein 5.4 g/dL (6.4-8.9)
[2018-02-19 09:00] LABS: % Iron Saturation 8 % (15-50); Iron 23 mcg/dL (50-170); Transferrin 199 mg/dL (203-362)
[2018-02-19] MEDS: *HR* OxyCODONE Immed Rel 5 MG TABLET PO PRN ×4 (09:32→22:13)
[2018-02-19] MEDS: Ascorbic Acid 500 MG TABLET PO SCH ×2 (09:34→21:00)
[2018-02-19] MEDS: Furosemide 20 MG TABLET PO SCH (09:34)
[2018-02-19] MEDS: Multivit/Ca/Min/Fe/FA 1 TAB TABLET PO SCH (09:34)
[2018-02-19] MEDS: Verapamil ER (24 HR) 240 MG TABLET.ER PO SCH (09:34)
[2018-02-19] MEDS: Cyanocobalamin (B-12) 1,000 MCG TABLET PO SCH (09:34)
[2018-02-19] MEDS: Lactobacillus 1 EACH CAP.SPRINK PO SCH (09:34)
[2018-02-19] MEDS: Cefepime HCl 2,000 MG in Water for inj. (sterile) 20 ML 20 ML IVP SCH (09:35)
[2018-02-19] MEDS: Methocarbamol 750 MG TABLET PO PRN (13:08)
[2018-02-19] MEDS: ICAPS AREDS FORMULA PO SCH (14:02)
[2018-02-19] MEDS: NIACIN 500 MG PO SCH (14:02)
--- NOTE | 2018-02-19 14:58 | Internal Med Progress Note ---
Addendum entered and electronically signed by Shiva Dwyer DO 02/23/18 11:32: I have personally performed a face to face evaluation on this patient. I have reviewed and agree with the care plan. History and Exam by me shows: Original Note: Date of Encounter: 02/19/18 Time of Encounter: 14:57 - Assessment and plan (1) Radial fracture Current Visit: Yes Status: Acute Assessment and plan: Pain controlled. Healing. Follow up with ortho as scheduled. Qualifiers: Encounter type: subsequent encounter Radius location: shaft Fracture type: closed Fracture morphology: unspecified fracture morphology Laterality: right Fracture healing: with routine healing Qualified Code(s): S52.301D - Unspecified fracture of shaft of right radius, subsequent encounter for closed fracture with routine healing (2) Tibial plateau fracture Current Visit: Yes Status: Acute Assessment and plan: Pain controlled with oxycodone. Continue nonweightbearing status. Continue brace. Follow up with ortho as scheduled. Continue IV antibiotics. Qualifiers: Encounter type: subsequent encounter Fracture type: closed Laterality: right Fracture healing: with routine healing Qualified Code(s): S82.141D - Displaced bicondylar fracture of right tibia, subsequent encounter for closed fracture with routine healing (3) Hypertension Current Visit: Yes Status: Chronic Assessment and plan: Controlled with current medication. Monitor blood pressure. Qualifiers: Hypertension type: essential hypertension Qualified Code(s): I10 - Essential (primary) hypertension (4) Rib fractures Current Visit: Yes Status: Acute Assessment and plan: Pain controlled. Healing. Qualifiers: Encounter type: subsequent encounter Rib fracture type: multiple ribs Fracture type: closed Laterality: bilateral Fracture healing: with routine healing Qualified Code(s): S22.43XD - Multiple fractures of ribs, bilateral, subsequent encounter for fracture with routine healing (5) Traumatic compression fracture of T8 thoracic vertebra Current Visit: Yes Status: Acute Assessment and plan: Pain controlled. Wear TLSO brace. When up Qualifiers: Encounter type: subsequent encounter Fracture healing: with routine healing Qualified Code(s): S22.060D - Wedge compression fracture of T7-T8 vertebra, subsequent encounter for fracture with routine healing - Time Spent With Patient less than 15 minutes - Subjective Interval history: Participating well with therapy. Pain controlled. Scheduled to see infectious disease tomorrow. Still on IV antibiotics. Denies fever, chills, nausea vomiting or diarrhea. - Constitutional Vitals: Temp Pulse Resp BP Pulse Ox 98.5 F 60 16 132/59 94 02/19/18 07:34 02/19/18 07:34 02/19/18 07:34 02/19/18 07:34 02/19/18 07:34 General appearance: Present: cooperative, A&O X 3, pleasant - Head Head exam: Present: atraumatic, normocephalic - Eye Eye exam: Present: PERRL, conjuntiva pink, sclera anicteric Pupils: Present: PERRL - Neck Neck exam general surgery: Present: supple, trachea midline. Absent: lymphadenopathy - Respiratory Respiratory exam: Present: CTAB. Absent: accessory muscle use, rales, rhonchi, wheezes - Cardiovascular Cardiovascular exam: Present: RRR, +S1, +S2. Absent: diastolic murmur, gallop, rubs, systolic murmur - GI/Abdominal GI/Abdominal exam: Present: normal bowel sounds, soft, no peritoneal signs. Absent: distended, tenderness - Extremities Exam Extremities exam: Present: warm, radial pulses palpable and symmetrical. Absent: calf tenderness, cyanotic, pedal edema - Incison Comments: Right knee incision dressing dry and intact. - Neurological Exam Neurological exam: Present: CN II-XII intact, oriented X3, no focal deficits. Absent: pronater drift, facial droop, speech deficit - Skin Skin exam: Present: dry, intact Internal Medicine: Result - Labs CBC & Chem 7: 02/19/18 05:00 02/19/18 05:00 Labs: Short CBC 02/19/18 Range/Units 05:00 WBC 4.4 (4.3-11.1) K/mcL Hgb 9.0 L (11.5-15.4) g/dL Hct 29.2 L (35.3-44.9) % Plt Count 150 (140-400) K/mcL Neutrophils # 2.6 (1.6-8.9) K/mcL BMP 02/19/18 05:00 Sodium 139 Potassium 3.3 L Chloride 106 Carbon Dioxide 27 BUN 32 H Creatinine 1.44 H Glucose 111 H Calcium 9.7 Liver Function 02/19/18 Range/Units 05:00 Total Bilirubin 0.4 (0.3-1.0) mg/dL Direct Bilirubin 0.1 (0.0-0.2) mg/dL AST 16 (13-39) Units/L ALT 8 (7-52) Units/L Alkaline Phosphatase 81 (34-104) Units/L Albumin 2.8 L (3.5-5.7) g/dL Consult Discharge Plan - Plan Referrals: NONE,PCP [Primary Care Provider] -
[2018-02-19] MEDS: Latanoprost 2.5 ML BOTTLE BOTH EYES SCH (21:01)
[2018-02-19] MEDS: PROGESTERONE MICRONIZED 200 MG PO SCH (21:02)
[2018-02-20] MEDS: *HR* OxyCODONE Immed Rel 5 MG TABLET PO PRN ×5 (02:16→22:20)
[2018-02-20] MEDS: *HR* Enoxaparin 30 MG/0.3 ML SYRINGE SQ SCH ×2 (06:27→17:52)
[2018-02-20] MEDS: NATURE THROID 97.5 MG PO SCH (06:28)
[2018-02-20 07:12] LABS: Hematocrit 30.7 % (35.3-44.9); Hemoglobin 9.6 g/dL (11.5-15.4); Mean Corpuscular HGB Conc 31.3 g/dL (31.6-35.5); Mean Corpuscular Hemoglobin 29.5 pg (28.0-33.3); Mean Corpuscular Volume 94.5 fL (83.0-100.0); Mean Platelet Volume 10.8 fL (9.4-12.4); Platelet Count 147 K/mcL (140-400); Red Blood Count 3.25 M/mcL (3.82-4.97)
[2018-02-20] MEDS: Multivit/Ca/Min/Fe/FA 1 TAB TABLET PO SCH (09:42)
[2018-02-20] MEDS: Ascorbic Acid 500 MG TABLET PO SCH ×2 (09:42→22:19)
[2018-02-20] MEDS: Lactobacillus 1 EACH CAP.SPRINK PO SCH (09:42)
[2018-02-20] MEDS: Cyanocobalamin (B-12) 1,000 MCG TABLET PO SCH (09:42)
[2018-02-20] MEDS: Furosemide 20 MG TABLET PO SCH (09:42)
[2018-02-20] MEDS: Verapamil ER (24 HR) 240 MG TABLET.ER PO SCH (09:43)
[2018-02-20] MEDS: ICAPS AREDS FORMULA PO SCH (09:43)
[2018-02-20] MEDS: NIACIN 500 MG PO SCH (09:43)
[2018-02-20] MEDS: Cefepime HCl 2,000 MG in Water for inj. (sterile) 20 ML 20 ML IVP SCH (09:59)
[2018-02-20] MEDS: Ondansetron ODT 4 MG TAB.RAPDIS SL PRN (10:33)
--- NOTE | 2018-02-20 11:08 | Internal Med Progress Note ---
Addendum entered and electronically signed by Shiva Dwyer DO 02/23/18 11:33: I have personally performed a face to face evaluation on this patient. I have reviewed and agree with the care plan. History and Exam by me shows: Original Note: Date of Encounter: 02/20/18 Time of Encounter: 11:05 - Assessment and plan (1) Radial fracture Current Visit: Yes Status: Acute Assessment and plan: Pain controlled. Healing. Follow up with ortho as scheduled. Qualifiers: Encounter type: subsequent encounter Radius location: shaft Fracture type: closed Fracture morphology: unspecified fracture morphology Laterality: right Fracture healing: with routine healing Qualified Code(s): S52.301D - Unspecified fracture of shaft of right radius, subsequent encounter for closed fracture with routine healing (2) Tibial plateau fracture Current Visit: Yes Status: Acute Assessment and plan: Pain controlled with oxycodone. Continue nonweightbearing status. Continue brace. Follow up with ortho as scheduled. Continue IV antibiotics. Qualifiers: Encounter type: subsequent encounter Fracture type: closed Laterality: right Fracture healing: with routine healing Qualified Code(s): S82.141D - Displaced bicondylar fracture of right tibia, subsequent encounter for closed fracture with routine healing (3) Hypertension Current Visit: Yes Status: Chronic Assessment and plan: Controlled with current medication. Monitor blood pressure. Qualifiers: Hypertension type: essential hypertension Qualified Code(s): I10 - Essential (primary) hypertension (4) Rib fractures Current Visit: Yes Status: Acute Assessment and plan: Pain controlled. Healing. Qualifiers: Encounter type: subsequent encounter Rib fracture type: multiple ribs Fracture type: closed Laterality: bilateral Fracture healing: with routine healing Qualified Code(s): S22.43XD - Multiple fractures of ribs, bilateral, subsequent encounter for fracture with routine healing (5) Traumatic compression fracture of T8 thoracic vertebra Current Visit: Yes Status: Acute Assessment and plan: Pain controlled. Wear TLSO brace. When up Qualifiers: Encounter type: subsequent encounter Fracture healing: with routine healing Qualified Code(s): S22.060D - Wedge compression fracture of T7-T8 vertebra, subsequent encounter for fracture with routine healing - Time Spent With Patient less than 15 minutes - Subjective Interval history: Participating well with therapy. Pain controlled. Scheduled to see infectious disease today. Still on IV antibiotics. BUN and Creatinine elevated. Denies fever, chills, nausea vomiting or diarrhea. - Constitutional Vitals: Temp Pulse Resp BP Pulse Ox 97.5 F L 58 16 119/51 95 02/20/18 07:37 02/20/18 07:37 02/20/18 07:37 02/20/18 07:37 02/20/18 07:37 General appearance: Present: cooperative, A&O X 3, pleasant, no acute distress, answers questions appropriately - Head Head exam: Present: atraumatic, normocephalic - Eye Eye exam: Present: PERRL, conjuntiva pink, sclera anicteric Pupils: Present: PERRL - Neck Neck exam general surgery: Present: supple, trachea midline. Absent: lymphadenopathy - Respiratory Respiratory exam: Present: CTAB. Absent: accessory muscle use, rales, rhonchi, wheezes - Cardiovascular Cardiovascular exam: Present: RRR, +S1, +S2. Absent: diastolic murmur, gallop, rubs, systolic murmur - GI/Abdominal GI/Abdominal exam: Present: normal bowel sounds, soft, no peritoneal signs. Absent: distended, tenderness - Extremities Exam Extremities exam: Present: warm, radial pulses palpable and symmetrical. Absent: calf tenderness, cyanotic, pedal edema - Incison Comments: right knee drsg dry and intact. no redness or drainage. - Neurological Exam Neurological exam: Present: CN II-XII intact, oriented X3, no focal deficits. Absent: pronater drift, facial droop, speech deficit - Skin Skin exam: Present: dry, intact Internal Medicine: Result - Labs CBC & Chem 7: 02/20/18 06:56 02/19/18 05:00 Labs: Short CBC 02/20/18 Range/Units 06:56 WBC 4.4 (4.3-11.1) K/mcL Hgb 9.6 L (11.5-15.4) g/dL Hct 30.7 L (35.3-44.9) % Plt Count 147 (140-400) K/mcL Consult Discharge Plan - Plan Referrals: NONE,PCP [Primary Care Provider] -
[2018-02-20] MEDS: Latanoprost 2.5 ML BOTTLE BOTH EYES SCH (22:22)
[2018-02-20] MEDS: PROGESTERONE MICRONIZED 200 MG PO SCH (22:23)
[2018-02-21] MEDS: *HR* OxyCODONE Immed Rel 5 MG TABLET PO PRN ×5 (05:46→22:06)
[2018-02-21] MEDS: NATURE THROID 97.5 MG PO SCH (05:48)
[2018-02-21] MEDS: *HR* Enoxaparin 30 MG/0.3 ML SYRINGE SQ SCH ×2 (05:49→18:15)
[2018-02-21 06:11] LABS: Hematocrit 29.4 % (35.3-44.9); Hemoglobin 9.1 g/dL (11.5-15.4); Mean Corpuscular Hemoglobin 29.4 pg (28.0-33.3); Mean Corpuscular Volume 94.8 fL (83.0-100.0); Mean Platelet Volume 10.8 fL (9.4-12.4); Platelet Count 152 K/mcL (140-400); Red Cell Distribution Width 16.1 % (11.5-14.5)
[2018-02-21] MEDS: Lactobacillus 1 EACH CAP.SPRINK PO SCH (10:07)
[2018-02-21] MEDS: Multivit/Ca/Min/Fe/FA 1 TAB TABLET PO SCH (10:07)
[2018-02-21] MEDS: Furosemide 20 MG TABLET PO SCH (10:07)
[2018-02-21] MEDS: Cyanocobalamin (B-12) 1,000 MCG TABLET PO SCH (10:09)
[2018-02-21] MEDS: Verapamil ER (24 HR) 240 MG TABLET.ER PO SCH (10:09)
[2018-02-21] MEDS: Ascorbic Acid 500 MG TABLET PO SCH ×2 (10:11→21:13)
[2018-02-21] MEDS: ICAPS AREDS FORMULA PO SCH (10:13)
[2018-02-21] MEDS: NIACIN 500 MG PO SCH (10:13)
[2018-02-21] MEDS: Cefepime HCl 2,000 MG in Water for inj. (sterile) 20 ML 20 ML IVP SCH (10:28)
--- NOTE | 2018-02-21 13:17 | Rehab Psychology Progress Note ---
Date of Encounter: 02/21/18 Time of Encounter: 11:30 Subjective - Patient Report Patient Report: Pt expressed frustration with situation. Son was present and we discussed hospital cpurse and potential discharge. She noted desire to be in more "control" of situation and needs. 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 She reports mood as "little anxious" . Affect was slightly irritable. Objective - WHODAS Functional Impairment Concentration, Problem-solving, Communication: Mild Social Functioning: Mild - Comments Functional Status Comments: Concerned with mobility with braces and needs for home modifications. Son notes attention, concentration, and memory changes since injury but feels it is due to pain levels and pain meds. Discussed concerns about mild head injury R/O and even though she did not hit head her brain could have been insulted with coup contra coup. They were told if problems continue once home and off meds they are to call back in for eval. Assessment and Plan - Diagnosis (1) Adjustment disorder with anxiety - Response to Treatment Response to Treatment: No Change - Prognosis Prognosis: Good - Treatment Plan Treatment Plan Recommendations: Change Treatment Plan/Goals Changes in Treatment Plan Goals: Discussed setting up a calendar with dates for dc and other important events (home visit). Make list of "to Do" so she can see what needs to occur to move forward and take an active role in process. Procedures - Intervention Interventions: Cognitive/Behavioral Therapy - Modality Modality: Psychotherapy 30 minutes - Participants Therapy Participant: Family - Session Time Session Start Time: 11:30 Session Stop Time: 12:00
--- NOTE | 2018-02-21 14:14 | Internal Med Progress Note ---
Date of Encounter: 02/21/18 Time of Encounter: 13:00 - Assessment and plan (1) Rib fractures Current Visit: Yes Status: Acute Qualifiers: Encounter type: subsequent encounter Rib fracture type: multiple ribs Fracture type: closed Laterality: bilateral Fracture healing: with routine healing Qualified Code(s): S22.43XD - Multiple fractures of ribs, bilateral, subsequent encounter for fracture with routine healing (2) Tibial plateau fracture Current Visit: Yes Status: Acute Qualifiers: Encounter type: subsequent encounter Fracture type: closed Laterality: right Fracture healing: with routine healing Qualified Code(s): S82.141D - Displaced bicondylar fracture of right tibia, subsequent encounter for closed fracture with routine healing (3) Traumatic compression fracture of T8 thoracic vertebra Current Visit: Yes Status: Acute Qualifiers: Encounter type: subsequent encounter Fracture healing: with routine healing Qualified Code(s): S22.060D - Wedge compression fracture of T7-T8 vertebra, subsequent encounter for fracture with routine healing (4) Chronic kidney disease, stage III (moderate) Current Visit: Yes Status: Chronic - Constitutional Vitals: Temp Pulse Resp BP Pulse Ox 98.6 F 55 16 114/47 95 02/21/18 07:21 02/21/18 07:21 02/21/18 07:21 02/21/18 07:21 02/21/18 07:21 General appearance: Present: cooperative, A&O X 3, pleasant, no acute distress, answers questions appropriately - Head Head exam: Present: atraumatic, normocephalic - Respiratory Respiratory exam: Present: CTAB. Absent: accessory muscle use, rales, rhonchi, wheezes - Cardiovascular Cardiovascular exam: Present: RRR, +S1, +S2. Absent: diastolic murmur, gallop, rubs, systolic murmur Internal Medicine: Result - Labs CBC & Chem 7: 02/21/18 06:00 02/19/18 05:00 Labs: Short CBC 02/21/18 Range/Units 06:00 WBC 4.6 (4.3-11.1) K/mcL Hgb 9.1 L (11.5-15.4) g/dL Hct 29.4 L (35.3-44.9) % Plt Count 152 (140-400) K/mcL Consult Discharge Plan - Plan Referrals: NONE,PCP [Primary Care Provider] -
[2018-02-21] MEDS: Latanoprost 2.5 ML BOTTLE BOTH EYES SCH (21:14)
[2018-02-21] MEDS: PROGESTERONE MICRONIZED 200 MG PO SCH (21:16)
[2018-02-22] MEDS: *HR* Enoxaparin 30 MG/0.3 ML SYRINGE SQ SCH (06:00)
[2018-02-22] MEDS ORDERED: *HR* Enoxaparin 30 MG/0.3 ML SYRINGE SQ SCH (06:00)
[2018-02-22] MEDS: *HR* OxyCODONE Immed Rel 5 MG TABLET PO PRN ×4 (06:01→22:56)
[2018-02-22] MEDS: NATURE THROID 97.5 MG PO SCH (06:02)
[2018-02-22] MEDS: Cefepime HCl 2,000 MG in Water for inj. (sterile) 20 ML 20 ML IVP SCH (09:42)
[2018-02-22] MEDS: Cyanocobalamin (B-12) 1,000 MCG TABLET PO SCH (09:43)
[2018-02-22] MEDS: Lactobacillus 1 EACH CAP.SPRINK PO SCH (09:43)
[2018-02-22] MEDS: Ascorbic Acid 500 MG TABLET PO SCH ×2 (09:43→22:55)
[2018-02-22] MEDS: NIACIN 500 MG PO SCH (09:44)
[2018-02-22] MEDS: ICAPS AREDS FORMULA PO SCH (09:44)
[2018-02-22] MEDS: Multivit/Ca/Min/Fe/FA 1 TAB TABLET PO SCH (09:44)
[2018-02-22] MEDS: Verapamil ER (24 HR) 240 MG TABLET.ER PO SCH (09:45)
[2018-02-22] MEDS: Furosemide 20 MG TABLET PO SCH (09:46)
[2018-02-22] MEDS: 0.9 % Sodium Chloride 1,000 ML IVC SCH ×2 (11:34→21:51)
--- NOTE | 2018-02-22 12:46 | Internal Med Progress Note ---
Addendum entered and electronically signed by Shiva Dwyer DO 02/23/18 11:33: I have personally performed a face to face evaluation on this patient. I have reviewed and agree with the care plan. History and Exam by me shows: Original Note: Date of Encounter: 02/22/18 Time of Encounter: 12:43 - Assessment and plan (1) Tibial plateau fracture Current Visit: Yes Status: Acute Assessment and plan: No acute issues. Patient continues with mobilizer brace in place to right leg. Dressing to leg remains dry and intact. Antibiotics being managed per infectious disease, which has been reduced recently due to patient's increased creatinine. Patient remains afebrile. Patient states that physical therapy has been progressing well. Patient states that her pain has been well-controlled with current medications. Qualifiers: Encounter type: subsequent encounter Fracture type: closed Laterality: right Fracture healing: with routine healing Qualified Code(s): S82.141D - Displaced bicondylar fracture of right tibia, subsequent encounter for closed fracture with routine healing (2) Radial fracture Current Visit: Yes Status: Acute Assessment and plan: No acute issues. Patient continues with immobilizer brace to right forearm and wrist. Distal CV normal. We will continue with current plan of care Qualifiers: Encounter type: subsequent encounter Radius location: shaft Fracture type: closed Fracture morphology: unspecified fracture morphology Laterality: right Fracture healing: with routine healing Qualified Code(s): S52.301D - Unspecified fracture of shaft of right radius, subsequent encounter for closed fracture with routine healing (3) Hypertension Current Visit: Yes Status: Chronic Assessment and plan: Patient's systolic blood pressure has been somewhat low over past 24 hours. His recent systolic blood pressure was 88. Suspect patient to be somewhat clinically dry due to her compression of not drinking fluids to avoid urination and recent increase in creatinine and BUNs. We will hold Lasix for today. We will give half dose of Coreg at 3.125 for today. We will hold Cozaar for today. We will continue on verapamil. We will give patient gentle rehydration with IV fluid 1 L Qualifiers: Hypertension type: essential hypertension Qualified Code(s): I10 - Essential (primary) hypertension (4) Chronic kidney disease, stage III (moderate) Current Visit: Yes Status: Chronic Assessment and plan: Most recent creatinine at 1.44. Remains slightly elevated. Patient also possibly clinically dry. We will hold Lasix for today and give gentle rehydration. We will recheck labs in the morning (5) Rib fractures Current Visit: Yes Status: Acute Assessment and plan: No acute issues. Patient with history of multiple rib fractures. Lungs are clear with no rales or crepitus noted. Qualifiers: Encounter type: subsequent encounter Rib fracture type: multiple ribs Fracture type: closed Laterality: bilateral Fracture healing: with routine healing Qualified Code(s): S22.43XD - Multiple fractures of ribs, bilateral, subsequent encounter for fracture with routine healing (6) Traumatic compression fracture of T8 thoracic vertebra Current Visit: Yes Status: Acute Assessment and plan: No acute issues. Patient continues use TLSO brace when out of bed. No acute neurological deficits noted on exam. We will continue with physical therapy. Qualifiers: Encounter type: subsequent encounter Fracture healing: with routine healing Qualified Code(s): S22.060D - Wedge compression fracture of T7-T8 vertebra, subsequent encounter for fracture with routine healing - Time Spent With Patient less than 15 minutes - Subjective Interval history: Patient appears relaxed and currently denies any discomforts or shortness of breath. Patient does complain of moderate malaise-type feeling. Nursing reports patient's blood pressure has been somewhat low systolically over the past 24 hours. Patient's last blood pressure was 88/47. Patient denies any chest discomfort or palpitations. Patient does state that she has not been taking oral fluids well, due to not wanting to have to urinate. Patient states when she has to urinate she has to get up out of bed to the restroom per therapy so she has been trying to reduce the frequency of urination. - Constitutional Vitals: Temp Pulse Resp BP Pulse Ox 98.5 F 61 17 88/47 95 02/22/18 08:05 02/22/18 08:05 02/22/18 08:05 02/22/18 08:05 02/22/18 08:05 General appearance: Present: cooperative, A&O X 3, pleasant, no acute distress, answers questions appropriately - Head Head exam: Present: atraumatic, normocephalic - Eye Eye exam: Present: PERRL, conjuntiva pink, sclera anicteric Pupils: Present: PERRL - Neck Neck exam general surgery: Present: supple, trachea midline. Absent: lymphadenopathy - Respiratory Respiratory exam: Present: CTAB. Absent: accessory muscle use, rales, rhonchi, wheezes - Cardiovascular Cardiovascular exam: Present: RRR, +S1, +S2. Absent: diastolic murmur, gallop, rubs, systolic murmur - GI/Abdominal GI/Abdominal exam: Present: normal bowel sounds, soft, no peritoneal signs. Absent: distended, tenderness - Extremities Exam Extremities exam: Present: normal capillary refill, normal inspection, warm, radial pulses palpable and symmetrical. Absent: calf tenderness, cyanotic, pedal edema Additional comments: Right leg remains in immobilizer with dressing to thigh remaining dry and intact. Right forearm remains in immobilizer. Distal CV within normal limits. - Neurological Exam Neurological exam: Present: CN II-XII intact, oriented X3, no focal deficits. Absent: pronater drift, facial droop, speech deficit - Skin Skin exam: Present: dry, intact Internal Medicine: Result - Labs CBC & Chem 7: 02/21/18 06:00 02/19/18 05:00 Consult Discharge Plan - Plan Referrals: NONE,PCP [Primary Care Provider] -
[2018-02-22 12:53] LABS: Albumin/Globulin Ratio 1.1 (1.1-2.2); Bilirubin,Total 0.4 mg/dL (0.3-1.0); Globulin 2.7 g/dL (2.4-3.5); Magnesium 2.5 mg/dL (1.6-2.6); Potassium 4.1 mEq/L (3.5-5.1); Total Protein 5.7 g/dL (6.4-8.9)
[2018-02-22] MEDS: PROGESTERONE MICRONIZED 200 MG PO SCH (22:55)
[2018-02-22] MEDS: Latanoprost 2.5 ML BOTTLE BOTH EYES SCH (22:56)
[2018-02-23] MEDS: *HR* OxyCODONE Immed Rel 5 MG TABLET PO PRN ×3 (05:36→21:24)
[2018-02-23] MEDS: *HR* Enoxaparin 30 MG/0.3 ML SYRINGE SQ SCH (05:36)
[2018-02-23] MEDS: NATURE THROID 97.5 MG PO SCH (05:36)
[2018-02-23] MEDS: 0.9 % Sodium Chloride 1,000 ML IVC SCH (07:03)
[2018-02-23] MEDS: Ascorbic Acid 500 MG TABLET PO SCH ×2 (12:25→21:23)
[2018-02-23] MEDS: Cyanocobalamin (B-12) 1,000 MCG TABLET PO SCH (12:25)
[2018-02-23] MEDS: Furosemide 20 MG TABLET PO SCH (12:26)
[2018-02-23] MEDS: Lactobacillus 1 EACH CAP.SPRINK PO SCH (12:26)
[2018-02-23] MEDS: Verapamil ER (24 HR) 240 MG TABLET.ER PO SCH (12:26)
[2018-02-23] MEDS: Multivit/Ca/Min/Fe/FA 1 TAB TABLET PO SCH (12:26)
[2018-02-23] MEDS: Cefepime HCl 2,000 MG in Water for inj. (sterile) 20 ML 20 ML IVP SCH (12:27)
[2018-02-23] MEDS: ICAPS AREDS FORMULA PO SCH (12:27)
[2018-02-23] MEDS: NIACIN 500 MG PO SCH (12:28)
[2018-02-23 12:29] LABS: Hematocrit 30.9 % (35.3-44.9); Hemoglobin 9.5 g/dL (11.5-15.4); Mean Corpuscular HGB Conc 30.7 g/dL (31.6-35.5); Mean Corpuscular Hemoglobin 29.1 pg (28.0-33.3); Mean Corpuscular Volume 94.5 fL (83.0-100.0); Mean Platelet Volume 10.3 fL (9.4-12.4); Platelet Count 139 K/mcL (140-400); Red Blood Count 3.27 M/mcL (3.82-4.97); Red Cell Distribution Width 15.5 % (11.5-14.5)
--- NOTE | 2018-02-23 12:51 | Internal Med Progress Note ---
Date of Encounter: 02/23/18 Time of Encounter: 12:48 - Assessment and plan (1) Tibial plateau fracture Current Visit: Yes Status: Acute Assessment and plan: No acute issues. Patient continues with mobilizer brace in place to right leg. Dressing to leg remains dry and intact. Antibiotics being managed per infectious disease, which has been reduced recently due to patient's increased creatinine. Patient remains afebrile. Patient states that physical therapy has been progressing well. Patient states that her pain has been well-controlled with current medications. Qualifiers: Encounter type: subsequent encounter Fracture type: closed Laterality: right Fracture healing: with routine healing Qualified Code(s): S82.141D - Displaced bicondylar fracture of right tibia, subsequent encounter for closed fracture with routine healing (2) Radial fracture Current Visit: Yes Status: Acute Assessment and plan: No acute issues. Patient continues with immobilizer brace to right forearm and wrist. Distal CV normal. We will continue with current plan of care Qualifiers: Encounter type: subsequent encounter Radius location: shaft Fracture type: closed Fracture morphology: unspecified fracture morphology Laterality: right Fracture healing: with routine healing Qualified Code(s): S52.301D - Unspecified fracture of shaft of right radius, subsequent encounter for closed fracture with routine healing (3) Hypertension Current Visit: Yes Status: Chronic Assessment and plan: Patient's vital signs have been stable today. We will discontinue fluids and continue with current medications Qualifiers: Hypertension type: essential hypertension Qualified Code(s): I10 - Essential (primary) hypertension (4) Chronic kidney disease, stage III (moderate) Current Visit: Yes Status: Chronic Assessment and plan: Patient received gentle hydration over the past 24 hours with current labs pending. We will currently discontinue IV fluids at this time. (5) Rib fractures Current Visit: Yes Status: Acute Assessment and plan: No acute issues. Patient with history of multiple rib fractures. Lungs are clear with no rales or crepitus noted. Qualifiers: Encounter type: subsequent encounter Rib fracture type: multiple ribs Fracture type: closed Laterality: bilateral Fracture healing: with routine healing Qualified Code(s): S22.43XD - Multiple fractures of ribs, bilateral, subsequent encounter for fracture with routine healing (6) Traumatic compression fracture of T8 thoracic vertebra Current Visit: Yes Status: Acute Assessment and plan: No acute issues. Patient continues use TLSO brace when out of bed. No acute neurological deficits noted on exam. We will continue with physical therapy. Qualifiers: Encounter type: subsequent encounter Fracture healing: with routine healing Qualified Code(s): S22.060D - Wedge compression fracture of T7-T8 vertebra, subsequent encounter for fracture with routine healing - Time Spent With Patient less than 15 minutes - Subjective Interval history: Patient currently appears relaxed and denies any discomforts or shortness of breath. - Constitutional Vitals: Temp Pulse Resp BP Pulse Ox 98.2 F 56 16 177/73 97 02/23/18 11:22 02/23/18 11:22 02/23/18 11:22 02/23/18 11:22 02/23/18 11:22 General appearance: Present: cooperative, A&O X 3, pleasant, no acute distress, answers questions appropriately - Head Head exam: Present: atraumatic, normocephalic - Eye Eye exam: Present: PERRL, conjuntiva pink, sclera anicteric Pupils: Present: PERRL - Neck Neck exam general surgery: Present: supple, trachea midline. Absent: lymphadenopathy - Respiratory Respiratory exam: Present: CTAB. Absent: accessory muscle use, rales, rhonchi, wheezes - Cardiovascular Cardiovascular exam: Present: RRR, +S1, +S2. Absent: diastolic murmur, gallop, rubs, systolic murmur - GI/Abdominal GI/Abdominal exam: Present: normal bowel sounds, soft, no peritoneal signs. Abs ent: distended, tenderness - Extremities Exam Extremities exam: Present: warm, radial pulses palpable and symmetrical. Absent: calf tenderness, cyanotic, pedal edema Additional comments: Right leg with dressing saturnine intact. Right leg with immobilizer in place. Right forearm with immobilizer in place. TLSO continued use for lumbar fracture - Neurological Exam Neurological exam: Present: CN II-XII intact, oriented X3, no focal deficits. Absent: pronater drift, facial droop, speech deficit - Skin Skin exam: Present: dry, intact Internal Medicine: Result - Labs CBC & Chem 7: 02/23/18 12:25 02/22/18 11:30 Labs: Short CBC 02/23/18 Range/Units 12:25 WBC 4.4 (4.3-11.1) K/mcL Hgb 9.5 L (11.5-15.4) g/dL Hct 30.9 L (35.3-44.9) % Plt Count 139 L (140-400) K/mcL BMP 02/22/18 11:30 Sodium 134 L Potassium 4.1 Chloride 102 Carbon Dioxide 25 BUN 49 H Creatinine 2.83 H Glucose 176 H Calcium 10.0 Liver Function 02/22/18 Range/Units 11:30 Total Bilirubin 0.4 (0.3-1.0) mg/dL AST 18 (13-39) Units/L ALT 10 (7-52) Units/L Alkaline Phosphatase 80 (34-104) Units/L Albumin 3.0 L (3.5-5.7) g/dL Consult Discharge Plan - Plan Referrals: NONE,PCP [Primary Care Provider] -
[2018-02-23 12:54] LABS: Albumin 3.1 g/dL (3.5-5.7); Albumin/Globulin Ratio 1.1 (1.1-2.2); Bilirubin,Total 0.4 mg/dL (0.3-1.0); Calcium 10.4 mg/dL (8.6-10.3); Globulin 2.8 g/dL (2.4-3.5); Magnesium 2.4 mg/dL (1.6-2.6); Potassium 3.9 mEq/L (3.5-5.1); Total Protein 5.9 g/dL (6.4-8.9)
[2018-02-23] MEDS: Latanoprost 2.5 ML BOTTLE BOTH EYES SCH (21:23)
[2018-02-23] MEDS: PROGESTERONE MICRONIZED 200 MG PO SCH (21:23)
[2018-02-24] MEDS: *HR* OxyCODONE Immed Rel 5 MG TABLET PO PRN ×3 (03:29→22:10)
[2018-02-24] MEDS: *HR* Enoxaparin 30 MG/0.3 ML SYRINGE SQ SCH (05:58)
[2018-02-24] MEDS: NATURE THROID 97.5 MG PO SCH (05:59)
[2018-02-24] MEDS: Furosemide 20 MG TABLET PO SCH (07:55)
[2018-02-24] MEDS: Cefepime HCl 2,000 MG in Water for inj. (sterile) 20 ML 20 ML IVP SCH (09:45)
[2018-02-24] MEDS: Ascorbic Acid 500 MG TABLET PO SCH ×2 (09:46→20:10)
[2018-02-24] MEDS: Multivit/Ca/Min/Fe/FA 1 TAB TABLET PO SCH (09:46)
[2018-02-24] MEDS: Lactobacillus 1 EACH CAP.SPRINK PO SCH (09:46)
[2018-02-24] MEDS: Verapamil ER (24 HR) 240 MG TABLET.ER PO SCH (09:46)
[2018-02-24] MEDS: NIACIN 500 MG PO SCH (09:51)
[2018-02-24] MEDS: ICAPS AREDS FORMULA PO SCH (09:51)
[2018-02-24] MEDS: Cyanocobalamin (B-12) 1,000 MCG TABLET PO SCH (09:51)
--- NOTE | 2018-02-24 11:07 | Internal Med Progress Note ---
Date of Encounter: 02/24/18 Time of Encounter: 12:20 - Subjective Interval history: - Assessment and plan (1) Tibial plateau fracture complicated with prior infection and deconditioning Current Visit: Yes Status: Acute Assessment and plan: Improving area dressing changes show only slight serosang drainage. tissues are pink Pain still there but improving slowly pt progressing in therapy. No acute issues. Patient continues with mobilizer brace in place to right leg. Patient continues on cefepime IV antibiotics due to her infected wound. Antibiotics being managed per infectious disease. Patient remains afebrile Pt feeling less cold recently and improving today eating better Qualifiers: Encounter type: subsequent encounter Fracture type: closed Laterality: right Fracture healing: with routine healing Qualified Code(s): S82.141D - Displaced bicondylar fracture of right tibia, subsequent encounter for closed fracture with routine healing (2) Radial fracture Current Visit: Yes Status: Acute Assessment and plan: No acute issues. From trauma. Patient continues with immobilizer brace to right forearm and wrist. Distal CV normal. We will continue with current plan of care Qualifiers: Encounter type: subsequent encounter Radius location: shaft Fracture typ e: closed Fracture morphology: unspecified fracture morphology Laterality: right Fracture healing: with routine healing Qualified Code(s): S52.301D - Unspecified fracture of shaft of right radius, subsequent encounter for closed fracture with routine healing (3) Hypertension Current Visit: Yes Status: Chronic Assessment and plan: Vital signs show BP and pulse running low she is on coreg 12.5 bid will reduce this to 6.25 mg bid also continue losartin for now Qualifiers: Hypertension type: essential hypertension Qualified Code(s): I10 - Essential (primary) hypertension (4) Chronic kidney disease, stage III (moderate) Current Visit: Yes Status: Chronic Assessment and plan: No acute issues. stable CRE 1.4 Continue with current medications. We will continue with serial labs (5) Rib fractures Current Visit: Yes Status: Acute Assessment and plan: No acute issues. Patient with history of multiple rib fractures. Lungs are clear with no rales or crepitus noted. Qualifiers: Encounter type: subsequent encounter Rib fracture type: multiple ribs Fracture type: closed Laterality: bilateral Fracture healing: with routine healing Qualified Code(s): S22.43XD - Multiple fractures of ribs, bilateral, subsequent encounter for fracture with routine healing (6) Traumatic compression fracture of T8 thoracic vertebra Current Visit: Yes Status: Acute Assessment and plan: No acute issues. Patient continues use TLSO brace when out of bed. No acute ne urological deficits noted on exam. We will continue with physical therapy. Qualifiers: Encounter type: subsequent encounter Fracture healing: with routine healing Qualified Code(s): S22.060D - Wedge compression fracture of T7-T8 vertebra, subsequent encounter for fracture with routine healing (7) Anemia MCV elevated will monitor and recheck CBC added b12 oral albumen was low has been taking protein - Time Spent With Patient less than 15 minutes - Subjective Interval history: Patient doing much better talkative discomforts or shortness of breath. Patient states that physical therapy has been progressing well. Patient states that her pain has been currently well tolerated with current medications. Mood is improving. General appearance: Present: pleasant , A&O X 3, pleasant - Neck Neck exam general surgery: Present: supple, trachea midline. Absent: lymphadenopathy - Respiratory Respiratory exam: Present: CTAB. Absent: accessory muscle use, rales, rhonchi, wheezes - Cardiovascular Cardiovascular exam: Present: RRR, +S1, +S2. Absent: diastolic murmur, gallop, rubs, systolic murmur - GI/Abdominal GI/Abdominal exam: Present: normal bowel sounds, soft, no peritoneal signs. Absent: distended, tenderness - Extremities Exam Extremities exam: Present: warm, radial pulses palpable and symmetrical. Absent: calf tenderness, cyanotic, pedal edema Additional comments: Right leg with a full-length [place] wrap that is dry and intact and currently has a full-length immobilizer in place. Distal CV checks are normal. Right forearm and wrist has a immobilizer in place. Patient has a TLSO brace that she wears when up out of bed mobilizing due to her thoracic vertebrae fracture. No acute neurological deficits noted on exam - Neurological Exam Neurological exam: Present: CN II-XII intact, oriented X3, no focal deficits. Absent: pronater drift, facial droop, speech deficit - Skin Skin exam: Present: dry, intact - Constitutional Vitals: Temp Pulse Resp BP Pulse Ox 98.5 F 60 16 103/48 97 02/24/18 06:00 02/24/18 06:00 02/24/18 06:00 02/24/18 06:00 02/24/18 06:00 General appearance: Present: cooperative, A&O X 3, pleasant, no acute distress, answers questions appropriately Internal Medicine: Result - Labs CBC & Chem 7: 02/23/18 12:25 02/23/18 12:25 Labs: Short CBC 02/23/18 Range/Units 12:25 WBC 4.4 (4.3-11.1) K/mcL Hgb 9.5 L (11.5-15.4) g/dL Hct 30.9 L (35.3-44.9) % Plt Count 139 L (140-400) K/mcL BMP 02/23/18 12:25 Sodium 138 Potassium 3.9 Chloride 107 Carbon Dioxide 23 BUN 49 H Creatinine 2.60 H Glucose 96 Calcium 10.4 H Liver Function 02/23/18 Range/Units 12:25 Total Bilirubin 0.4 (0.3-1.0) mg/dL AST 19 (13-39) Units/L ALT 12 (7-52) Units/L Alkaline Phosphatase 84 (34-104) Units/L Albumin 3.1 L (3.5-5.7) g/dL Consult Discharge Plan - Plan Referrals: NONE,PCP [Primary Care Provider] -
[2018-02-24] MEDS: Ondansetron ODT 4 MG TAB.RAPDIS SL PRN (17:52)
[2018-02-24 19:02] LABS: Bilirubin,Urine Negative (Negative); Blood,Urine Trace-lysed (Negative); Clarity,Urine Clear (Clear); Color,Urine Yellow (Yellow); Glucose,Urine (UA) Normal (Normal); Ketones,Urine Negative (Negative); Leukocyte Esterase,Urine Trace (Negative); Nitrite,Urine Negative (Negative); PH,Urine 6.5 pH Units (5.0-8.0); Protein,Urine 100 mg/dL (Neg-Trace); Urobilinogen,Urine Normal (Normal)
[2018-02-24 19:08] LABS: Squamous Epithelial Cell,Urine Few per lpf (None-Few)
[2018-02-24 19:09] LABS: RBC,Urine 0-3 per hpf (0-3)
[2018-02-24 19:10] LABS: Bacteria,Urine Few per hpf (None-Few); Hyaline Casts,Urine Few per lpf (None-Few); Yeast,Urine Few per hpf (None Seen)
[2018-02-24] MEDS: PROGESTERONE MICRONIZED 200 MG PO SCH (20:13)
[2018-02-24] MEDS: Latanoprost 2.5 ML BOTTLE BOTH EYES SCH (20:14)
[2018-02-24] MEDS: Psyllium 1 PACKET POWD.PACK PO SCH (20:20)
[2018-02-24] MEDS: Acetaminophen 325 MG TABLET PO PRN (20:24)
[2018-02-25] MEDS: *HR* OxyCODONE Immed Rel 5 MG TABLET PO PRN ×4 (04:44→21:21)
[2018-02-25] MEDS: *HR* Enoxaparin 30 MG/0.3 ML SYRINGE SQ SCH (05:24)
[2018-02-25] MEDS: NATURE THROID 97.5 MG PO SCH (05:25)
[2018-02-25 05:31] LABS: Calcium 10.5 mg/dL (8.6-10.3)
[2018-02-25] MEDS: Multivit/Ca/Min/Fe/FA 1 TAB TABLET PO SCH (08:46)
[2018-02-25] MEDS: Verapamil ER (24 HR) 240 MG TABLET.ER PO SCH (08:46)
[2018-02-25] MEDS: Ascorbic Acid 500 MG TABLET PO SCH ×2 (08:48→21:20)
[2018-02-25] MEDS: Cyanocobalamin (B-12) 1,000 MCG TABLET PO SCH (08:48)
[2018-02-25] MEDS: Lactobacillus 1 EACH CAP.SPRINK PO SCH (08:49)
[2018-02-25] MEDS: Cefepime HCl 2,000 MG in Water for inj. (sterile) 20 ML 20 ML IVP SCH (08:51)
[2018-02-25] MEDS: Psyllium 1 PACKET POWD.PACK PO SCH ×2 (08:52→21:25)
[2018-02-25] MEDS: ICAPS AREDS FORMULA PO SCH (08:53)
[2018-02-25] MEDS: NIACIN 500 MG PO SCH (08:53)
[2018-02-25] MEDS ORDERED: Furosemide 20 MG TABLET PO SCH (09:00)
--- NOTE | 2018-02-25 12:07 | Internal Med Progress Note ---
Addendum entered and electronically signed by Bret Saeed MD 02/25/18 14:38: No acute issues. Discussed renal insufficiency with her and . We will continue to monitor carefully. She is hopeful that she will soon get out of her right wrist brace and be able to bear some weight on her right leg. She has a home visit scheduled for tomorrow afternoon. Original Note: Date of Encounter: 02/25/18 Time of Encounter: 12:05 - Assessment and plan (1) Tibial plateau fracture Current Visit: Yes Status: Acute Assessment and plan: No acute issues. Patient continues with mobilizer brace in place to right leg. Dressing to leg remains dry and intact. Antibiotics being managed per infectious disease, which has been reduced recently due to patient's increased creatinine. Creatinine today remains slightly elevated at 2.58. Patient remains afebrile. Patient states that physical therapy has been progressing well. Patient states that her pain has been well-controlled with current medications. Qualifiers: Encounter type: subsequent encounter Fracture type: closed Laterality: right Fracture healing: with routine healing Qualified Code(s): S82.141D - Displaced bicondylar fracture of right tibia, subsequent encounter for closed fracture with routine healing (2) Radial fracture Current Visit: Yes Status: Acute Assessment and plan: No acute issues. Patient continues with immobilizer brace to right forearm and wrist. Distal CV normal. We will continue with current plan of care Qualifiers: Encounter type: subsequent encounter Radius location: shaft Fracture type: closed Fracture morphology: unspecified fracture morphology Laterality: right Fracture healing: with routine healing Qualified Code(s): S52.301D - Unspecified fracture of shaft of right radius, subsequent encounter for closed fracture with routine healing (3) Hypertension Current Visit: Yes Status: Chronic Assessment and plan: Patient's vital signs have been stable today. We will continue with current medications. We will DC Lasix due to patient's fluid status Qualifiers: Hypertension type: essential hypertension Qualified Code(s): I10 - Essential (primary) hypertension (4) Chronic kidney disease, stage III (moderate) Current Visit: Yes Status: Chronic Assessment and plan: Patient currently taking by mouth fluids well. Most recent labs showed continued elevated creatinine at 2.58 with a BUNs and 47. We will DC Lasix at this time. We will continue to follow serial labs (5) Rib fractures Current Visit: Yes Status: Acute Assessment and plan: No acute issues. Patient with history of multiple rib fractures. Lungs are clear with no rales or crepitus noted. Qualifiers: Encounter type: subsequent encounter Rib fracture type: multiple ribs Fracture type: closed Laterality: bilateral Fracture healing: with routine healing Qualified Code(s): S22.43XD - Multiple fractures of ribs, bilateral, subsequent encounter for fracture with routine healing (6) Traumatic compression fracture of T8 thoracic vertebra Current Visit: Yes Status: Acute Assessment and plan: No acute issues. Patient continues use TLSO brace when out of bed. No acute neurological deficits noted on exam. We will continue with physical therapy. Qualifiers: Encounter type: subsequent encounter Fracture healing: with routine healing Qualified Code(s): S22.060D - Wedge compression fracture of T7-T8 vertebra, subsequent encounter for fracture with routine healing - Time Spent With Patient less than 15 minutes - Subjective Interval history: Patient currently appears relaxed and denies any discomforts or shortness of breath. Patient states that physical therapy continues to progress well for her. Patient states that her pain has been well managed with current medications. - Constitutional Vitals: Temp Pulse Resp BP Pulse Ox 99.2 F 55 16 119/44 94 02/25/18 06:00 02/25/18 06:00 02/25/18 06:00 02/25/18 06:00 02/25/18 06:00 General appearance: Present: cooperative, A&O X 3, pleasant, no acute distress, answers questions appropriately - Head Head exam: Present: atraumatic, normocephalic - Eye Eye exam: Present: PERRL, conjuntiva pink, sclera anicteric Pupils: Present: PERRL - Neck Neck exam general surgery: Present: supple, trachea midline. Absent: lymphadenopathy - Respiratory Respiratory exam: Present: CTAB. Absent: accessory muscle use, rales, rhonchi, wheezes - Cardiovascular Cardiovascular exam: Present: RRR, +S1, +S2. Absent: diastolic murmur, gallop, rubs, systolic murmur - GI/Abdominal GI/Abdominal exam: Present: normal bowel sounds, soft, no peritoneal signs. Absent: distended, tenderness - Extremities Exam Extremities exam: Present: normal capillary refill, normal inspection, warm, radial pulses palpable and symmetrical. Absent: calf tenderness, cyanotic, pedal edema Additional comments: Right leg continues to be in full-length immobilizer. Dressings right leg are dry and intact. Patient has a immobilized to right forearm. Distal CV within normal limits - Neurological Exam Neurological exam: Present: CN II-XII intact, oriented X3, no focal deficits. Absent: pronater drift, facial droop, speech deficit - Skin Skin exam: Present: dry, intact Internal Medicine: Result - Labs CBC & Chem 7: 02/23/18 12:25 02/25/18 04:30 Labs: BMP 02/25/18 04:30 Sodium 140 Potassium 4.0 Chloride 108 H Carbon Dioxide 26 BUN 47 H Creatinine 2.58 H Glucose 89 Calcium 10.5 H Urine 02/24/18 Range/Units 18:55 Urine Color Yellow (Yellow) Urine Clarity Clear (Clear) Urine pH 6.5 (5.0-8.0) pH Units Ur Specific [place] 1.020 (1.010-1.025) Urine Protein 100 H (Neg-Trace) mg/dL Urine Glucose (UA) Normal (Normal) mg/dL Consult Discharge Plan - Plan Referrals: NONE,PCP [Primary Care Provider] -
[2018-02-25] MEDS: PROGESTERONE MICRONIZED 200 MG PO SCH (21:20)
[2018-02-25] MEDS: Latanoprost 2.5 ML BOTTLE BOTH EYES SCH (21:23)
[2018-02-26 06:18] LABS: Hemoglobin 8.8 g/dL (11.5-15.4); Mean Corpuscular HGB Conc 30.3 g/dL (31.6-35.5); Mean Corpuscular Hemoglobin 28.8 pg (28.0-33.3); Mean Corpuscular Volume 94.8 fL (83.0-100.0); Mean Platelet Volume 11.2 fL (9.4-12.4); Platelet Count 144 K/mcL (140-400); Red Blood Count 3.06 M/mcL (3.82-4.97); Red Cell Distribution Width 15.4 % (11.5-14.5)
[2018-02-26 06:30] LABS: Calcium 11.4 mg/dL (8.6-10.3); Potassium 4.1 mEq/L (3.5-5.1)
[2018-02-26] MEDS: *HR* Enoxaparin 30 MG/0.3 ML SYRINGE SQ SCH (06:42)
[2018-02-26] MEDS: NATURE THROID 97.5 MG PO SCH (06:42)
[2018-02-26] MEDS: *HR* OxyCODONE Immed Rel 5 MG TABLET PO PRN ×4 (06:43→20:38)
[2018-02-26] MEDS: Psyllium 1 PACKET POWD.PACK PO SCH ×2 (09:58→20:38)
--- NOTE | 2018-02-26 11:22 | Internal Med Progress Note ---
Addendum entered and electronically signed by Bret Saeed MD 02/27/18 12:20: Multiple attempts to see patient were unsuccessful because she was in physical therapy or with other providers. Original Note: Date of Encounter: 02/26/18 Time of Encounter: 11:18 - Assessment and plan (1) Radial fracture Current Visit: Yes Status: Acute Assessment and plan: Pain controlled. Healing. Follow up with ortho as scheduled. Continue brace Qualifiers: Encounter type: subsequent encounter Radius location: shaft Fracture type: closed Fracture morphology: unspecified fracture morphology Laterality: right Fracture healing: with routine healing Qualified Code(s): S52.301D - Unspecified fracture of shaft of right radius, subsequent encounter for closed fracture with routine healing (2) Tibial plateau fracture Current Visit: Yes Status: Acute Assessment and plan: Pain controlled with oxycodone. Continue nonweightbearing status. Continue brace. Follow up with ortho as scheduled. Continue IV antibiotics. Qualifiers: Encounter type: subsequent encounter Fracture type: closed Laterality: right Fracture healing: with routine healing Qualified Code(s): S82.141D - Displaced bicondylar fracture of right tibia, subsequent encounter for closed fracture with routine healing (3) Hypertension Current Visit: Yes Status: Chronic Assessment and plan: Controlled with current medication. Monitor blood pressure. Qualifiers: Hypertension type: essential hypertension Qualified Code(s): I10 - Essential (primary) hypertension (4) Rib fractures Current Visit: Yes Status: Acute Assessment and plan: Pain controlled. Healing. Qualifiers: Encounter type: subsequent encounter Rib fracture type: multiple ribs Fracture type: closed Laterality: bilateral Fracture healing: with routine healing Qualified Code(s): S22.43XD - Multiple fractures of ribs, bilateral, subsequent encounter for fracture with routine healing (5) Traumatic compression fracture of T8 thoracic vertebra Current Visit: Yes Status: Acute Assessment and plan: Pain controlled. follow up with neuro as scheduled. Qualifiers: Encounter type: subsequent encounter Fracture healing: with routine healing Qualified Code(s): S22.060D - Wedge compression fracture of T7-T8 vertebra, subsequent encounter for fracture with routine healing - Time Spent With Patient less than 15 minutes - Subjective Interval history: Participating well with therapy. Pain controlled. on IV antibiotics. had some nausea this am. resolving now. Denies fever, chills, vomiting or diarrhea. scheduled to have home safety visit this afternoon. Bowels last moved yesterday. Maintaining appetite and hydration. - Constitutional Vitals: Temp Pulse Resp BP Pulse Ox 97.6 F 58 16 141/55 97 02/26/18 06:53 02/26/18 06:53 02/26/18 06:53 02/26/18 06:53 02/26/18 06:53 General appearance: Present: cooperative, A&O X 3, pleasant, no acute distress, answers questions appropriately - Head Head exam: Present: atraumatic, normocephalic - Eye Eye exam: Present: PERRL, conjuntiva pink, sclera anicteric Pupils: Present: PERRL - Neck Neck exam general surgery: Present: supple, trachea midline. Absent: lymphadenopathy - Respiratory Respiratory exam: Present: CTAB. Absent: accessory muscle use, rales, rhonchi, wheezes - Cardiovascular Cardiovascular exam: Present: RRR, +S1, +S2. Absent: diastolic murmur, gallop, rubs, systolic murmur - GI/Abdominal GI/Abdominal exam: Present: normal bowel sounds, soft, no peritoneal signs. Absent: distended, tenderness - Extremities Exam Extremities exam: Present: warm, radial pulses palpable and symmetrical. Absent: calf tenderness, cyanotic, pedal edema - Incison Comments: Right tibial incision well approximated. No drainage. - Neurological Exam Neurological exam: Present: CN II-XII intact, oriented X3, no focal deficits. Absent: pronater drift, facial droop, speech deficit - Skin Skin exam: Present: dry, intact Internal Medicine: Result - Labs CBC & Chem 7: 02/26/18 05:25 02/26/18 05:25 Labs: Short CBC 02/26/18 Range/Units 05:25 WBC 3.1 L (4.3-11.1) K/mcL Hgb 8.8 L (11.5-15.4) g/dL Hct 29.0 L (35.3-44.9) % Plt Count 144 (140-400) K/mcL BMP 02/26/18 05:25 Sodium 140 Potassium 4.1 Chloride 107 Carbon Dioxide 28 BUN 48 H Creatinine 2.52 H Glucose 91 Calcium 11.4 H Consult Discharge Plan - Plan Referrals: NONE,PCP [Primary Care Provider] -
[2018-02-26] MEDS: Cefepime HCl 2,000 MG in Water for inj. (sterile) 20 ML 20 ML IVP SCH (12:58)
[2018-02-26] MEDS: Lactobacillus 1 EACH CAP.SPRINK PO SCH (12:58)
[2018-02-26] MEDS: NIACIN 500 MG PO SCH (12:58)
[2018-02-26] MEDS: Verapamil ER (24 HR) 240 MG TABLET.ER PO SCH (12:58)
[2018-02-26] MEDS: Ascorbic Acid 500 MG TABLET PO SCH ×2 (12:59→20:38)
[2018-02-26] MEDS: Multivit/Ca/Min/Fe/FA 1 TAB TABLET PO SCH (12:59)
[2018-02-26] MEDS: Cyanocobalamin (B-12) 1,000 MCG TABLET PO SCH (12:59)
[2018-02-26] MEDS: ICAPS AREDS FORMULA PO SCH (13:29)
[2018-02-26 14:42] LABS: Albumin 2.9 g/dL (3.5-5.7); Albumin/Globulin Ratio 1.2 (1.1-2.2); Bilirubin,Direct 0.1 mg/dL (0.0-0.2); Bilirubin,Indirect 0.2 mg/dL (0.0-1.2); Bilirubin,Total 0.3 mg/dL (0.3-1.0); Globulin 2.5 g/dL (2.4-3.5); Total Protein 5.4 g/dL (6.4-8.9)
[2018-02-26] MEDS: Ondansetron ODT 4 MG TAB.RAPDIS SL PRN (17:25)
[2018-02-26] MEDS: Latanoprost 2.5 ML BOTTLE BOTH EYES SCH (20:34)
[2018-02-26] MEDS: PROGESTERONE MICRONIZED 200 MG PO SCH (20:37)
[2018-02-27] MEDS: NATURE THROID 97.5 MG PO SCH (06:13)
[2018-02-27] MEDS: *HR* OxyCODONE Immed Rel 5 MG TABLET PO PRN ×4 (06:13→22:18)
[2018-02-27] MEDS: *HR* Enoxaparin 30 MG/0.3 ML SYRINGE SQ SCH (06:13)
[2018-02-27 06:50] LABS: Calcium 11.1 mg/dL (8.6-10.3); Potassium 4.2 mEq/L (3.5-5.1)
[2018-02-27] MEDS: Ondansetron ODT 4 MG TAB.RAPDIS SL PRN (09:32)
[2018-02-27] MEDS: Verapamil ER (24 HR) 240 MG TABLET.ER PO SCH (09:33)
[2018-02-27] MEDS: Lactobacillus 1 EACH CAP.SPRINK PO SCH (09:33)
[2018-02-27] MEDS: NIACIN 500 MG PO SCH (09:34)
[2018-02-27] MEDS: Ascorbic Acid 500 MG TABLET PO SCH ×2 (09:34→22:17)
[2018-02-27] MEDS: Psyllium 1 PACKET POWD.PACK PO SCH ×2 (09:34→22:16)
[2018-02-27] MEDS: Multivit/Ca/Min/Fe/FA 1 TAB TABLET PO SCH (09:34)
[2018-02-27] MEDS: Cyanocobalamin (B-12) 1,000 MCG TABLET PO SCH (09:34)
[2018-02-27] MEDS: Cefepime HCl 2,000 MG in Water for inj. (sterile) 20 ML 20 ML IVP SCH (09:49)
--- NOTE | 2018-02-27 10:02 | Internal Med Progress Note ---
Addendum entered and electronically signed by Bret Saeed MD 02/27/18 12:48: I have personally performed a face to face evaluation on this patient. I have r eviewed and agree with the care plan. History and Exam by me shows: Patient is doing well except for nausea with eating. Nursing feels that she is far too supine when she tries to eat and we have encouraged her to set up. She states that she is sitting up and this is only about the decrease. I encouraged her to get as close to 90 degrees as possible. Nursing and I discussed her home-going plans for day #. Because she is not able to take narcotics, the patient is given a prescription for 3 pills of Roxicodone 10 mg every 4 hours when necessary. Discussed care with other providers and/or nursing. Patient has no complaint of chest discomfort, dyspnea, orthopnea, palpitations, nausea or vomiting, constipation or diarrhea, other changes in bowel habits, difficulty with urination, rash or itching, or other new complaints, except as mentioned above. Review of systems is otherwise negative. Examination: (Except as mentioned above): General: In no apparent distress. Alert and oriented 3. Nondiaphoretic. Head: Atraumatic and normocephalic. Respiratory: No use of accessory muscles. Lungs are clear throughout. Normal airflow. Cardiovascular: Regular rate and rhythm without murmur appreciated. Abdomen: Bowel sounds are normal. The abdomen is soft without hepatosplenomegaly, mass, or tenderness. Extremities: No cyanosis clubbing or edema. Skin: Warm and non-diaphoretic with no new lesions noted. Original Note: Date of Encounter: 02/27/18 Time of Encounter: 10:00 - Assessment and plan (1) Radial fracture Current Visit: Yes Status: Acute Assessment and plan: Pain controlled. Healing. Follow up with ortho as scheduled. Continue brace Qualifiers: Encounter type: subsequent encounter Radius location: shaft Fracture type: closed Fracture morphology: unspecified fracture morphology Laterality: right Fracture healing: with routine healing Qualified Code(s): S52.301D - Unspecified fracture of shaft of right radius, subsequent encounter for closed fracture with routine healing (2) Tibial plateau fracture Current Visit: Yes Status: Acute Assessment and plan: Pain controlled with oxycodone. Continue nonweightbearing status. Continue brace. Follow up with ortho as scheduled. Continue IV antibiotics. Qualifiers: Encounter type: subsequent encounter Fracture type: closed Laterality: right Fracture healing: with routine healing Qualified Code(s): S82.141D - Displaced bicondylar fracture of right tibia, subsequent encounter for closed fracture with routine healing (3) Hypertension Current Visit: Yes Status: Chronic Assessment and plan: Controlled with current medication. Monitor blood pressure. Qualifiers: Hypertension type: essential hypertension Qualified Code(s): I10 - Essential (primary) hypertension (4) Rib fractures Current Visit: Yes Status: Acute Assessment and plan: Pain controlled. Healing. Qualifiers: Encounter type: subsequent encounter Rib fracture type: multiple ribs Fracture type: closed Laterality: bilateral Fracture healing: with routine healing Qualified Code(s): S22.43XD - Multiple fractures of ribs, bilateral, subsequent encounter for fracture with routine healing (5) Traumatic compression fracture of T8 thoracic vertebra Current Visit: Yes Status: Acute Assessment and plan: Pain controlled. follow up with neuro as scheduled. Qualifiers: Encounter type: subsequent encounter Fracture healing: with routine healing Qualified Code(s): S22.060D - Wedge compression fracture of T7-T8 vertebra, subsequent encounter for fracture with routine healing (6) Chronic kidney disease, stage III (moderate) Current Visit: Yes Status: Chronic Assessment and plan: Creatinine 2.44. Labs reported to infectious disease. They recommended IV fluids ordered. Will order 2 L normal saline. Repeat and follow labs. Avoid any nephrotoxic agents. - Time Spent With Patient less than 15 minutes - Subjective Interval history: Participating well with therapy. Up in wheelchair at this time. Denies fever, chills, vomiting or diarrhea. Had a home safety visit yesterday that went well Bowels last moved yesterday. Maintaining appetite and hydration. - Constitutional Vitals: Temp Pulse Resp BP Pulse Ox 98.9 F 67 16 135/49 94 02/27/18 07:00 02/27/18 07:00 02/27/18 07:00 02/27/18 07:00 02/27/18 07:00 General appearance: Present: cooperative, A&O X 3, pleasant, no acute distress, answers questions appropriately - Head Head exam: Present: atraumatic, normocephalic - Eye Eye exam: Present: PERRL, conjuntiva pink, sclera anicteric Pupils: Present: PERRL - Neck Neck exam general surgery: Present: supple, trachea midline. Absent: lymphadenopathy - Respiratory Respiratory exam: Present: CTAB. Absent: accessory muscle use, rales, rhonchi, wheezes - Cardiovascular Cardiovascular exam: Present: RRR, +S1, +S2. Absent: diastolic murmur, gallop, rubs, systolic murmur - GI/Abdominal GI/Abdominal exam: Present: normal bowel sounds, soft, no peritoneal signs. Absent: distended, tenderness - Extremities Exam Extremities exam: Present: warm, radial pulses palpable and symmetrical. Absent: calf tenderness, cyanotic, pedal edema Additional comments: Right lower extremity in brace. Right upper extremity in brace. - Neurological Exam Neurological exam: Present: CN II-XII intact, oriented X3, no focal deficits. Absent: pronater drift, facial droop, speech deficit - Skin Skin exam: Present: dry, intact Internal Medicine: Result - Labs CBC & Chem 7: 02/26/18 05:25 02/27/18 06:15 Labs: BMP 02/27/18 06:15 Sodium 139 Potassium 4.2 Chloride 108 H Carbon Dioxide 24 BUN 48 H Creatinine 2.44 H Glucose 93 Calcium 11.1 H Liver Function 02/26/18 Range/Units 05:25 Total Bilirubin 0.3 (0.3-1.0) mg/dL Direct Bilirubin 0.1 (0.0-0.2) mg/dL AST 15 (13-39) Units/L ALT 11 (7-52) Units/L Alkaline Phosphatase 68 (34-104) Units/L Albumin 2.9 L (3.5-5.7) g/dL Consult Discharge Plan - Plan Referrals: NONE,PCP [Primary Care Provider] -
[2018-02-27 10:21] LABS: Basophils % 0.8 %; Eosinophils # 0.2 K/mcL (0.0-0.6); Eosinophils % 8.4 %; Hematocrit 32.7 % (35.3-44.9); Lymphocytes # 0.9 K/mcL (0.6-4.6); Lymphocytes % 35.5 %; Mean Corpuscular HGB Conc 30.6 g/dL (31.6-35.5); Mean Corpuscular Hemoglobin 28.9 pg (28.0-33.3); Mean Corpuscular Volume 94.5 fL (83.0-100.0); Mean Platelet Volume 10.5 fL (9.4-12.4); Monocytes # 0.6 K/mcL (0.0-1.3); Monocytes % 22.3 %; Neutrophils # 0.8 K/mcL (1.6-8.9); Platelet Count 161 K/mcL (140-400); Red Blood Count 3.46 M/mcL (3.82-4.97); Red Cell Distribution Width 15.4 % (11.5-14.5)
[2018-02-27 10:40] LABS: Albumin 3.3 g/dL (3.5-5.7); Calcium 11.6 mg/dL (8.6-10.3); Phosphorous 3.9 mg/dL (2.7-4.5); Potassium 4.1 mEq/L (3.5-5.1)
[2018-02-27] MEDS: 0.9 % Sodium Chloride 1,000 ML IVC SCH (12:26)
[2018-02-27] MEDS: PROGESTERONE MICRONIZED 200 MG PO SCH (22:16)
[2018-02-27] MEDS: Latanoprost 2.5 ML BOTTLE BOTH EYES SCH (22:17)
[2018-02-28] MEDS: 0.9 % Sodium Chloride 1,000 ML IVC SCH (01:56)
[2018-02-28 06:27] LABS: Calcium 10.5 mg/dL (8.6-10.3); Potassium 3.9 mEq/L (3.5-5.1)
[2018-02-28] MEDS: *HR* Enoxaparin 30 MG/0.3 ML SYRINGE SQ SCH (06:37)
[2018-02-28] MEDS: *HR* OxyCODONE Immed Rel 5 MG TABLET PO PRN ×4 (06:37→21:29)
[2018-02-28] MEDS: NATURE THROID 97.5 MG PO SCH (06:38)
[2018-02-28] MEDS: Lactobacillus 1 EACH CAP.SPRINK PO SCH (08:05)
[2018-02-28] MEDS: Psyllium 1 PACKET POWD.PACK PO SCH ×2 (08:06→20:58)
[2018-02-28] MEDS: Ascorbic Acid 500 MG TABLET PO SCH ×2 (08:06→21:11)
[2018-02-28] MEDS: Verapamil ER (24 HR) 240 MG TABLET.ER PO SCH (08:06)
[2018-02-28] MEDS: Cyanocobalamin (B-12) 1,000 MCG TABLET PO SCH (08:06)
[2018-02-28] MEDS: Multivit/Ca/Min/Fe/FA 1 TAB TABLET PO SCH (08:06)
[2018-02-28] MEDS: NIACIN 500 MG PO SCH (08:06)
[2018-02-28] MEDS: Ondansetron ODT 4 MG TAB.RAPDIS SL PRN ×2 (10:10→16:40)
--- NOTE | 2018-02-28 10:56 | Rehab Psychology Progress Note ---
Date of Encounter: 02/28/18 Time of Encounter: 09:30 Subjective - Patient Report Patient Report: Pt was up in wheelchair and aware of surroundings. Stated I was not on her schedule and she had outside appointment in about half hour. She stated she feels in more control of her situation but anxious about all that is ahead of her- return to work vs retiring; moving in with new ; returning to home. Objective - WHODAS Functional Impairment Concentration, Problem-solving, Communication: Mild Social Functioning: None - Comments Functional Status Comments: Pt was able to divide attention -Tv on in background and able to sustain attention for our conversation. She reported anxiety with regard to future and we discussed coping with "1 day at a time". She stated she has a better understanding of therapy process after home visit. She stated home visit was overwhelming. - Mental Status Mental Status Changes: Oriented X3. Memory for past events good. Distractible when anxious. Easily overwhelmed. Assessment and Plan - Diagnosis (1) Adjustment disorder with anxiety - Response to Treatment Response to Treatment: Improved - Prognosis Prognosis: Good - Treatment Plan Treatment Plan Recommendations: Continue Current Plan/Goals Treatment Frequency: Will see next week to see how Thanksgiving went and monitor anxiety. Next Session Date: 03/07/18
--- NOTE | 2018-02-28 11:11 | Internal Med Progress Note ---
Date of Encounter: 02/28/18 Time of Encounter: 11:10 - Subjective Interval history: Tried to see patient multiple times before she left for her orthopedic follow- up. No visit today. - Constitutional Vitals: Temp Pulse Resp BP Pulse Ox 98.2 F 57 16 125/51 97 02/28/18 07:39 02/28/18 07:39 02/28/18 07:39 02/28/18 07:39 02/28/18 07:39 General appearance: Present: cooperative, A&O X 3, pleasant, no acute distress, answers questions appropriately Internal Medicine: Result - Labs CBC & Chem 7: 02/27/18 10:13 02/28/18 06:01 Labs: BMP 02/28/18 06:01 Sodium 141 Potassium 3.9 Chloride 110 H Carbon Dioxide 26 BUN 41 H Creatinine 2.39 H Glucose 94 Calcium 10.5 H Consult Discharge Plan - Plan Referrals: NONE,PCP [Primary Care Provider] -
[2018-02-28] MEDS: PROGESTERONE MICRONIZED 200 MG PO SCH (21:19)
[2018-02-28] MEDS: Latanoprost 2.5 ML BOTTLE BOTH EYES SCH (21:35)
[2018-03-01] MEDS: *HR* Enoxaparin 30 MG/0.3 ML SYRINGE SQ SCH (06:32)
[2018-03-01] MEDS: NATURE THROID 97.5 MG PO SCH (06:35)
[2018-03-01] MEDS: *HR* OxyCODONE Immed Rel 5 MG TABLET PO PRN ×2 (07:01→20:51)
[2018-03-01 07:32] LABS: Calcium 8.5 mg/dL (8.6-10.3); Potassium 3.1 mEq/L (3.5-5.1)
[2018-03-01] MEDS: Lactobacillus 1 EACH CAP.SPRINK PO SCH (07:52)
[2018-03-01] MEDS: Verapamil ER (24 HR) 240 MG TABLET.ER PO SCH (07:52)
[2018-03-01] MEDS: NIACIN 500 MG PO SCH (07:53)
[2018-03-01] MEDS: Multivit/Ca/Min/Fe/FA 1 TAB TABLET PO SCH (07:53)
[2018-03-01] MEDS: Cyanocobalamin (B-12) 1,000 MCG TABLET PO SCH (07:53)
[2018-03-01] MEDS: Ascorbic Acid 500 MG TABLET PO SCH ×2 (07:53→20:50)
[2018-03-01] MEDS: Psyllium 1 PACKET POWD.PACK PO SCH ×2 (07:54→20:50)
--- NOTE | 2018-03-01 10:51 | Internal Med Progress Note ---
Date of Encounter: 03/01/18 Time of Encounter: 10:00 - Subjective Interval history: Patient not here today; will see the patient tomorrow (patient should return here tonight). - Constitutional Vitals: Temp Pulse Resp BP Pulse Ox 98.7 F 77 18 122/86 95 03/01/18 08:00 03/01/18 08:00 03/01/18 08:00 03/01/18 08:00 03/01/18 08:00 Exam: Patient not here today (received a home pass for today). Will examine the patient tomorrow. Internal Medicine: Result - Labs CBC & Chem 7: 02/27/18 10:13 03/01/18 07:00 Labs: BMP 03/01/18 07:00 Sodium 142 Potassium 3.1 L Chloride 118 H Carbon Dioxide 22 L BUN 30 H Creatinine 1.85 H Glucose 74 Calcium 8.5 L Consult Discharge Plan - Plan Referrals: NONE,PCP [Primary Care Provider] -
[2018-03-01] MEDS: Latanoprost 2.5 ML BOTTLE BOTH EYES SCH (20:49)
[2018-03-01] MEDS: PROGESTERONE MICRONIZED 200 MG PO SCH (20:51)
[2018-03-02 05:16] LABS: Hematocrit 27.4 % (35.3-44.9); Mean Corpuscular HGB Conc 30.7 g/dL (31.6-35.5); Mean Corpuscular Volume 94.5 fL (83.0-100.0); Mean Platelet Volume 10.5 fL (9.4-12.4); Platelet Count 124 K/mcL (140-400); Red Cell Distribution Width 14.8 % (11.5-14.5)
[2018-03-02 05:24] LABS: Hemoglobin 8.4 g/dL (11.5-15.4)
[2018-03-02 05:36] LABS: Calcium 10.9 mg/dL (8.6-10.3); Potassium 4.4 mEq/L (3.5-5.1)
[2018-03-02 05:52] LABS: Eosinophils # 0.2 K/mcL (0.0-0.6); Monocytes # 0.3 K/mcL (0.0-1.3); Neutrophils # 0.4 K/mcL (1.6-8.9); Platelet Estimate Normal (Normal)
[2018-03-02] MEDS: *HR* Enoxaparin 30 MG/0.3 ML SYRINGE SQ SCH (06:06)
[2018-03-02] MEDS: NATURE THROID 97.5 MG PO SCH (06:06)
[2018-03-02] MEDS: *HR* OxyCODONE Immed Rel 5 MG TABLET PO PRN ×3 (07:33→20:44)
[2018-03-02] MEDS: Verapamil ER (24 HR) 240 MG TABLET.ER PO SCH (07:34)
[2018-03-02] MEDS: Ondansetron ODT 4 MG TAB.RAPDIS SL PRN ×2 (07:35→15:53)
[2018-03-02] MEDS: Cyanocobalamin (B-12) 1,000 MCG TABLET PO SCH ×2 (07:35→12:20)
[2018-03-02] MEDS: Lactobacillus 1 EACH CAP.SPRINK PO SCH (07:35)
[2018-03-02] MEDS: Multivit/Ca/Min/Fe/FA 1 TAB TABLET PO SCH ×2 (07:35→12:20)
[2018-03-02] MEDS: Psyllium 1 PACKET POWD.PACK PO SCH ×2 (07:36→20:39)
[2018-03-02] MEDS: NIACIN 500 MG PO SCH (07:36)
--- NOTE | 2018-03-02 09:56 | Internal Med Progress Note ---
Addendum entered and electronically signed by Diego Shore MD 03/02/18 13:06: I have personally performed a face to face evaluation on this patient. I have reviewed and agree with the care plan. Additional notes as below: Gen: A&Ox3, NAD. HEENT: NCAT. Neck: No palpable lymphadenopathy or thyromegaly. CV: RRR, S1S2. 2/6, systolic murmur appreciated. Capillary refill < 2 seconds. Pulm: CTAB. Abd: (+)BS. NDNT. Neuro: Generalized weakness, otherwise non-focal. Skin: No rash. Ext: RLE in brace. Patient is also now pancytopenic and severely neutropenic, though she does appear clinically well. We will continue to monitor the patient and keep ID updated (they approved initiating ciprofloxacin). In case the patient were to spike a fever or appear clinically ill, we will broaden antibiotics and consider transferring the patient. Will order CBC/d, BMP, reticulocyte count, and FOBT. Addendum entered and electronically signed by Charlie Fraire CNP 03/02/18 10:12: Patient's medical records were reviewed from infectious disease for her treatment of her osteomyelitis. Per medical records infectious disease plans to continue cefepime until March 14 and then continue on oral suppressive antibiotics with Bactrim or Cipro. Infectious disease is aware patient's cefepime has been on hold due to her creatinine clearance. Will start patient on oral Cipro and have nursing notify infectious disease with update to verify whether plan of care. Patient has follow-up appointment on March 08. Patient remains afebrile and surgical wound remains healthy. No signs of infectious process noted at this time. Original Note: Date of Encounter: 03/02/18 Time of Encounter: 09:54 - Assessment and plan (1) Tibial plateau fracture Current Visit: Yes Status: Acute Assessment and plan: No acute issues. Patient continues with mobilizer brace in place to right leg. Dressing to leg remains dry and intact. Antibiotics being managed per infectious disease, which has been on hold. No oral antibiotics were reordered. We will have nursing recheck with infectious disease physician to verify management of antibiotics. Creatinine today remains slightly elevated at 2.12. Noted continual decrease in WBC which currently is at 1.9. Patient remains afebrile. Patient states that physical therapy has been progressing well. Patient states that her pain has been well-controlled with current medications. Qualifiers: Encounter type: subsequent encounter Fracture type: closed Laterality: right Fracture healing: with routine healing Qualified Code(s): S82.141D - Displaced bicondylar fracture of right tibia, subsequent encounter for closed fracture with routine healing (2) Radial fracture Current Visit: Yes Status: Acute Assessment and plan: No acute issues. Immobilizer has been removed per orthopedics. All incision to forearm remains dry and intact. Distal CV normal. We will continue with cur rent plan of care Qualifiers: Encounter type: subsequent encounter Radius location: shaft Fracture type: closed Fracture morphology: unspecified fracture morphology Laterality : right Fracture healing: with routine healing Qualified Code(s): S52.301D - Unspecified fracture of shaft of right radius, subsequent encounter for closed fracture with routine healing (3) Hypertension Current Visit: Yes Status: Chronic Assessment and plan: Patient's vital signs have been stable today. We will continue with current medications. We will DC Lasix due to patient's fluid status Qualifiers: Hypertension type: essential hypertension Qualified Code(s): I10 - Esse ntial (primary) hypertension (4) Chronic kidney disease, stage III (moderate) Current Visit: Yes Status: Chronic Assessment and plan: Patient currently taking by mouth fluids well. Most recent labs showed continued elevated creatinine at 2.12. We will continue to follow serial labs (5) Rib fractures Current Visit: Yes Status: Acute Assessment and plan: No acute issues. Patient with history of multiple rib fractures. Lungs are clear with no rales or crepitus noted. Qualifiers: Encounter type: subsequent encounter Rib fracture type: multiple ribs Fracture type: closed Laterality: bilateral Fracture healing: with routine healing Qualified Code(s): S22.43XD - Multiple fractures of ribs, bilateral, subsequent encounter for fracture with routine healing (6) Traumatic compression fracture of T8 thoracic vertebra Current Visit: Yes Status: Acute Assessment and plan: No acute issues. Patient continues use TLSO brace when out of bed when necessary. No acute neurological deficits noted on exam. We will continue with physical therapy. Qualifiers: Encounter type: subsequent encounter Fracture healing: with routine healing Qualified Code(s): S22.060D - Wedge compression fracture of T7-T8 vertebra, subsequent encounter for fracture with routine healing - Time Spent With Patient less than 15 minutes - Subjective Interval history: Patient currently appears relaxed and denies any discomforts or shortness of breath. Patient states that physical therapy continues to progress well for her. Patient states that her pain has been well managed with current medications. Respiratory reports patient has been refusing most of her supplemental potassium, with patient stating that she feels the pills stick in her throat. - Constitutional Vitals: Temp Pulse Resp BP Pulse Ox 98.0 F 62 16 149/66 93 03/02/18 06:57 03/02/18 06:57 03/02/18 06:57 03/02/18 06:57 03/02/18 06:57 General appearance: Present: cooperative, A&O X 3, pleasant, no acute distress, answers questions appropriately - Head Head exam: Present: atraumatic, normocephalic - Eye Eye exam: Present: PERRL, conjuntiva pink, sclera anicteric Pupils: Present: PERRL - Neck Neck exam general surgery: Present: supple, trachea midline. Absent: lymphadenopathy - Respiratory Respiratory exam: Present: CTAB. Absent: accessory muscle use, rales, rhonchi, wheezes - Cardiovascular Cardiovascular exam: Present: RRR, +S1, +S2. Absent: diastolic murmur, gallop, rubs, systolic murmur - GI/Abdominal GI/Abdominal exam: Present: normal bowel sounds, soft, no peritoneal signs. Absent: distended, tenderness - Extremities Exam Extremities exam: Present: warm, radial pulses palpable and symmetrical. Absent: calf tenderness, cyanotic, pedal edema Additional comments: Right leg continues with Vernon wrap dressing that is dry and intact. Patient has full-length immobilizer to right leg. Right forearm with small incision that is dry and intact - Neurological Exam Neurological exam: Present: CN II-XII intact, oriented X3, no focal deficits. Absent: pronater drift, facial droop, speech deficit - Skin Skin exam: Present: dry, intact Internal Medicine: Result - Labs CBC & Chem 7: 03/02/18 05:10 03/02/18 05:10 Labs: Short CBC 03/02/18 Range/Units 05:10 WBC 1.9 L (4.3-11.1) K/mcL Hgb 8.4 L D (11.5-15.4) g/dL Hct 27.4 L (35.3-44.9) % Plt Count 124 L (140-400) K/mcL Neutrophils # 0.4 L (1.6-8.9) K/mcL BMP 03/02/18 05:10 Sodium 141 Potassium 4.4 D Chloride 111 H Carbon Dioxide 25 BUN 36 H Creatinine 2.12 H Glucose 85 Calcium 10.9 H Consult Discharge Plan - Plan Referrals: NONE,PCP [Primary Care Provider] -
[2018-03-02] MEDS: Ascorbic Acid 500 MG TABLET PO SCH ×2 (10:32→20:36)
[2018-03-02] MEDS: PROGESTERONE MICRONIZED 200 MG PO SCH (20:38)
[2018-03-02] MEDS: Latanoprost 2.5 ML BOTTLE BOTH EYES SCH (20:47)
[2018-03-03] MEDS: NATURE THROID 97.5 MG PO SCH (05:34)
[2018-03-03] MEDS: *HR* Enoxaparin 30 MG/0.3 ML SYRINGE SQ SCH (05:36)
[2018-03-03] MEDS: *HR* OxyCODONE Immed Rel 5 MG TABLET PO PRN ×2 (06:27→18:09)
[2018-03-03] MEDS: Ondansetron ODT 4 MG TAB.RAPDIS SL PRN ×2 (06:28→18:09)
[2018-03-03 06:45] LABS: Basophils % 1.2 %; Eosinophils # 0.1 K/mcL (0.0-0.6); Eosinophils % 6.6 %; Hemoglobin 8.9 g/dL (11.5-15.4); Immature Reticulocyte % 10.1 % (11.0-38.0); Lymphocytes % 57.5 %; Mean Corpuscular HGB Conc 30.7 g/dL (31.6-35.5); Mean Corpuscular Hemoglobin 28.9 pg (28.0-33.3); Mean Corpuscular Volume 94.2 fL (83.0-100.0); Mean Platelet Volume 11.5 fL (9.4-12.4); Monocytes # 0.5 K/mcL (0.0-1.3); Monocytes % 28.1 %; Neutrophils # 0.1 K/mcL (1.6-8.9); Platelet Count 130 K/mcL (140-400); Red Blood Count 3.08 M/mcL (3.82-4.97); Retculocyte # 0.03 M/mcL (0.05-0.10); Reticulocyte % 1.1 % (1.6-2.8)
[2018-03-03 07:29] LABS: Calcium 11.4 mg/dL (8.6-10.3)
[2018-03-03 08:40] LABS: Segmented Neutrophils % 6.6 %
[2018-03-03] MEDS: Ascorbic Acid 500 MG TABLET PO SCH ×2 (08:44→21:23)
[2018-03-03] MEDS: Verapamil ER (24 HR) 240 MG TABLET.ER PO SCH (08:44)
[2018-03-03] MEDS: Lactobacillus 1 EACH CAP.SPRINK PO SCH (08:44)
[2018-03-03] MEDS: NIACIN 500 MG PO SCH (08:45)
[2018-03-03] MEDS: Psyllium 1 PACKET POWD.PACK PO SCH ×2 (08:45→21:23)
--- NOTE | 2018-03-03 11:57 | Internal Med Progress Note ---
Date of Encounter: 03/03/18 Time of Encounter: 11:30 - Assessment and plan (1) Radial fracture Current Visit: Yes Status: Acute Assessment and plan: No acute issues. Immobilizer has been removed per orthopedics. All incision to forearm remains dry and intact. We will continue with current plan of care Qualifiers: Encounter type: subsequent encounter Radius location: shaft Fracture type: closed Fracture morphology: unspecified fracture morphology Laterality: right Fracture healing: with routine healing Qualified Code(s): S52.301D - Unspecified fracture of shaft of right radius, subsequent encounter for closed fracture with routine healing (2) Tibial plateau fracture Current Visit: Yes Status: Acute Assessment and plan: No acute issues. Patient continues with mobilizer brace in place to right leg. Dressing to leg remains dry and intact. Antibiotics being managed per infectious disease; currently on PO cipro. Creatinine today remains overall stable. Patient states that physical therapy has been progressing well. Patient states that her pain has been well-controlled with current medications. Qualifiers: Encounter type: subsequent encounter Fracture type: closed Laterality: right Fracture healing: with routine healing Qualified Code(s): S82.141D - Displaced bicondylar fracture of right tibia, subsequent encounter for closed fracture with routine healing (3) Hypertension Current Visit: Yes Status: Chronic Assessment and plan: Continue to monitor and adjust med(s) as appropriate. Qualifiers: Hypertension type: essential hypertension Qualified Code(s): I10 - Essential (primary) hypertension (4) Chronic kidney disease, stage III (moderate) Current Visit: Yes Status: Chronic Assessment and plan: Continue to monitor. (5) Rib fractures Current Visit: Yes Status: Acute Qualifiers: Encounter type: subsequent encounter Rib fracture type: multiple ribs Fracture type: closed Laterality: bilateral Fracture healing: with routine healing Qualified Code(s): S22.43XD - Multiple fractures of ribs, bilateral, subsequent encounter for fracture with routine healing (6) Traumatic compression fracture of T8 thoracic vertebra Current Visit: Yes Status: Acute Assessment and plan: No acute issues. Qualifiers: Encounter type: subsequent encounter Fracture healing: with routine healing Qualified Code(s): S22.060D - Wedge compression fracture of T7-T8 vertebra, subsequent encounter for fracture with routine healing (7) Pancytopenia Current Visit: Yes Status: Acute Assessment and plan: Platelets and Hb somewhat stable, but neutrophil counts (and WBC) continue to decline. Reticulocyte inappropriately low. Remains afebrile. Will involve hematology on Monday. In case the patient were to spike a fever or appear ill, we will broaden antibiotic coverage and consider transferring the patient. - Time Spent With Patient less than 15 minutes - Subjective Interval history: Doing well. Slept well last night. Did not notice blood in stool yesterday. Looking forward to visiting this afternoon. No concerns at this time. - Constitutional Vitals: Temp Pulse Resp BP Pulse Ox 98.1 F 58 17 152/62 92 03/03/18 07:53 03/03/18 07:53 03/03/18 07:53 03/03/18 07:53 03/03/18 07:53 General appearance: Present: cooperative, A&O X 3, pleasant, no acute distress, answers questions appropriately Exam: Gen: A&Ox3, NAD. HEENT: NCAT. Neck: No palpable lymphadenopathy or thyromegaly. CV: RRR, S1S2. 2/6, systolic murmur appreciated. Capillary refill < 2 seconds. Pulm: CTAB. Abd: (+)BS. NDNT. Neuro: Generalized weakness, otherwise non-focal. Skin: No rash. Ext: RLE in brace. Internal Medicine: Result - Labs CBC & Chem 7: 03/03/18 06:40 03/03/18 06:40 Labs: Short CBC 03/03/18 Range/Units 06:40 WBC 1.7 L (4.3-11.1) K/mcL Hgb 8.9 L (11.5-15.4) g/dL Hct 29.0 L (35.3-44.9) % Plt Count 130 L (140-400) K/mcL Neutrophils # 0.1 L (1.6-8.9) K/mcL BMP 03/03/18 06:40 Sodium 139 Potassium 4.0 Chloride 107 Carbon Dioxide 27 BUN 31 H Creatinine 2.09 H Glucose 88 Calcium 11.4 H Consult Discharge Plan - Plan Referrals: NONE,PCP [Primary Care Provider] -
[2018-03-03] MEDS: Multivit/Ca/Min/Fe/FA 1 TAB TABLET PO SCH (14:50)
[2018-03-03] MEDS: [UNRECOGNIZED DRUG - OTHER] PO SCH (14:50)
[2018-03-03] MEDS: Cyanocobalamin (B-12) 1,000 MCG TABLET PO SCH (14:50)
[2018-03-03] MEDS: Latanoprost 2.5 ML BOTTLE BOTH EYES SCH (21:23)
[2018-03-03] MEDS: PROGESTERONE MICRONIZED 200 MG PO SCH (21:23)
[2018-03-04 05:38] LABS: Eosinophils # 0.1 K/mcL (0.0-0.6); Hematocrit 28.8 % (35.3-44.9); Hemoglobin 8.8 g/dL (11.5-15.4); Mean Corpuscular HGB Conc 30.6 g/dL (31.6-35.5); Mean Corpuscular Hemoglobin 28.6 pg (28.0-33.3); Mean Corpuscular Volume 93.5 fL (83.0-100.0); Mean Platelet Volume 10.4 fL (9.4-12.4); Platelet Count 147 K/mcL (140-400); Red Blood Count 3.08 M/mcL (3.82-4.97); Red Cell Distribution Width 14.9 % (11.5-14.5)
[2018-03-04 05:53] LABS: Calcium 10.6 mg/dL (8.6-10.3); Potassium 3.9 mEq/L (3.5-5.1)
[2018-03-04] MEDS: *HR* Enoxaparin 30 MG/0.3 ML SYRINGE SQ SCH (05:56)
[2018-03-04] MEDS: NATURE THROID 97.5 MG PO SCH (05:56)
[2018-03-04 06:04] LABS: Lymphocytes # 1.3 K/mcL (0.6-4.6); Monocytes # 0.1 K/mcL (0.0-1.3); Neutrophils # 0.4 K/mcL (1.6-8.9); Platelet Estimate Normal (Normal)
[2018-03-04] MEDS: *HR* OxyCODONE Immed Rel 5 MG TABLET PO PRN ×2 (06:27→17:58)
[2018-03-04] MEDS: Ondansetron ODT 4 MG TAB.RAPDIS SL PRN ×2 (06:27→17:58)
[2018-03-04] MEDS: Lactobacillus 1 EACH CAP.SPRINK PO SCH (08:47)
[2018-03-04] MEDS: Ascorbic Acid 500 MG TABLET PO SCH ×2 (08:47→21:58)
[2018-03-04] MEDS: Verapamil ER (24 HR) 240 MG TABLET.ER PO SCH (08:47)
[2018-03-04] MEDS: Psyllium 1 PACKET POWD.PACK PO SCH ×2 (08:48→21:57)
[2018-03-04] MEDS: NIACIN 500 MG PO SCH (08:50)
--- NOTE | 2018-03-04 11:09 | Internal Med Progress Note ---
Date of Encounter: 03/04/18 Time of Encounter: 11:00 - Assessment and plan (1) Radial fracture Current Visit: Yes Status: Acute Assessment and plan: No acute issues. Immobilizer has been removed per orthopedics. We will continue with current plan of care Qualifiers: Encounter type: subsequent encounter Radius location: shaft Fracture type: closed Fracture morphology: unspecified fracture morphology [place]ality: right Fracture healing: with routine healing Qualified Code(s): S52.301D - Unspecified fracture of shaft of right radius, subsequent encounter for closed fracture with routine healing (2) Tibial plateau fracture Current Visit: Yes Status: Acute Assessment and plan: No acute issues. Patient continues with mobilizer brace in place to right leg. Dressing to leg remains dry and intact. Antibiotics being managed per infectious disease; currently on PO cipro. Creatinine today remains overall stable. Patient states that physical therapy has been progressing well. Patient states that her pain has been well-controlled with current medications. Qualifiers: Encounter type: subsequent encounter Fracture type: closed Laterality: right Fracture healing: with routine healing Qualified Code(s): S82.141D - Displaced bicondylar fracture of right tibia, subsequent encounter for closed fracture with routine healing (3) Hypertension Current Visit: Yes Status: Chronic Assessment and plan: BP has been running on the higher side. Will add amlodipine 5mg daily. Continue to monitor and adjust med(s) as appropriate. Qualifiers: Hypertension type: essential hypertension Qualified Code(s): I10 - Essential (primary) hypertension (4) Chronic kidney disease, stage III (moderate) Current Visit: Yes Status: Chronic Assessment and plan: Continue to monitor. (5) Rib fractures Current Visit: Yes Status: Acute Qualifiers: Encounter type: subsequent encounter Rib fracture type: multiple ribs Fracture type: closed Laterality: bilateral Fracture healing: with routine healing Qualified Code(s): S22.43XD - Multiple fractures of ribs, bilateral, subsequent encounter for fracture with routine healing (6) Traumatic compression fracture of T8 thoracic vertebra Current Visit: Yes Status: Acute Assessment and plan: No acute issues. Qualifiers: Encounter type: subsequent encounter Fracture healing: with routine healing Qualified Code(s): S22.060D - Wedge compression fracture of T7-T8 vertebra, subsequent encounter for fracture with routine healing (7) Pancytopenia Current Visit: Yes Status: Acute Assessment and plan: Platelets and Hb somewhat stable (platelets WNL today), but neutrophil counts (and WBC) have been low. Reticulocyte inappropriately low. Remains afebrile. Will involve hematology on Monday. In case the patient were to spike a fever or appear ill, we will broaden antibiotic coverage and consider transferring the patient. (8) Occult blood in stools Current Visit: Yes Status: Acute Assessment and plan: Hb remains stable. Will involve gastroenterology on Monday. - Time Spent With Patient less than 15 minutes - Subjective Interval history: Doing well. No particular concern at this time. - Constitutional Vitals: Temp Pulse Resp BP Pulse Ox 98.4 F 60 17 153/55 90 03/03/18 19:23 03/03/18 19:23 03/03/18 19:23 03/03/18 19:23 03/03/18 19:23 General appearance: Present: cooperative, A&O X 3, pleasant, no acute distress, answers questions appropriately Exam: Gen: A&Ox3, NAD. HEENT: NCAT. Neck: No palpable lymphadenopathy or thyromegaly. CV: RRR, S1S2. 2/6, systolic murmur appreciated. Capillary refill < 2 seconds. Pulm: CTAB. Abd: (+)BS. NDNT. Neuro: Generalized weakness, otherwise non-focal. Skin: No rash. Ext: RLE in brace. No pitting edema in LLE. Internal Medicine: Result - Labs CBC & Chem 7: 03/04/18 05:28 03/04/18 05:28 Labs: Short CBC 03/04/18 Range/Units 05:28 WBC 1.9 L (4.3-11.1) K/mcL Hgb 8.8 L (11.5-15.4) g/dL Hct 28.8 L (35.3-44.9) % Plt Count 147 (140-400) K/mcL Neutrophils # 0.4 L (1.6-8.9) K/mcL BMP 03/04/18 05:28 Sodium 139 Potassium 3.9 Chloride 107 Carbon Dioxide 24 BUN 25 H Creatinine 2.01 H Glucose 88 Calcium 10.6 H Consult Discharge Plan - Plan Referrals: NONE,PCP [Primary Care Provider] -
[2018-03-04] MEDS: amLODIPine 5 MG TABLET PO SCH (12:02)
[2018-03-04] MEDS: Multivit/Ca/Min/Fe/FA 1 TAB TABLET PO SCH (15:04)
[2018-03-04] MEDS: [UNRECOGNIZED DRUG - OTHER] PO SCH (15:07)
[2018-03-04] MEDS: Cyanocobalamin (B-12) 1,000 MCG TABLET PO SCH (15:07)
[2018-03-04] MEDS: Latanoprost 2.5 ML BOTTLE BOTH EYES SCH (21:56)
[2018-03-04] MEDS: PROGESTERONE MICRONIZED 200 MG PO SCH (21:57)
[2018-03-05] MEDS: *HR* Enoxaparin 30 MG/0.3 ML SYRINGE SQ SCH (06:45)
[2018-03-05] MEDS: NATURE THROID 97.5 MG PO SCH (06:45)
[2018-03-05] MEDS: Ondansetron ODT 4 MG TAB.RAPDIS SL PRN ×2 (07:10→16:04)
[2018-03-05] MEDS: *HR* OxyCODONE Immed Rel 5 MG TABLET PO PRN ×4 (07:10→21:42)
[2018-03-05] MEDS: Psyllium 1 PACKET POWD.PACK PO SCH ×2 (10:03→21:32)
[2018-03-05] MEDS: Ascorbic Acid 500 MG TABLET PO SCH ×2 (10:04→21:32)
[2018-03-05] MEDS: Lactobacillus 1 EACH CAP.SPRINK PO SCH (10:04)
[2018-03-05] MEDS: amLODIPine 5 MG TABLET PO SCH (10:04)
[2018-03-05] MEDS: [UNRECOGNIZED DRUG - OTHER] PO SCH (10:05)
[2018-03-05] MEDS: Verapamil ER (24 HR) 240 MG TABLET.ER PO SCH (10:05)
[2018-03-05] MEDS: NIACIN 500 MG PO SCH (10:06)
--- NOTE | 2018-03-05 10:09 | Internal Med Progress Note ---
Addendum entered and electronically signed by Bret Saeed MD 03/05/18 11:56: I have personally performed a face to face evaluation on this patient. I have r eviewed and agree with the care plan. History and Exam by me shows: Patient is feeling relatively well, trying to wean narcotics. She is hopeful to go home, later this week. She has a and infectious disease follow-up visit in 3 days (not tomorrow as reported), and is looking forward to information about that. We discussed her neutropenia and let her know that her labs are being faxed to infectious disease. Discussed care with other providers and/or nursing. Patient has no complaint of chest discomfort, dyspnea, orthopnea, palpitations, nausea or vomiting, constipation or diarrhea, other changes in bowel habits, difficulty with urination, rash or itching, or other new complaints, except as mentioned above. Review of systems is otherwise negative. Examination: (Except as mentioned above): General: In no apparent distress. Alert and oriented 3. Nondiaphoretic. Head: Atraumatic and normocephalic. Respiratory: No use of accessory muscles. Lungs are clear throughout. Normal airflow. Cardiovascular: Regular rate and rhythm without murmur appreciated. Abdomen: Bowel sounds are normal. No hepatosplenomegaly mass or tenderness appreciated. Obese and therefore difficult to palpate deeply. Extremities: No cyanosis clubbing or edema. Skin: Warm and non-diaphoretic with no new lesions noted. We will continue to follow and will see if hematology can see her this week and/or if any other information or suggestions are forthcoming. I do not feel, she will ordering Neupogen at this time but we will check another CBC in a couple of days, so that is available for her infectious disease follow-up. Original Note: Date of Encounter: 03/05/18 Time of Encounter: 10:07 - Assessment and plan (1) Radial fracture Current Visit: Yes Status: Acute Assessment and plan: Pain controlled. Healing. Follow up with ortho as scheduled. brace removed per ortho. Qualifiers: Encounter type: subsequent encounter Radius location: shaft Fracture type: closed Fracture morphology: unspecified fracture morphology Laterality: right Fracture healing: with routine healing Qualified Code(s): S52.301D - Unspecified fracture of shaft of right radius, subsequent encounter for closed fracture with routine healing (2) Tibial plateau fracture Current Visit: Yes Status: Acute Assessment and plan: Pain controlled with oxycodone. Continue nonweightbearing status. Continue brace. Follow up with ortho as scheduled. Continue PO antibiotics. ID following. Qualifiers: Encounter type: subsequent encounter Fracture type: closed Laterality: right Fracture healing: with routine healing Qualified Code(s): S82.141D - Displaced bicondylar fracture of right tibia, subsequent encounter for closed fracture with routine healing (3) Hypertension Current Visit: Yes Status: Chronic Assessment and plan: Controlled with current medication. Monitor blood pressure. Qualifiers: Hypertension type: essential hypertension Qualified Code(s): I10 - Essential (primary) hypertension (4) Rib fractures Current Visit: Yes Status: Acute Assessment and plan: Pain controlled. Healing. Qualifiers: Encounter type: subsequent encounter Rib fracture type: multiple ribs Fracture type: closed Laterality: bilateral Fracture healing: with routine healing Qualified Code(s): S22.43XD - Multiple fractures of ribs, bilateral, subsequent encounter for fracture with routine healing (5) Traumatic compression fracture of T8 thoracic vertebra Current Visit: Yes Status: Acute Assessment and plan: Pain controlled. follow up with neuro as scheduled. Qualifiers: Encounter type: subsequent encounter Fracture healing: with routine healing Qualified Code(s): S22.060D - Wedge compression fracture of T7-T8 vertebra, subsequent encounter for fracture with routine healing (6) Chronic kidney disease, stage III (moderate) Current Visit: Yes Status: Chronic Assessment and plan: Creatinine 2.44. Labs reported to infectious disease. They recommended IV fluids ordered. Will order 2 L normal saline. Repeat and follow labs. Avoid any nephrotoxic agents. (7) Pancytopenia Current Visit: Yes Status: Acute Assessment and plan: WBC 1.9. hematology consulted. ID appt tomorrow. will repeat labs in am. (8) Occult blood in stools Current Visit: Yes Status: Acute Assessment and plan: will repeat. hgb stable 8.8 - Subjective Interval history: Participating well with therapy. Up in wheelchair at this time, propelling self in hallway. Denies fever, chills, vomiting or diarrhea. states pain is controlled without meds. Bowels last moved yesterday. Maintaining appetite and hydration. has infectious disease appt tomorrow. - Constitutional Vitals: Temp Pulse Resp BP Pulse Ox 97.5 F L 59 16 138/54 90 03/05/18 06:58 03/05/18 06:58 03/05/18 06:58 03/05/18 06:58 03/05/18 06:58 General appearance: Present: cooperative, A&O X 3, pleasant, no acute distress, answers questions appropriately - Head Head exam: Present: atraumatic, normocephalic - Eye Eye exam: Present: PERRL, conjuntiva pink, sclera anicteric Pupils: Present: PERRL - Neck Neck exam general surgery: Present: supple, trachea midline. Absent: lymphade nopathy - Respiratory Respiratory exam: Present: CTAB. Absent: accessory muscle use, rales, rhonchi, wheezes - Cardiovascular Cardiovascular exam: Present: RRR, +S1, +S2. Absent: diastolic murmur, gallop, rubs, systolic murmur - GI/Abdominal GI/Abdominal exam: Present: normal bowel sounds, soft, no peritoneal signs. Absent: distended, tenderness - Extremities Exam Extremities exam: Present: warm, radial pulses palpable and symmetrical. Absent: calf tenderness, cyanotic, pedal edema Additional comments: RLE, drsg dry and intact. brace on. slight edema, nonpitting in pedal area, nontender - Neurological Exam Neurological exam: Present: CN II-XII intact, oriented X3, no focal deficits. Absent: pronater drift, facial droop, speech deficit - Skin Skin exam: Present: dry, intact Internal Medicine: Result - Labs CBC & Chem 7: 03/04/18 05:28 03/04/18 05:28 Consult Discharge Plan - Plan Referrals: NONE,PCP [Primary Care Provider] -
[2018-03-05 10:55] LABS: Basophils % 1.4 %; Eosinophils # 0.1 K/mcL (0.0-0.6); Eosinophils % 3.7 %; Hematocrit 31.8 % (35.3-44.9); Hemoglobin 9.8 g/dL (11.5-15.4); Lymphocytes # 1.2 K/mcL (0.6-4.6); Lymphocytes % 53.9 %; Mean Corpuscular HGB Conc 30.8 g/dL (31.6-35.5); Mean Corpuscular Hemoglobin 28.7 pg (28.0-33.3); Mean Corpuscular Volume 93.3 fL (83.0-100.0); Mean Platelet Volume 10.7 fL (9.4-12.4); Monocytes # 0.6 K/mcL (0.0-1.3); Monocytes % 26.5 %; Neutrophils # 0.3 K/mcL (1.6-8.9); Platelet Count 173 K/mcL (140-400); Red Blood Count 3.41 M/mcL (3.82-4.97); Red Cell Distribution Width 14.8 % (11.5-14.5); Segmented Neutrophils % 14.5 %
[2018-03-05 11:15] LABS: Platelet Estimate Normal (Normal); Reactive Lymphocytes Present (Not Present)
[2018-03-05 11:26] LABS: Albumin 3.1 g/dL (3.5-5.7); Albumin/Globulin Ratio 1.3 (1.1-2.2); Bilirubin,Indirect 0.4 mg/dL (0.0-1.2); Bilirubin,Total 0.4 mg/dL (0.3-1.0); Calcium 10.5 mg/dL (8.6-10.3); Globulin 2.4 g/dL (2.4-3.5); Potassium 4.1 mEq/L (3.5-5.1); Total Protein 5.5 g/dL (6.4-8.9)
[2018-03-05] MEDS: Cyanocobalamin (B-12) 1,000 MCG TABLET PO SCH (16:04)
[2018-03-05] MEDS: Multivit/Ca/Min/Fe/FA 1 TAB TABLET PO SCH (16:07)
[2018-03-05] MEDS: Latanoprost 2.5 ML BOTTLE BOTH EYES SCH (21:35)
[2018-03-05] MEDS: PROGESTERONE MICRONIZED 200 MG PO SCH (21:36)
[2018-03-06] MEDS: NATURE THROID 97.5 MG PO SCH (05:39)
[2018-03-06] MEDS: *HR* Enoxaparin 30 MG/0.3 ML SYRINGE SQ SCH (05:40)
[2018-03-06 06:01] LABS: Basophils % 1.4 %; Eosinophils # 0.1 K/mcL (0.0-0.6); Eosinophils % 2.3 %; Hematocrit 28.3 % (35.3-44.9); Hemoglobin 8.7 g/dL (11.5-15.4); Lymphocytes # 1.2 K/mcL (0.6-4.6); Lymphocytes % 53.4 %; Mean Corpuscular HGB Conc 30.7 g/dL (31.6-35.5); Mean Corpuscular Hemoglobin 28.6 pg (28.0-33.3); Mean Corpuscular Volume 93.1 fL (83.0-100.0); Mean Platelet Volume 10.4 fL (9.4-12.4); Monocytes # 0.6 K/mcL (0.0-1.3); Monocytes % 25.6 %; Neutrophils # 0.4 K/mcL (1.6-8.9); Platelet Count 147 K/mcL (140-400); Red Blood Count 3.04 M/mcL (3.82-4.97); Red Cell Distribution Width 14.8 % (11.5-14.5); Segmented Neutrophils % 17.3 %
[2018-03-06] MEDS: *HR* OxyCODONE Immed Rel 5 MG TABLET PO PRN ×3 (06:16→21:23)
[2018-03-06] MEDS: Ondansetron ODT 4 MG TAB.RAPDIS SL PRN ×2 (06:17→16:44)
[2018-03-06 06:47] LABS: Calcium 10.2 mg/dL (8.6-10.3); Potassium 3.8 mEq/L (3.5-5.1)
[2018-03-06 06:56] LABS: Platelet Estimate Normal (Normal)
[2018-03-06 06:57] LABS: Macrocytosis Present (Not Present); Microcytosis Present (Not Present)
[2018-03-06] MEDS: Ascorbic Acid 500 MG TABLET PO SCH ×2 (09:05→21:01)
[2018-03-06] MEDS: amLODIPine 5 MG TABLET PO SCH (09:05)
[2018-03-06] MEDS: Psyllium 1 PACKET POWD.PACK PO SCH ×2 (09:05→21:02)
[2018-03-06] MEDS: Verapamil ER (24 HR) 240 MG TABLET.ER PO SCH (09:05)
[2018-03-06] MEDS: [UNRECOGNIZED DRUG - OTHER] PO SCH (09:06)
[2018-03-06] MEDS: NIACIN 500 MG PO SCH (09:06)
[2018-03-06] MEDS: Lactobacillus 1 EACH CAP.SPRINK PO SCH (09:06)
--- NOTE | 2018-03-06 10:46 | Internal Med Progress Note ---
Date of Encounter: 03/06/18 Time of Encounter: 11:00 - Assessment and plan (1) Radial fracture Current Visit: Yes Status: Acute Assessment and plan: While this is doing better, she continues to need strengthening and her wheelcha ir will need to be with a table/plateau to allow continued therapeutic strengthening. Qualifiers: Encounter type: subsequent encounter Radius location: shaft Fracture type: closed Fracture morphology: unspecified fracture morphology Laterality: right Fracture healing: with routine healing Qualified Code(s): S52.301D - Unspecified fracture of shaft of right radius, subsequent encounter for closed fracture with routine healing (2) Tibial plateau fracture Current Visit: Yes Status: Acute Assessment and plan: She continues on oral antibiotics and has infectious disease follow-up in 2 days. Renal function, neutropenia, and ongoing need for treatment are concerns. She is nonweightbearing on the right lower extremity and requires wheelchair for this. The patient requires a standard wheelchair to successfully complete activities of daily living including: Toileting, feeding, bathing, dressing, and grooming. This includes daily tasks in the home. A standard wheelchair is necessary due to the patient's impaired ambulation and mobility restrictions as they would be unable to resolve these daily living tasks using a cane or walker. The patient is capable of using a standard wheelchair safely in the home and can maneuver within the home without problems; they have adequate access. There is a caregiver available to provide assistance. The patient has not expressed an unwillingness to use the wheelchair. Qualifiers: Encounter type: subsequent encounter Fracture type: closed Laterality: right Fracture healing: with routine healing Qualified Code(s): S82.141D - Displaced bicondylar fracture of right tibia, subsequent encounter for closed fracture with routine healing (3) Hypertension Current Visit: Yes Status: Chronic Assessment and plan: This has been stable, recently. Qualifiers: Hypertension type: essential hypertension Qualified Code(s): I10 - Essential (primary) hypertension (4) Chronic kidney disease, stage III (moderate) Current Visit: Yes Status: Chronic Assessment and plan: Recently stable, have encouraged patient to maintain fluid intake and this will need to be followed carefully after discharge. (5) Suspected sleep apnea Current Visit: No Status: Acute Assessment and plan: We have encouraged patient to have this evaluated, again. (6) Pancytopenia Current Visit: Yes Status: Acute Assessment and plan: As above, this is now mainly neutropenia. This must be followed, long-term. (7) Adjustment disorder with anxiety Current Visit: No Status: Acute Assessment and plan: Anxiety continues to be an intermittent problem and she is to see psychology, tomorrow. - Subjective Interval history: Patient is without complaint. Patient has no complaint of chest discomfort, dyspnea, orthopnea, palpitations, nausea or vomiting, constipation or diarrhea, other changes in bowel habits, difficulty with urination, rash or itching, or other new complaints, except as mentioned above. Review of systems is otherwise negative. I discussed management of her care with nursing staff. - Constitutional Vitals: Temp Pulse Resp BP Pulse Ox 97.4 F L 60 17 140/68 93 03/06/18 09:00 03/06/18 09:00 03/06/18 09:00 03/06/18 09:00 03/06/18 09:00 Exam: Examination: (Except as mentioned above): General: In no apparent distress. Alert and oriented 3. Nondiaphoretic. Head: Atraumatic and normocephalic. Respiratory: No use of accessory muscles. Lungs are clear throughout. Normal airflow. Cardiovascular: Regular rate and rhythm without murmur appreciated. Abdomen: Bowel sounds are normal. No hepatosplenomegaly mass or tenderness appreciated. Obese and therefore difficult to palpate deeply. Extremities: No cyanosis clubbing or edema. Right lower extremity while atrophic his doing well and has no problems with the wound, discharge, etc. Excoriated areas are healing, and distal postero-lateral aspect of calf. No cord or calf tenderness. Patient states that her ankles are swollen, slightly, but I do not appreciate this. Skin: Warm and non-diaphoretic with no new lesions noted. Internal Medicine: Result - Labs CBC & Chem 7: 03/06/18 05:55 03/06/18 05:55 Labs: Short CBC 03/05/18 03/06/18 Range/Units 10:50 05:55 WBC 2.2 L 2.2 L (4.3-11.1) K/mcL Hgb 9.8 L 8.7 L (11.5-15.4) g/dL Hct 31.8 L 28.3 L (35.3-44.9) % Plt Count 173 147 (140-400) K/mcL Neutrophils # 0.3 L 0.4 L (1.6-8.9) K/mcL BMP 03/05/18 03/06/18 10:50 05:55 Sodium 139 140 Potassium 4.1 3.8 Chloride 107 108 H Carbon Dioxide 27 28 BUN 26 H 23 Creatinine 1.90 H 1.72 H Glucose 128 H 83 Calcium 10.5 H 10.2 Liver Function 03/05/18 Range/Units 10:50 Total Bilirubin 0.4 (0.3-1.0) mg/dL Direct Bilirubin 0.0 (0.0-0.2) mg/dL AST 15 (13-39) Units/L ALT 12 (7-52) Units/L Alkaline Phosphatase 82 (34-104) Units/L Albumin 3.1 L (3.5-5.7) g/dL Consult Discharge Plan - Plan Referrals: NONE,PCP [Primary Care Provider] -
[2018-03-06] MEDS: Multivit/Ca/Min/Fe/FA 1 TAB TABLET PO SCH (16:43)
[2018-03-06] MEDS: Cyanocobalamin (B-12) 1,000 MCG TABLET PO SCH (16:43)
[2018-03-06] MEDS: PROGESTERONE MICRONIZED 200 MG PO SCH (20:58)
[2018-03-06] MEDS: Latanoprost 2.5 ML BOTTLE BOTH EYES SCH (21:00)
[2018-03-07] MEDS: *HR* Enoxaparin 30 MG/0.3 ML SYRINGE SQ SCH (05:48)
[2018-03-07] MEDS: Thyroid (Amour) 30 MG TABLET PO SCH (05:48)
[2018-03-07 06:53] LABS: Hematocrit 31.3 % (35.3-44.9); Hemoglobin 9.7 g/dL (11.5-15.4); Mean Corpuscular Hemoglobin 28.9 pg (28.0-33.3); Mean Corpuscular Volume 93.2 fL (83.0-100.0); Mean Platelet Volume 11.2 fL (9.4-12.4); Platelet Count 193 K/mcL (140-400); Red Blood Count 3.36 M/mcL (3.82-4.97); Red Cell Distribution Width 14.8 % (11.5-14.5)
[2018-03-07] MEDS: Ondansetron ODT 4 MG TAB.RAPDIS SL PRN (08:00)
[2018-03-07] MEDS: Psyllium 1 PACKET POWD.PACK PO SCH ×2 (08:28→21:06)
[2018-03-07] MEDS: amLODIPine 5 MG TABLET PO SCH (08:28)
[2018-03-07] MEDS: Lactobacillus 1 EACH CAP.SPRINK PO SCH (08:28)
[2018-03-07] MEDS: *HR* OxyCODONE Immed Rel 5 MG TABLET PO PRN ×4 (08:29→22:01)
[2018-03-07] MEDS: Verapamil ER (24 HR) 240 MG TABLET.ER PO SCH (08:30)
[2018-03-07] MEDS: Ascorbic Acid 500 MG TABLET PO SCH ×2 (08:30→21:04)
[2018-03-07] MEDS: [UNRECOGNIZED DRUG - OTHER] PO SCH (08:33)
[2018-03-07] MEDS: NIACIN 500 MG PO SCH (08:34)
--- NOTE | 2018-03-07 08:57 | Internal Med Progress Note ---
Addendum entered and electronically signed by Bret Saeed MD 03/07/18 12:33: I have personally performed a face to face evaluation on this patient. I have r eviewed and agree with the care plan. History and Exam by me shows: Patient is feeling somewhat constipated but is otherwise feeling well. She continues to progress with therapy and is planning to leave here tomorrow. She denies other complaints and is continuing to strengthen her right forearm. She has not been wearing the brace. Nursing requests an order to discontinue same. Discussed care with other providers and/or nursing. Patient has no complaint of chest discomfort, dyspnea, orthopnea, palpitations, nausea or vomiting, constipation or diarrhea, other changes in bowel habits, difficulty with urination, rash or itching, or other new complaints, except as mentioned above. Review of systems is otherwise negative. Examination: (Except as mentioned above): General: In no apparent distress. Alert and oriented 3. Nondiaphoretic. Head: Atraumatic and normocephalic. Respiratory: No use of accessory muscles. Lungs are clear throughout. Normal airflow. Cardiovascular: Regular rate and rhythm without murmur appreciated. Abdomen: Bowel sounds are normal. No hepatosplenomegaly mass or tenderness appreciated. Obese and therefore difficult to palpate deeply. Patient is examined upright in chair and this also limits exam. Extremities: No cyanosis clubbing or edema. Skin: Warm and non-diaphoretic with no new lesions noted. Original Note: Date of Encounter: 03/07/18 Time of Encounter: 08:56 - Assessment and plan (1) Radial fracture Current Visit: Yes Status: Acute Assessment and plan: Pain controlled. Healing. Follow up with ortho as scheduled. brace removed per ortho. Qualifiers: Encounter type: subsequent encounter Radius location: shaft Fracture type: closed Fracture morphology: unspecified fracture morphology Lateralit y: right Fracture healing: with routine healing Qualified Code(s): S52.301D - Unspecified fracture of shaft of right radius, subsequent encounter for closed fracture with routine healing (2) Tibial plateau fracture Current Visit: Yes Status: Acute Assessment and plan: Pain controlled with oxycodone. Continue nonweightbearing status. Continue brace. Follow up with ortho as scheduled. Continue PO antibiotics. ID following. Qualifiers: Encounter type: subsequent encounter Fracture type: closed Laterality: right Fracture healing: with routine healing Qualified Code(s): S82.141D - Displaced bicondylar fracture of right tibia, subsequent encounter for closed fracture with routine healing (3) Hypertension Current Visit: Yes Status: Chronic Assessment and plan: Controlled with current medication. Monitor blood pressure. Qualifiers: Hypertension type: essential hypertension Qualified Code(s): I10 - Essential (primary) hypertension (4) Rib fractures Current Visit: Yes Status: Acute Assessment and plan: Pain controlled. Healing. Qualifiers: Encounter type: subsequent encounter Rib fracture type: multiple ribs Fracture type: closed Laterality: bilateral Fracture healing: with routine healing Qualified Code(s): S22.43XD - Multiple fractures of ribs, bilateral, subsequent encounter for fracture with routine healing (5) Traumatic compression fracture of T8 thoracic vertebra Current Visit: Yes Status: Acute Assessment and plan: Pain controlled. follow up with neuro as scheduled. Qualifiers: Encounter type: subsequent encounter Fracture healing: with routine healing Qualified Code(s): S22.060D - Wedge compression fracture of T7-T8 vertebra, subsequent encounter for fracture with routine healing (6) Chronic kidney disease, stage III (moderate) Current Visit: Yes Status: Chronic Assessment and plan: labs improving. Avoid any nephrotoxic agents. - Time Spent With Patient less than 15 minutes - Subjective Interval history: Participating well with therapy. Denies fever, chills, vomiting or diarrhea. states pain is controlled without meds. Bowels last moved yesterday. Maintaining appetite and hydration. has infectious disease appt tomorrow. WBC improving. planning for discharge tomorrow. - Constitutional Vitals: Temp Pulse Resp BP Pulse Ox 98.2 F 95 17 138/64 95 03/07/18 07:16 03/07/18 07:16 03/07/18 07:16 03/07/18 07:16 03/07/18 07:16 General appearance: Present: cooperative, A&O X 3, pleasant, no acute distress, answers questions appropriately - Head Head exam: Present: atraumatic, normocephalic - Eye Eye exam: Present: PERRL, conjuntiva pink, sclera anicteric Pupils: Present: PERRL - Neck Neck exam general surgery: Present: supple, trachea midline. Absent: lymphadenopathy - Respiratory Respiratory exam: Present: CTAB. Absent: accessory muscle use, rales, rhonchi, wheezes - Cardiovascular Cardiovascular exam: Present: RRR, +S1, +S2. Absent: diastolic murmur, gallop, rubs, systolic murmur - GI/Abdominal GI/Abdominal exam: Present: normal bowel sounds, soft, no peritoneal signs. Absent: distended, tenderness - Extremities Exam Extremities exam: Present: warm, radial pulses palpable and symmetrical. Absent: calf tenderness, cyanotic, pedal edema - Incison Comments: right knee incision healing. no drainage. - Neurological Exam Neurological exam: Present: CN II-XII intact, oriented X3, no focal deficits. A bsent: pronater drift, facial droop, speech deficit - Skin Skin exam: Present: dry, intact Internal Medicine: Result - Labs CBC & Chem 7: 03/07/18 06:13 03/06/18 05:55 Labs: Short CBC 03/07/18 Range/Units 06:13 WBC 3.5 L D (4.3-11.1) K/mcL Hgb 9.7 L (11.5-15.4) g/dL Hct 31.3 L (35.3-44.9) % Plt Count 193 (140-400) K/mcL Consult Discharge Plan - Plan Referrals: NONE,PCP [Primary Care Provider] -
--- NOTE | 2018-03-07 11:38 | Rehab Psychology Progress Note ---
Date of Encounter: 03/07/18 Time of Encounter: 11:00 Subjective - Patient Report Patient Report: Pt excited to go home yet concerned that all needed supplies etc will be there tomorrow. She does not plan on working for some time and will focus on marriage and home independence. SHe has been reducing pain meds and feels more mentally together. Objective - WHODAS Functional Impairment Concentration, Problem-solving, Communication: None Self-Care: None Social Functioning: None Community Involvement/Hobbies: Mild - Comments Functional Status Comments: Conversation was intact and displayed good insight into conditions. Some concerns with getting out in the community thus will take her time. - Mental Status Mental Status Changes: Improvement noted with cognition. Able to problem solve and maintain train of thought throughout session.Mood improved. Stated mood "good". Assessment and Plan - Diagnosis (1) Adjustment disorder with anxiety - Response to Treatment Response to Treatment: Improved - Prognosis Prognosis: Good - Treatment Plan Changes in Treatment Plan Goals: She is to contact if she notes shift in cognition after home and pain meds reduced, especially if difficulty returning to work in several months.
[2018-03-07 14:28] LABS: Basophils % 0.8 %; Eosinophils % 0.8 %; Immature Granulocytes % 0.3 % (0-4); Lymphocytes # 1.6 K/mcL (0.6-4.6); Lymphocytes % 43.9 %; Monocytes # 0.7 K/mcL (0.0-1.3); Neutrophils # 1.2 K/mcL (1.6-8.9); Segmented Neutrophils % 34.2 %
[2018-03-07] MEDS: Multivit/Ca/Min/Fe/FA 1 TAB TABLET PO SCH (18:12)
[2018-03-07] MEDS: Cyanocobalamin (B-12) 1,000 MCG TABLET PO SCH (18:12)
[2018-03-07 19:43] VITALS: BP 126/55
[2018-03-07] MEDS: Latanoprost 2.5 ML BOTTLE BOTH EYES SCH (21:06)
[2018-03-07] MEDS: PROGESTERONE MICRONIZED 200 MG PO SCH (21:06)
[2018-03-08] MEDS: *HR* Enoxaparin 30 MG/0.3 ML SYRINGE SQ SCH (06:21)
[2018-03-08] MEDS: Thyroid (Amour) 30 MG TABLET PO SCH (06:21)
[2018-03-08] MEDS: *HR* OxyCODONE Immed Rel 5 MG TABLET PO PRN ×2 (06:49→11:40)
[2018-03-08] MEDS: Ondansetron ODT 4 MG TAB.RAPDIS SL PRN ×2 (06:53→11:40)
[2018-03-08] MEDS: Ascorbic Acid 500 MG TABLET PO SCH (09:16)
[2018-03-08] MEDS: Verapamil ER (24 HR) 240 MG TABLET.ER PO SCH (09:16)
[2018-03-08] MEDS: Lactobacillus 1 EACH CAP.SPRINK PO SCH (09:16)
[2018-03-08] MEDS: amLODIPine 5 MG TABLET PO SCH (09:37)
[2018-03-08] MEDS: Psyllium 1 PACKET POWD.PACK PO SCH (09:37)
[2018-03-08] MEDS: [UNRECOGNIZED DRUG - OTHER] PO SCH (09:38)
[2018-03-08] MEDS: NIACIN 500 MG PO SCH (09:39)
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
--- NOTE | 2018-03-08 10:35 | Physician Discharge Referral ---
Addendum entered and electronically signed by Bret Saeed MD 03/08/18 11:07: Original Note: Home Health/Hosp Referral Info Transfer to: Home Health Provider in Charge Post Discharge: PCP - Diagnosis (1) Tibial plateau fracture Priority: Primary Status: Acute (2) Radial fracture Priority: Secondary Status: Acute (3) Hypertension Priority: Secondary Status: Chronic (4) Chronic kidney disease, stage III (moderate) Priority: Secondary Status: Chronic (5) Rib fractures Priority: Secondary Status: Acute (6) Traumatic compression fracture of T8 thoracic vertebra Priority: Secondary Status: Acute - Respiratory Orders Smoking Cessation: Smoking cessation has been advised. For more information, call the [place] Tobacco Quit Line at 6-374-YCDQ-NOW. - Dressing/Wound Care Site: right leg ernie wrap dressing - Diet/Nutrition Diet/Nutrition Orders: No Added Salt (RACQUEL), Renal - Activity Activity Orders: Up ad sofia, Chair - Services Needed Following services are medically necessary services: Nursing, Physical Therapy, Occupational Therapy - Transfer Medications Home Medications: Acetaminophen [Tylenol] 975 mg PO Q8HR PRN 01/18/18 [History] Acidophilus Probiotic 1 cap PO DAILY 01/18/18 [History] Allopurinol [Zyloprim 100 MG] 100 mg PO DAILY 01/18/18 [History] Brimonidine 0.2% 0.2 % BOTH EYES BID 01/18/18 [History] Carvedilol [Coreg] 12.5 mg PO Q12H 01/18/18 [History] Cholecalciferol (D-3) 2,000 units PO DAILY 01/18/18 [History] Furosemide [Lasix] 40 mg PO DAILY 01/18/18 [History] Icaps Areds Formula Dr Tablet 1 tab PO DAILY 01/18/18 [History] Latanoprost 0.005% Eye Drop 0.5 % BOTH EYES HS 01/18/18 [History] Lidocaine Patch [Lidoderm 5% patch] 5 % TP DAILY 01/18/18 [History] Montelukast [Singulair] 10 mg PO HS 01/18/18 [History] Multivit,Calc,Mins/Iron/Folic 1 tab PO DAILY 01/18/18 [History] Niacin 500 mg Capsule 500 mg PO DAILY 01/18/18 [History] Ondansetron ODT [Zofran ODT] 4 mg SL Q6HR PRN 01/18/18 [History] Oxycodone HCl [Roxybond] 10 mg PO Q6HR PRN 01/18/18 [History] Polyethylene Glycol 3350 [MiraLAX] 17 gm PO DAILY 01/18/18 [History] Progesterone Micronized 200 mg PO HS 01/18/18 [History] Senna-Docusate Sodium Tablet 8.6 mg PO BID 01/18/18 [History] Timolol Maleate 0.5% 0.5 % BOTH EYES BID 01/18/18 [History] Verapamil ER (24 HR) 240 mg PO DAILY 01/18/18 [History] Albuterol Sulfate [Albuterol Inhaler] 90 mcg IH Q6HR PRN 02/07/18 [History] Cefepime HCl/D5w [Cefepime-Dextrose 2 gm/50 ml] 2 g IV BID 02/07/18 [History] Docusate [Colace] 100 mg PO DAILY 02/07/18 [History] Enoxaparin [Lovenox] 30 mg SQ Q12HR 02/07/18 [History] Losartan Potassium [Cozaar] 50 mg PO DAILY 02/07/18 [History] Methocarbamol [Robaxin-750] 750 mg PO Q6HR PRN 02/07/18 [History] Allergies/Adverse Reactions: Allergy/AdvReac Type Severity Reaction Status Date / Time atorvastatin [From Lipitor] Allergy Cramping Verified 01/18/18 14:46 of the Muscles Cefaclor [From Ceclor] Allergy Rash Verified 01/18/18 14:46 NSAIDS (Non-Steroidal Allergy Itching Verified 01/18/18 14:46 Anti-Inflamma Penicillins [PCN] Allergy Rash Verified 01/18/18 14:46 prednisone Allergy Nausea Verified 01/18/18 14:46 Sulfa (Sulfonamide Allergy Rash Verified 01/18/18 14:46 Antibiotics) Certification: Further, I certify that my clinical findings support that this patient is homebound (i.e. absences from home require considerable and taxing effort and are for medical reasons or mandaeism services or infrequently or short duration when for other reasons) because: Homebound Reason: Patient requires assistance of a person or device to safely leave home, Post-surgery restriction and or conditions limit ability to leave home, Leaving home requires considerable and taxing effort due to condition Attestation: My signature below is to certify that this patient is under my care and that I, or nurse practitioner, or a physician's unit assistant working with me, has a [id number] encounter with this patient.
== END 2018-03-08 11:45 | disposition home health service (06) | DRG 560 ==
LOC: INPGRE 13:58